=== PATIENT | male | born 1940 | race Caucasian/White ===

== ENCOUNTER 2017-03-23 05:25 | Inpatient (IN) | payer MEDICARE, MEDICAID ==
[~2017-03-23] VITALS: Ht 185.4 cm; Wt 91.8 kg
[~2017-03-23 05:25] MED LIST: CYAN50003 PO; FISH OIL; HYDR4TAB55 PO; LISI10TA4 PO; LONG ACTING INSULIN SQ; MULT-342 PO; [UNRECOGNIZED DRUG - OTHER]
[2017-03-23] MEDS ORDERED: normal saline 1000ML IV soln IVB ONE (06:30)
[2017-03-23] MEDS ORDERED: cefTRIAXone 1g/NS 100ml IVPB 100 ML IV ONE ×2 (06:30→10:45)
[2017-03-23 07:02] LABS: BASOPHILS % (AUTO) 0.2 % (0-1); EOSINOPHILS # (AUTO) 0.1 X10'3 (0-0.9); EOSINOPHILS % (AUTO) 2.3 % (0-6); HEMATOCRIT 39.1 % (42.0-52.0); HEMOGLOBIN 13.3 g/dl (14.0-17.9); LYMPHOCYTES # (AUTO) 0.8 X10'3 (1.1-4.8); LYMPHOCYTES % (AUTO) 12.6 % (21-51); MEAN CORPUSCULAR HEMOGLOBIN 29.1 PG (27.0-31.0); MEAN CORPUSCULAR VOLUME 85.5 FL (78-98); MEAN PLATELET VOLUME 8.3 FL (7.4-10.4); MONOCYTES # (AUTO) 0.6 X10'3 (0-0.9); MONOCYTES % (AUTO) 9.7 % (2-12); NEUTROPHILS # (AUTO) 4.6 X10'3 (1.8-7.7); NEUTROPHILS % (AUTO) 75.2 % (42-75); PLATELET COUNT 132 X10'3 (140-440); RED BLOOD COUNT 4.57 X10'6 (4.70-6.10); RED CELL DISTRIBUTION WIDTH 15.4 % (11.5-14.5); WHITE BLOOD COUNT 6.1 X10'3 (4.5-11.0)
[2017-03-23 07:07] LABS: CLARITY,URINE CLEAR (Clear); COLOR,URINE YELLOW (Yellow); GLUCOSE, URINE NEGATIVE (Neg); KETONES,URINE NEGATIVE (Neg); LEUKOCYTE ESTERASE ,URINE NEGATIVE (Neg); NITRITES, URINE NEGATIVE (Neg); OCCULT BLOOD,URINE NEGATIVE (Neg); PROTEIN,URINE NEGATIVE (Neg); UROBILINOGEN,URINE 0.2 E.U/dL (0.2-1.0)
[2017-03-23 07:09] LABS: UA COLLECTION TYPE URINAL
[2017-03-23 07:19] LABS: INR 1.1 INR; PARTIAL THROMBOPLASTIN TIME 28 SECONDS (22-32); PROTHROMBIN TIME 11.6 SECONDS (9.0-12.0)
[2017-03-23 07:26] LABS: ALANINE AMINOTRANSFERASE 20 U/L (12-78); ALBUMIN 3.8 G/DL (3.4-5.0); ALBUMIN/GLOBULIN RATIO 1.1 (1.1-1.5); ALKALINE PHOSPHATASE 118 IU/L (46-116); ANION GAP 9 (8-16); ASPARTATE AMINO TRANSFERASE 14 U/L (10-37); BILIRUBIN,TOTAL 0.7 MG/DL (0.1-1.0); BLOOD UREA NITROGEN 13 MG/DL (7-18); BUN/CREATININE RATIO 12.3 (5.4-32.0); CALCIUM 9.7 MG/DL (8.5-10.1); CHLORIDE 103 MMOL/L (99-107); CREATININE 1.06 MG/DL (0.60-1.10); GLUCOSE 83 MG/DL (70-104); MAGNESIUM 1.9 MG/DL (1.5-2.4); POTASSIUM 4.3 MMOL/L (3.5-5.1); SODIUM 139 MMOL/L (135-145); TOTAL CARBON DIOXIDE 27.4 MMOL/L (24-32); TOTAL PROTEIN 7.2 G/DL (6.4-8.2); eGFR 68 ML/MIN
[2017-03-23] MEDS ORDERED: iohexol 300mg/ml 100ml inj. ONE (07:37)
[2017-03-23] MEDS ORDERED: CefTRIAXone 2gm/NS 100ml IVPB 100 ML IV ONE (09:35)
[2017-03-23] MEDS ORDERED: vancomycin/NS 1 GM ADD-VANTAGE 250 ML IV ONE (09:35)
[2017-03-23] MEDS ORDERED: magnesium Cl slow-release 64mg tablet PO PRN (10:05)
[2017-03-23] MEDS ORDERED: potassium Cl 20 mEq SR tablet PO PRN ×2 (10:05)
[2017-03-23] MEDS ORDERED: HYDROmorphone 1 mg/ml syringe IV PRN ×2 (10:05)
[2017-03-23] MEDS ORDERED: acetaminophen 325mg tablet PO PRN (10:05)
[2017-03-23] MEDS ORDERED: magnesium hydroxide 30ml (MOM) UD suspension PO PRN (10:05)
[2017-03-23] MEDS ORDERED: mag hydrox/Alum hydrox/simeth 30ml oral suspension PO PRN (10:05)
[2017-03-23] MEDS ORDERED: potassium Cl 40MEQ/NS 500ml 500 ML IV PRN ×2 (10:05)
[2017-03-23] MEDS ORDERED: HYDROcodone/acetaminophen 5mg/325mg tablet PO PRN (10:05)
[2017-03-23] MEDS ORDERED: ondansetron/PF 4mg/2ml inj IV PRN (10:05)
[2017-03-23] MEDS ORDERED: magnesium 2GM in 50ml NS 50 ML IV PRN (10:05)
[2017-03-23] MEDS ORDERED: magnesium 4gm in 100ml NS 100 ML IV PRN (10:05)
[2017-03-23] MEDS: normal saline 1000ml 1,000 ML IV SCH ×2 (10:46→11:37)
[2017-03-23 11:30] VITALS: BP 153/87
[2017-03-23] MEDS: HYDROcodone/acetaminophen 10/325mg tab PO PRN (16:21)
[2017-03-23] MEDS: lactobacillus rhamnosus 10,000 MMU CELLS/CAPSULE PO SCH (17:33)
[2017-03-23 18:00] VITALS: BP 144/82
[2017-03-23] MEDS ORDERED: vancomycin/NS 1 GM ADD-VANTAGE 250 ML IV SCH (20:00)
[2017-03-23] MEDS: vancomycin inj 1,250 MG in normal saline 250ml IV soln 250 ML IV SCH (20:19)
[2017-03-23] MEDS ORDERED: temazepam 15mg capsule PO PRN (21:00)
[2017-03-23 22:00] VITALS: BP 144/73
[2017-03-23] MEDS: lisinopril 10 MG tablet PO SCH (22:22)
[2017-03-23] MEDS: tamsulosin 0.4mg capsule PO SCH (22:23)
[2017-03-24] VITALS (22 sets, daily range): BP systolic 110–179; BP diastolic 57–101
[2017-03-24] MEDS: normal saline 1000ml 1,000 ML IV SCH ×3 (01:18→22:47)
[2017-03-24] MEDS: HYDROcodone/acetaminophen 10/325mg tab PO PRN ×2 (01:21→20:23)
[2017-03-24 06:39] LABS: BASOPHILS % (AUTO) 0.6 % (0-1); EOSINOPHILS # (AUTO) 0.2 X10'3 (0-0.9); EOSINOPHILS % (AUTO) 4.1 % (0-6); HEMOGLOBIN 11.9 g/dl (14.0-17.9); LYMPHOCYTES # (AUTO) 0.9 X10'3 (1.1-4.8); LYMPHOCYTES % (AUTO) 21.5 % (21-51); MEAN CORPUSCULAR HEMOGLOBIN 28.6 PG (27.0-31.0); MEAN CORPUSCULAR HGB CONC 33.2 % (33.0-36.5); MEAN CORPUSCULAR VOLUME 86.3 FL (78-98); MEAN PLATELET VOLUME 8.1 FL (7.4-10.4); MONOCYTES # (AUTO) 0.4 X10'3 (0-0.9); MONOCYTES % (AUTO) 10.7 % (2-12); NEUTROPHILS # (AUTO) 2.6 X10'3 (1.8-7.7); NEUTROPHILS % (AUTO) 63.1 % (42-75); PLATELET COUNT 113 X10'3 (140-440); RED BLOOD COUNT 4.17 X10'6 (4.70-6.10); RED CELL DISTRIBUTION WIDTH 14.8 % (11.5-14.5); WHITE BLOOD COUNT 4.1 X10'3 (4.5-11.0)
[2017-03-24 06:58] LABS: ALANINE AMINOTRANSFERASE 11 U/L (12-78); ALBUMIN 3.1 G/DL (3.4-5.0); ALKALINE PHOSPHATASE 102 IU/L (46-116); ANION GAP 9 (8-16); ASPARTATE AMINO TRANSFERASE 9 U/L (10-37); BILIRUBIN,TOTAL 0.6 MG/DL (0.1-1.0); BLOOD UREA NITROGEN 11 MG/DL (7-18); BUN/CREATININE RATIO 11.5 (5.4-32.0); CALCIUM 8.9 MG/DL (8.5-10.1); CHLORIDE 107 MMOL/L (99-107); CHOL/HDL RATIO 3.1 (0.00-4.99); CHOLESTEROL 122 MG/DL (0-200); CREATININE 0.96 MG/DL (0.60-1.10); GLUCOSE 106 MG/DL (70-104); HDL CHOLESTEROL 40 MG/DL (35-60); LDL CHOLESTEROL 86 MG/DL (50-100); MAGNESIUM 1.8 MG/DL (1.5-2.4); POTASSIUM 3.9 MMOL/L (3.5-5.1); SODIUM 142 MMOL/L (135-145); TOTAL CARBON DIOXIDE 26.5 MMOL/L (24-32); TOTAL PROTEIN 6.2 G/DL (6.4-8.2); TRIGLYCERIDES 46 MG/DL (20-135); eGFR 76 ML/MIN
[2017-03-24] MEDS ORDERED: BUPIVAcaine/PF 2.5 mg/ml (0.25%) 30ml vial ONE (07:14)
[2017-03-24] MEDS: lactobacillus rhamnosus 10,000 MMU CELLS/CAPSULE PO SCH ×2 (07:29→17:46)
[2017-03-24] MEDS: multivitamins, therapeutics tablet PO SCH (08:00)
[2017-03-24] MEDS ORDERED: non-formulary drug (Multivitamins (Multi-Day Vitamin) 1 EACH) PO SCH (08:00)
[2017-03-24] MEDS: cefTRIAXone 1g/NS 100ml IVPB 100 ML IV SCH (08:00)
[2017-03-24] MEDS: vancomycin inj 1,250 MG in normal saline 250ml IV soln 250 ML IV SCH ×2 (08:00→20:22)
[2017-03-24] MEDS: tamsulosin 0.4mg capsule PO SCH ×2 (08:00→20:22)
[2017-03-24] MEDS ORDERED: fentaNYL/PF 50MCG/1 ML 2ML syringe ONE (08:07)
[2017-03-24] MEDS ORDERED: midazolam 2 mg/2 ml injection ONE (08:07)
[2017-03-24] MEDS ORDERED: ringers solution, lacted 1,000 ML IV SCH (08:50)
[2017-03-24] MEDS ORDERED: proCHLORperazine 10 MG/2 ml inj IV PRN (08:50)
[2017-03-24] MEDS ORDERED: ondansetron/PF 4mg/2ml inj IV PRN (08:50)
[2017-03-24] MEDS ORDERED: meperidine/PF 25mg/ml syringe IV PRN ×3 (08:50)
[2017-03-24] MEDS: K and/or MAG REPLACEMENT MC SCH (08:55)
[2017-03-24] MEDS ORDERED: NUT.TX.GLUC.INTOLER,LAC-FR,REG (BOOST GLUCOSE CONTROL) 237 ML PO SCH (18:00)
[2017-03-24] MEDS: lisinopril 10 MG tablet PO SCH (20:22)
[2017-03-24] MEDS ORDERED: MESSAGE TO PHARMACY PO ONE (22:30)
[2017-03-24] MEDS ORDERED: dextrose ORAL solution 15 GM/59 ML bottle PO PRN ×2 (22:30)
[2017-03-24] MEDS ORDERED: insulin Lispro (HumaLOG) vial - multi-dose SQ SCH (22:30)
[2017-03-24] MEDS ORDERED: dextrose 50%-water 50ml dispensing syringe IV PRN ×2 (22:30)
[2017-03-24] MEDS ORDERED: Insulin Detemir pen SQ ONE (23:12)
[2017-03-25 02:00] VITALS: BP 126/66
[2017-03-25 06:53] VITALS: BP 146/92
[2017-03-25] MEDS ORDERED: VANCOMYCIN LEVEL IV NR (07:30)
[2017-03-25] MEDS: tamsulosin 0.4mg capsule PO SCH (07:49)
[2017-03-25] MEDS: cefTRIAXone 1g/NS 100ml IVPB 100 ML IV SCH (07:49)
[2017-03-25] MEDS: multivitamins, therapeutics tablet PO SCH (07:49)
[2017-03-25] MEDS: lactobacillus rhamnosus 10,000 MMU CELLS/CAPSULE PO SCH (07:49)
[2017-03-25] MEDS: normal saline 1000ml 1,000 ML IV SCH (07:56)
[2017-03-25] MEDS: K and/or MAG REPLACEMENT MC SCH (08:00)
[2017-03-25 08:30] LABS: BASOPHILS % (AUTO) 0.4 % (0-1); EOSINOPHILS # (AUTO) 0.2 X10'3 (0-0.9); EOSINOPHILS % (AUTO) 3.3 % (0-6); HEMOGLOBIN 12.3 g/dl (14.0-17.9); LYMPHOCYTES % (AUTO) 20.3 % (21-51); MEAN CORPUSCULAR HEMOGLOBIN 28.6 PG (27.0-31.0); MEAN CORPUSCULAR HGB CONC 33.1 % (33.0-36.5); MEAN CORPUSCULAR VOLUME 86.3 FL (78-98); MEAN PLATELET VOLUME 8.3 FL (7.4-10.4); MONOCYTES # (AUTO) 0.5 X10'3 (0-0.9); NEUTROPHILS # (AUTO) 3.2 X10'3 (1.8-7.7); PLATELET COUNT 127 X10'3 (140-440); RED BLOOD COUNT 4.29 X10'6 (4.70-6.10); WHITE BLOOD COUNT 4.9 X10'3 (4.5-11.0)
[2017-03-25 08:35] LABS: ALANINE AMINOTRANSFERASE 14 U/L (12-78); ALBUMIN 3.2 G/DL (3.4-5.0); ALKALINE PHOSPHATASE 101 IU/L (46-116); ANION GAP 10 (8-16); ASPARTATE AMINO TRANSFERASE 16 U/L (10-37); BILIRUBIN,TOTAL 0.5 MG/DL (0.1-1.0); BLOOD UREA NITROGEN 12 MG/DL (7-18); BUN/CREATININE RATIO 13.2 (5.4-32.0); CALCIUM 9.3 MG/DL (8.5-10.1); CHLORIDE 105 MMOL/L (99-107); CREATININE 0.91 MG/DL (0.60-1.10); GLUCOSE 147 MG/DL (70-104); MAGNESIUM 1.8 MG/DL (1.5-2.4); POTASSIUM 3.5 MMOL/L (3.5-5.1); SODIUM 139 MMOL/L (135-145); TOTAL CARBON DIOXIDE 24.1 MMOL/L (24-32); TOTAL PROTEIN 6.4 G/DL (6.4-8.2); VANCOMYCIN,TROUGH 19.4 UG/ML (6.0-14.0); eGFR 81 ML/MIN
[2017-03-25] MEDS ORDERED: CEPH500C5 PO (09:22)
[2017-03-25] MEDS ORDERED: BACDS PO (09:22)
[2017-03-25] MEDS ORDERED: Insulin Detemir pen SQ SCH (21:00)
== END 2017-03-25 11:00 | disposition home or self-care (01) | DRG 982 ==
LOC: ER 05:26 → ED HOLD 10:05 → EEVIPCON 10:05 → ORTHO 4S 11:30
PROVIDERS: ADMIT Internal Medicine; ATTEND Family Medicine
PROC: BQ2S1ZZ Computerized Tomography (CT Scan) of Left Lower Extremity using Low Osmolar Contrast (ICD-10-PCS; 2017-03-23)
PROC: 0SCG0ZZ Extirpation of Matter from Left Ankle Joint, Open Approach (ICD-10-PCS; principal; 2017-03-24 08:08)
DX: L03.116 Cellulitis of left lower limb (principal); M00.9 Pyogenic arthritis, unspecified; D69.59 Other secondary thrombocytopenia; L02.612 Cutaneous abscess of left foot; D64.9 Anemia, unspecified; B95.62 Methicillin resistant Staphylococcus aureus infection as the cause of diseases classified elsewhere; E11.9 Type 2 diabetes mellitus without complications; B19.20 Unspecified viral hepatitis C without hepatic coma; R58 Hemorrhage, not elsewhere classified; I10 Essential (primary) hypertension; Z79.899 Other long term (current) drug therapy; Z85.72 Personal history of non-Hodgkin lymphomas
CPT/HCPCS: 36415; 73610; 73660; 73701; 80053; 80061; 80202; 81003; 82948; 83036; 83605; 83735; 84145; 85025; 85610; 85730; 87040; 87070; 87075; 87102; 87186; 96365; 99285; A6222; A6255; A6257; A6258; A6446; A6449; A7000; J0696; J2250; J3010; J3370; J3490; J7030; J7120; Q9967

== ENCOUNTER 2017-03-27 10:31 | Emergency (ER) | payer MEDICARE, MEDICAID ==
[~2017-03-27] VITALS: Ht 185.4 cm; Wt 92.0 kg
[~2017-03-27 10:31] MED LIST changes: +BACDS PO; +CEPH500C5 PO; -CYAN50003 PO; -[UNRECOGNIZED DRUG - OTHER]
[2017-03-27 12:45] LABS: BASOPHILS % (AUTO) 0.3 % (0-1); EOSINOPHILS # (AUTO) 0.1 X10'3 (0-0.9); EOSINOPHILS % (AUTO) 2.2 % (0-6); HEMATOCRIT 39.1 % (42.0-52.0); LYMPHOCYTES # (AUTO) 1.1 X10'3 (1.1-4.8); LYMPHOCYTES % (AUTO) 18.4 % (21-51); MEAN CORPUSCULAR HEMOGLOBIN 28.7 PG (27.0-31.0); MEAN CORPUSCULAR HGB CONC 33.1 % (33.0-36.5); MEAN CORPUSCULAR VOLUME 86.6 FL (78-98); MEAN PLATELET VOLUME 7.9 FL (7.4-10.4); MONOCYTES # (AUTO) 0.6 X10'3 (0-0.9); MONOCYTES % (AUTO) 9.1 % (2-12); NEUTROPHILS # (AUTO) 4.3 X10'3 (1.8-7.7); PLATELET COUNT 143 X10'3 (140-440); RED BLOOD COUNT 4.52 X10'6 (4.70-6.10); RED CELL DISTRIBUTION WIDTH 15.1 % (11.5-14.5); WHITE BLOOD COUNT 6.2 X10'3 (4.5-11.0)
[2017-03-27 12:56] LABS: INR 1.1 INR; PARTIAL THROMBOPLASTIN TIME 27 SECONDS (22-32); PROTHROMBIN TIME 11.8 SECONDS (9.0-12.0)
[2017-03-27 13:19] LABS: ALANINE AMINOTRANSFERASE 22 U/L (12-78); ALBUMIN 3.7 G/DL (3.4-5.0); ALBUMIN/GLOBULIN RATIO 1.1 (1.1-1.5); ALKALINE PHOSPHATASE 107 IU/L (46-116); ANION GAP 7 (8-16); ASPARTATE AMINO TRANSFERASE 17 U/L (10-37); BILIRUBIN,TOTAL 0.6 MG/DL (0.1-1.0); BLOOD UREA NITROGEN 15 MG/DL (7-18); BUN/CREATININE RATIO 13.3 (5.4-32.0); CALCIUM 9.7 MG/DL (8.5-10.1); CHLORIDE 103 MMOL/L (99-107); CREATININE 1.13 MG/DL (0.60-1.10); GLUCOSE 187 MG/DL (70-104); MAGNESIUM 2.1 MG/DL (1.5-2.4); POTASSIUM 3.9 MMOL/L (3.5-5.1); SODIUM 137 MMOL/L (135-145); eGFR 63 ML/MIN
[2017-03-27 14:02] LABS: CLARITY,URINE CLEAR (Clear); COLOR,URINE YELLOW (Yellow); GLUCOSE, URINE NEGATIVE (Neg); KETONES,URINE NEGATIVE (Neg); LEUKOCYTE ESTERASE ,URINE NEGATIVE (Neg); NITRITES, URINE NEGATIVE (Neg); OCCULT BLOOD,URINE TRACE-INTACT (Neg); PROTEIN,URINE NEGATIVE (Neg); UA COLLECTION TYPE CLN CATCH MIDSTREAM; UROBILINOGEN,URINE 0.2 E.U/dL (0.2-1.0)
[2017-03-27 14:07] VITALS: BP 128/65
[2017-03-27 14:10] LABS: HYALINE CASTS 0-3 /LPF (NEGATIVE); MUCUS STRANDS FEW /LPF (Neg); SQUAMOUS EPITHELIAL CELL,UR FEW /LPF (FEW)
[2017-03-27 14:11] LABS: BACTERIA,URINE FEW /HPF (Neg); RENAL CELLS, URINE FEW /HPF; WBC,URINE 0-4 /HPF (0-4)
== END 2017-03-27 14:10 | disposition home or self-care (01) ==
LOC: ER 10:31
DX: R60.0 Localized edema (principal); M25.572 Pain in left ankle and joints of left foot; G62.9 Polyneuropathy, unspecified; I10 Essential (primary) hypertension; E11.9 Type 2 diabetes mellitus without complications; Z98.890 Other specified postprocedural states; Z86.19 Personal history of other infectious and parasitic diseases; Z79.899 Other long term (current) drug therapy; Z79.4 Long term (current) use of insulin
CPT/HCPCS: 36415; 71045; 73600; 73630; 80053; 81001; 83605; 83735; 84145; 85025; 85610; 85651; 85730; 87040; 93005; 99285; A6446; A6449

== ENCOUNTER 2017-04-01 09:07 | Day surgery (SDC) | payer MEDICARE, MEDICAID | END 2017-04-01 11:19 | disposition home or self-care (01) | LOC: WOUND CARE 09:07 | PROVIDERS: ATTEND Surgery | DX: T81.89XD Other complications of procedures, not elsewhere classified, subsequent encounter (principal); E11.622 Type 2 diabetes mellitus with other skin ulcer; L97.321 Non-pressure chronic ulcer of left ankle limited to breakdown of skin; I10 Essential (primary) hypertension; E11.42 Type 2 diabetes mellitus with diabetic polyneuropathy; M00.9 Pyogenic arthritis, unspecified; Z96.653 Presence of artificial knee joint, bilateral; Z72.89 Other problems related to lifestyle; Z79.82 Long term (current) use of aspirin; Z79.899 Other long term (current) drug therapy; Y83.8 Other surgical procedures as the cause of abnormal reaction of the patient, or of later complication, without mention of misadventure at the time of the procedure | CPT/HCPCS: 10180; 36416; 82948; 87070; 87075; 87102; A6021; A6222; A6449; 10060 ==

== ENCOUNTER 2017-04-04 10:40 | Outpatient (CLI) | payer MEDICARE, MEDICAID ==
[~2017-04-04 10:40] MED LIST changes: -BACDS PO
[2017-04-04] MEDS ORDERED: LIDOcaine 2% 5ml jelly ONE (12:20)
== END 2017-04-04 12:49 | disposition home or self-care (01) ==
LOC: WOUND CARE 10:40 → EDSTATUS 11:00 → WOUND CARE 12:49
PROVIDERS: ATTEND Surgery
DX: T81.89XD Other complications of procedures, not elsewhere classified, subsequent encounter (principal); E11.622 Type 2 diabetes mellitus with other skin ulcer; L97.321 Non-pressure chronic ulcer of left ankle limited to breakdown of skin; I10 Essential (primary) hypertension; M00.9 Pyogenic arthritis, unspecified; E11.42 Type 2 diabetes mellitus with diabetic polyneuropathy; Z79.82 Long term (current) use of aspirin; Z79.899 Other long term (current) drug therapy; Z72.89 Other problems related to lifestyle; Z96.653 Presence of artificial knee joint, bilateral; Z79.4 Long term (current) use of insulin; Y83.8 Other surgical procedures as the cause of abnormal reaction of the patient, or of later complication, without mention of misadventure at the time of the procedure
CPT/HCPCS: 36416; 82948; 99215; A6266; A6446

== ENCOUNTER 2017-04-08 10:30 | Outpatient (CLI) | payer MEDICARE, MEDICAID | END 2017-04-08 11:45 | disposition home or self-care (01) | LOC: WOUND CARE 10:30 → EDSTATUS 11:00 → WOUND CARE 11:45 | PROVIDERS: ATTEND Surgery | DX: T81.89XD Other complications of procedures, not elsewhere classified, subsequent encounter (principal); E11.622 Type 2 diabetes mellitus with other skin ulcer; L97.321 Non-pressure chronic ulcer of left ankle limited to breakdown of skin; E11.42 Type 2 diabetes mellitus with diabetic polyneuropathy; I10 Essential (primary) hypertension; Z79.82 Long term (current) use of aspirin; Z79.4 Long term (current) use of insulin; Z79.899 Other long term (current) drug therapy; Z72.89 Other problems related to lifestyle; Z96.653 Presence of artificial knee joint, bilateral; Z85.72 Personal history of non-Hodgkin lymphomas; Z85.89 Personal history of malignant neoplasm of other organs and systems; Y83.8 Other surgical procedures as the cause of abnormal reaction of the patient, or of later complication, without mention of misadventure at the time of the procedure | CPT/HCPCS: 36416; 82948; 99215; A6266; A6446 ==

== ENCOUNTER 2017-04-11 10:34 | Outpatient (CLI) | payer MEDICARE, MEDICAID | END 2017-04-11 12:46 | disposition home or self-care (01) | LOC: WOUND CARE 10:34 | PROVIDERS: ATTEND Surgery | DX: T81.89XD Other complications of procedures, not elsewhere classified, subsequent encounter (principal); E11.622 Type 2 diabetes mellitus with other skin ulcer; L97.321 Non-pressure chronic ulcer of left ankle limited to breakdown of skin; E11.42 Type 2 diabetes mellitus with diabetic polyneuropathy; I10 Essential (primary) hypertension; B19.20 Unspecified viral hepatitis C without hepatic coma; Z79.82 Long term (current) use of aspirin; Z79.4 Long term (current) use of insulin; Z79.899 Other long term (current) drug therapy; Z72.89 Other problems related to lifestyle; Z85.89 Personal history of malignant neoplasm of other organs and systems; Z85.72 Personal history of non-Hodgkin lymphomas; Z96.653 Presence of artificial knee joint, bilateral; Y83.8 Other surgical procedures as the cause of abnormal reaction of the patient, or of later complication, without mention of misadventure at the time of the procedure | CPT/HCPCS: 36416; 82948; 99215; A6209; A6266; A6446 ==

== ENCOUNTER 2017-04-15 09:57 | Outpatient (CLI) | payer MEDICARE, MEDICAID | END 2017-04-15 11:59 | disposition home or self-care (01) | LOC: WOUND CARE 09:57 → EDSTATUS 10:00 → WOUND CARE 11:59 | PROVIDERS: ATTEND Surgery | DX: T81.89XD Other complications of procedures, not elsewhere classified, subsequent encounter (principal); E11.622 Type 2 diabetes mellitus with other skin ulcer; L97.321 Non-pressure chronic ulcer of left ankle limited to breakdown of skin; E11.42 Type 2 diabetes mellitus with diabetic polyneuropathy; I10 Essential (primary) hypertension; Z79.82 Long term (current) use of aspirin; Z79.4 Long term (current) use of insulin; Z79.899 Other long term (current) drug therapy; Z72.89 Other problems related to lifestyle; Z85.89 Personal history of malignant neoplasm of other organs and systems; Z85.72 Personal history of non-Hodgkin lymphomas; Z96.653 Presence of artificial knee joint, bilateral; Z86.19 Personal history of other infectious and parasitic diseases; Y83.8 Other surgical procedures as the cause of abnormal reaction of the patient, or of later complication, without mention of misadventure at the time of the procedure | CPT/HCPCS: 82948; 99215; A6196; A6206; A6266 ==

== ENCOUNTER 2017-04-18 08:48 | Outpatient (CLI) | payer MEDICARE, MEDICAID ==
[2017-04-18] MEDS ORDERED: TAM75C PO (19:13)
== END 2017-04-18 11:30 | disposition home or self-care (01) ==
LOC: WOUND CARE 08:48 → EDSTATUS 09:00 → WOUND CARE 11:30
PROVIDERS: ATTEND Surgery
DX: T81.89XD Other complications of procedures, not elsewhere classified, subsequent encounter (principal); L97.321 Non-pressure chronic ulcer of left ankle limited to breakdown of skin; L97.521 Non-pressure chronic ulcer of other part of left foot limited to breakdown of skin; I10 Essential (primary) hypertension; E11.42 Type 2 diabetes mellitus with diabetic polyneuropathy; B19.20 Unspecified viral hepatitis C without hepatic coma; Z79.82 Long term (current) use of aspirin; Z79.4 Long term (current) use of insulin; Z79.899 Other long term (current) drug therapy; Z72.89 Other problems related to lifestyle; Z85.89 Personal history of malignant neoplasm of other organs and systems; Z85.72 Personal history of non-Hodgkin lymphomas; Z96.653 Presence of artificial knee joint, bilateral; Y83.8 Other surgical procedures as the cause of abnormal reaction of the patient, or of later complication, without mention of misadventure at the time of the procedure
CPT/HCPCS: 36416; 82948; 99211; A6206; A6209; A6266

== ENCOUNTER 2017-04-18 16:54 | Emergency (ER) | payer MEDICARE, MEDICAID ==
[~2017-04-18] VITALS: Ht 185.4 cm; Wt 87.3 kg
[2017-04-18] MEDS ORDERED: normal saline 1000ML IV soln IVB ONE (17:15)
[2017-04-18 17:50] LABS: CLARITY,URINE CLEAR (Clear); COLOR,URINE YELLOW (Yellow); GLUCOSE, URINE NEGATIVE (Neg); KETONES,URINE NEGATIVE (Neg); LEUKOCYTE ESTERASE ,URINE NEGATIVE (Neg); NITRITES, URINE NEGATIVE (Neg); OCCULT BLOOD,URINE NEGATIVE (Neg); PH,URINE 5.5 (4.8-8.0); PROTEIN,URINE NEGATIVE (Neg); UA COLLECTION TYPE URINAL; UROBILINOGEN,URINE 0.2 E.U/dL (0.2-1.0)
[2017-04-18 18:01] LABS: URINE AMPHETAMINE SCREEN NEGATIVE (Neg); URINE BARBITUATE SCREEN NEGATIVE (Neg); URINE BENZODIAZEPINES SCREEN NEGATIVE (Neg); URINE CANNABINOID SCREEN NEGATIVE (Neg); URINE COCAINE SCREEN NEGATIVE (Neg); URINE METHADONE SCREEN NEGATIVE (Neg); URINE OPIATE SCREEN POSITIVE (Neg); URINE PHENCYCLIDINE SCREEN NEGATIVE (Neg)
[2017-04-18] MEDS ORDERED: ibuprofen 200mg tablet PO ONE (18:05)
[2017-04-18] MEDS ORDERED: acetaminophen 325mg tablet PO ONE (18:05)
[2017-04-18 18:26] LABS: BASOPHILS % (AUTO) 0.3 % (0-1); EOSINOPHILS % (AUTO) 0 % (0-6); HEMATOCRIT 38.6 % (42.0-52.0); HEMOGLOBIN 13.5 g/dl (14.0-17.9); LYMPHOCYTES # (AUTO) 0.5 X10'3 (1.1-4.8); LYMPHOCYTES % (AUTO) 3.9 % (21-51); MEAN CORPUSCULAR HEMOGLOBIN 29.3 PG (27.0-31.0); MEAN CORPUSCULAR VOLUME 83.7 FL (78-98); MEAN PLATELET VOLUME 7.4 FL (7.4-10.4); MONOCYTES # (AUTO) 0.8 X10'3 (0-0.9); MONOCYTES % (AUTO) 5.6 % (2-12); NEUTROPHILS # (AUTO) 12.3 X10'3 (1.8-7.7); NEUTROPHILS % (AUTO) 90.2 % (42-75); PLATELET COUNT 121 X10'3 (140-440); RED BLOOD COUNT 4.61 X10'6 (4.70-6.10); RED CELL DISTRIBUTION WIDTH 15.5 % (11.5-14.5); WHITE BLOOD COUNT 13.7 X10'3 (4.5-11.0)
[2017-04-18] MEDS ORDERED: clindamycin 600mg/D5W 50ml 50 ML IV ONE (18:35)
[2017-04-18 18:37] LABS: INR 1.2 INR; PARTIAL THROMBOPLASTIN TIME 27 SECONDS (22-32); PROTHROMBIN TIME 11.9 SECONDS (9.0-12.0)
[2017-04-18 18:44] LABS: ALANINE AMINOTRANSFERASE 20 U/L (12-78); ALBUMIN 3.9 G/DL (3.4-5.0); ALBUMIN/GLOBULIN RATIO 1.2 (1.1-1.5); ALKALINE PHOSPHATASE 104 IU/L (46-116); ANION GAP 9 (8-16); ASPARTATE AMINO TRANSFERASE 16 U/L (10-37); BILIRUBIN,TOTAL 0.7 MG/DL (0.1-1.0); BLOOD UREA NITROGEN 22 MG/DL (7-18); CALCIUM 9.2 MG/DL (8.5-10.1); CHLORIDE 103 MMOL/L (99-107); GLUCOSE 68 MG/DL (70-104); POTASSIUM 3.9 MMOL/L (3.5-5.1); SODIUM 138 MMOL/L (135-145); TOTAL CARBON DIOXIDE 26.3 MMOL/L (24-32); TOTAL PROTEIN 7.2 G/DL (6.4-8.2); TROPONIN I < 0.04 NG/ML (0.0-0.05); eGFR 65 ML/MIN
[2017-04-18] MEDS ORDERED: TAM75C PO (19:13)
[2017-04-18 20:08] VITALS: BP 128/81
== END 2017-04-18 20:09 | disposition home or self-care (01) ==
LOC: ER 16:54
DX: J11.1 Influenza due to unidentified influenza virus with other respiratory manifestations (principal); E11.621 Type 2 diabetes mellitus with foot ulcer; E11.42 Type 2 diabetes mellitus with diabetic polyneuropathy; I10 Essential (primary) hypertension; Z86.19 Personal history of other infectious and parasitic diseases; Z98.890 Other specified postprocedural states; Z79.899 Other long term (current) drug therapy
CPT/HCPCS: 36415; 70450; 71045; 80053; 80305; 81003; 83605; 84484; 85025; 85610; 85730; 87040; 87502; 87503; 93005; 96365; 99285; J3490; J7030

== ENCOUNTER 2017-04-22 08:50 | Day surgery (SDC) | payer MEDICARE, MEDICAID ==
[~2017-04-22 08:50] MED LIST changes: -CEPH500C5 PO; +TAM75C PO
[2017-04-22] MEDS ORDERED: LIDOcaine 2% 5ml jelly ONE (09:39)
[2017-04-22] MEDS ORDERED: SULF-14 PO (12:31)
== END 2017-04-22 11:10 | disposition home or self-care (01) ==
LOC: WOUND CARE 08:50
PROVIDERS: ATTEND Surgery
DX: T81.89XD Other complications of procedures, not elsewhere classified, subsequent encounter (principal); E11.622 Type 2 diabetes mellitus with other skin ulcer; L97.321 Non-pressure chronic ulcer of left ankle limited to breakdown of skin; I10 Essential (primary) hypertension; M00.9 Pyogenic arthritis, unspecified; E11.42 Type 2 diabetes mellitus with diabetic polyneuropathy; Z79.82 Long term (current) use of aspirin; Z79.899 Other long term (current) drug therapy; Z72.89 Other problems related to lifestyle; Z96.653 Presence of artificial knee joint, bilateral; Z79.4 Long term (current) use of insulin; Y83.8 Other surgical procedures as the cause of abnormal reaction of the patient, or of later complication, without mention of misadventure at the time of the procedure
CPT/HCPCS: 36416; 82948; 87070; 87075; 87077; 87102; 87186; 99215; A6196; A6206; A6209; A6266

== ENCOUNTER 2017-04-29 11:25 | Day surgery (SDC) | payer MEDICARE, MEDICAID ==
[~2017-04-29 11:25] MED LIST changes: +SULF-14 PO; -TAM75C PO
[2017-04-29] MEDS ORDERED: LIDOcaine 2% 5ml jelly ONE (11:45)
[2017-04-29] MEDS ORDERED: RIFA300C4 PO (13:42)
== END 2017-04-29 13:00 | disposition home or self-care (01) ==
LOC: WOUND CARE 11:25
PROVIDERS: ATTEND Surgery
DX: T81.89XD Other complications of procedures, not elsewhere classified, subsequent encounter (principal); E11.622 Type 2 diabetes mellitus with other skin ulcer; L97.321 Non-pressure chronic ulcer of left ankle limited to breakdown of skin; E11.42 Type 2 diabetes mellitus with diabetic polyneuropathy; I10 Essential (primary) hypertension; M00.9 Pyogenic arthritis, unspecified; Z85.89 Personal history of malignant neoplasm of other organs and systems; Z79.82 Long term (current) use of aspirin; Z79.4 Long term (current) use of insulin; Z79.899 Other long term (current) drug therapy; Z72.89 Other problems related to lifestyle; Z96.653 Presence of artificial knee joint, bilateral; Y83.8 Other surgical procedures as the cause of abnormal reaction of the patient, or of later complication, without mention of misadventure at the time of the procedure
CPT/HCPCS: 11042; 36416; 82948; A6206; A6209

== ENCOUNTER 2017-05-03 09:25 | Day surgery (SDC) | payer MEDICARE, MEDICAID ==
[~2017-05-03 09:25] MED LIST changes: +RIFA300C4 PO
[2017-05-03] MEDS ORDERED: LIDOcaine 2% 5ml jelly ONE (09:48)
== END 2017-05-03 10:48 | disposition home or self-care (01) ==
LOC: WOUND CARE 09:25
PROVIDERS: ATTEND Surgery
DX: T81.89XD Other complications of procedures, not elsewhere classified, subsequent encounter (principal); E11.622 Type 2 diabetes mellitus with other skin ulcer; L97.321 Non-pressure chronic ulcer of left ankle limited to breakdown of skin; E11.42 Type 2 diabetes mellitus with diabetic polyneuropathy; I10 Essential (primary) hypertension; M00.9 Pyogenic arthritis, unspecified; Z85.89 Personal history of malignant neoplasm of other organs and systems; Z79.82 Long term (current) use of aspirin; Z79.4 Long term (current) use of insulin; Z79.899 Other long term (current) drug therapy; Z72.89 Other problems related to lifestyle; Z96.653 Presence of artificial knee joint, bilateral; Y83.8 Other surgical procedures as the cause of abnormal reaction of the patient, or of later complication, without mention of misadventure at the time of the procedure
CPT/HCPCS: 11042; A6021; A6212; A6222; A6223; A6446

== ENCOUNTER 2017-05-10 09:16 | Day surgery (SDC) | payer MEDICARE, MEDICAID ==
[2017-05-10] MEDS ORDERED: LIDOcaine 2% 5ml jelly ONE (10:01)
== END 2017-05-10 10:49 | disposition home or self-care (01) ==
LOC: WOUND CARE 09:16
PROVIDERS: ATTEND Surgery
DX: T81.89XD Other complications of procedures, not elsewhere classified, subsequent encounter (principal); E11.622 Type 2 diabetes mellitus with other skin ulcer; L97.321 Non-pressure chronic ulcer of left ankle limited to breakdown of skin; E11.42 Type 2 diabetes mellitus with diabetic polyneuropathy; I10 Essential (primary) hypertension; M00.9 Pyogenic arthritis, unspecified; Z85.89 Personal history of malignant neoplasm of other organs and systems; Z79.82 Long term (current) use of aspirin; Z79.4 Long term (current) use of insulin; Z79.899 Other long term (current) drug therapy; Z72.89 Other problems related to lifestyle; Z96.653 Presence of artificial knee joint, bilateral; Y83.8 Other surgical procedures as the cause of abnormal reaction of the patient, or of later complication, without mention of misadventure at the time of the procedure
CPT/HCPCS: 11042; 36416; 82948; A6021; A6206; A6209; A6223

== ENCOUNTER 2017-05-17 09:24 | Day surgery (SDC) | payer MEDICARE, MEDICAID ==
[2017-05-17] MEDS ORDERED: LIDOcaine 2% 5ml jelly ONE (09:40)
[2017-05-17] MEDS ORDERED: LINE600T36 PO (13:45)
== END 2017-05-17 10:42 | disposition home or self-care (01) ==
LOC: WOUND CARE 09:24
PROVIDERS: ATTEND Surgery
DX: T81.89XD Other complications of procedures, not elsewhere classified, subsequent encounter (principal); E11.622 Type 2 diabetes mellitus with other skin ulcer; L97.321 Non-pressure chronic ulcer of left ankle limited to breakdown of skin; E11.42 Type 2 diabetes mellitus with diabetic polyneuropathy; I10 Essential (primary) hypertension; M00.9 Pyogenic arthritis, unspecified; Z85.89 Personal history of malignant neoplasm of other organs and systems; Z79.82 Long term (current) use of aspirin; Z79.4 Long term (current) use of insulin; Z79.899 Other long term (current) drug therapy; Z72.89 Other problems related to lifestyle; Z96.653 Presence of artificial knee joint, bilateral; Y83.8 Other surgical procedures as the cause of abnormal reaction of the patient, or of later complication, without mention of misadventure at the time of the procedure
CPT/HCPCS: 11042; 36416; 82948; A6021; A6206; A6223

== ENCOUNTER 2017-05-27 10:39 | Day surgery (SDC) | payer MEDICARE, MEDICAID ==
[~2017-05-27 10:39] MED LIST changes: +LINE600T36 PO
[2017-05-27] MEDS ORDERED: LIDOcaine 2% 5ml jelly ONE (11:42)
[2017-05-27] MEDS ORDERED: dextrose ORAL solution 15 GM/59 ML bottle ONE (11:49)
[2017-05-27] MEDS ORDERED: gentamicin 0.1% topical ointment 15gm TP ONE (15:50)
== END 2017-05-27 12:44 | disposition home or self-care (01) ==
LOC: WOUND CARE 10:39
PROVIDERS: ATTEND Surgery
DX: T81.89XD Other complications of procedures, not elsewhere classified, subsequent encounter (principal); E11.622 Type 2 diabetes mellitus with other skin ulcer; L97.321 Non-pressure chronic ulcer of left ankle limited to breakdown of skin; E11.42 Type 2 diabetes mellitus with diabetic polyneuropathy; I10 Essential (primary) hypertension; M00.9 Pyogenic arthritis, unspecified; Z85.89 Personal history of malignant neoplasm of other organs and systems; Z79.82 Long term (current) use of aspirin; Z79.4 Long term (current) use of insulin; Z79.899 Other long term (current) drug therapy; Z72.89 Other problems related to lifestyle; Z96.653 Presence of artificial knee joint, bilateral; Y83.8 Other surgical procedures as the cause of abnormal reaction of the patient, or of later complication, without mention of misadventure at the time of the procedure
CPT/HCPCS: 11042; 36416; 82948; A6021; A6222; A6223

== ENCOUNTER 2017-06-03 09:38 | Day surgery (SDC) | payer MEDICARE, MEDICAID ==
[2017-06-03] MEDS ORDERED: LIDOcaine 2% 5ml jelly ONE (09:48)
[2017-06-03] MEDS ORDERED: hydrocortisone 1% cream 28gm TP ONE (11:14)
[2017-06-04] MEDS ORDERED: LANTUS SQ (01:19)
[2017-06-04] MEDS ORDERED: DOCU50LI12 (06:49)
[2017-06-04] MEDS ORDERED: GLIM1TAB46 (06:50)
[2017-06-04] MEDS ORDERED: LINE600T36 PO (06:52)
== END 2017-06-03 11:30 | disposition home or self-care (01) ==
LOC: WOUND CARE 09:38
PROVIDERS: ATTEND Surgery
DX: T81.89XD Other complications of procedures, not elsewhere classified, subsequent encounter (principal); E11.622 Type 2 diabetes mellitus with other skin ulcer; L97.321 Non-pressure chronic ulcer of left ankle limited to breakdown of skin; E11.42 Type 2 diabetes mellitus with diabetic polyneuropathy; I10 Essential (primary) hypertension; M00.9 Pyogenic arthritis, unspecified; Z85.89 Personal history of malignant neoplasm of other organs and systems; Z79.82 Long term (current) use of aspirin; Z79.4 Long term (current) use of insulin; Z79.899 Other long term (current) drug therapy; Z72.89 Other problems related to lifestyle; Z96.653 Presence of artificial knee joint, bilateral; Y83.8 Other surgical procedures as the cause of abnormal reaction of the patient, or of later complication, without mention of misadventure at the time of the procedure
CPT/HCPCS: 36416; 82948; 97597; A6209; A6223

== ENCOUNTER 2017-06-03 19:16 | Inpatient (IN) | payer MEDICARE, MEDICAID ==
[~2017-06-03] VITALS: Ht 185.4 cm; Wt 86.4 kg
[2017-06-03] MEDS ORDERED: normal saline 1000ML IV soln IV ONE ×2 (19:30→20:30)
[2017-06-03] MEDS ORDERED: CefTRIAXone 2gm/NS 100ml IVPB 100 ML IV ONE (19:30)
[2017-06-03] MEDS ORDERED: vancomycin/NS 1 GM ADD-VANTAGE 250 ML IV ONE (19:30)
[2017-06-03 19:58] LABS: CLARITY,URINE CLEAR (Clear); COLOR,URINE YELLOW (Yellow); GLUCOSE, URINE NEGATIVE (Neg); KETONES,URINE NEGATIVE (Neg); LEUKOCYTE ESTERASE ,URINE NEGATIVE (Neg); NITRITES, URINE NEGATIVE (Neg); OCCULT BLOOD,URINE NEGATIVE (Neg); PH,URINE 6.5 (4.8-8.0); PROTEIN,URINE NEGATIVE (Neg); UROBILINOGEN,URINE 0.2 E.U/dL (0.2-1.0)
[2017-06-03 20:04] LABS: UA COLLECTION TYPE NON-SPECIFIED
[2017-06-03 20:07] LABS: BASOPHILS % (AUTO) 0.1 % (0-1); EOSINOPHILS % (AUTO) 0 % (0-6); HEMATOCRIT 32.4 % (42.0-52.0); HEMOGLOBIN 11.1 g/dl (14.0-17.9); LYMPHOCYTES # (AUTO) 1.1 X10'3 (1.1-4.8); LYMPHOCYTES % (AUTO) 12.4 % (21-51); MEAN CORPUSCULAR HEMOGLOBIN 29.5 PG (27.0-31.0); MEAN CORPUSCULAR HGB CONC 34.4 % (33.0-36.5); MEAN CORPUSCULAR VOLUME 85.9 FL (78-98); MEAN PLATELET VOLUME 7.2 FL (7.4-10.4); MONOCYTES % (AUTO) 11.1 % (2-12); NEUTROPHILS # (AUTO) 6.8 X10'3 (1.8-7.7); NEUTROPHILS % (AUTO) 76.4 % (42-75); PLATELET COUNT 116 X10'3 (140-440); RED BLOOD COUNT 3.78 X10'6 (4.70-6.10); RED CELL DISTRIBUTION WIDTH 17.7 % (11.5-14.5); WHITE BLOOD COUNT 8.9 X10'3 (4.5-11.0)
[2017-06-03 20:17] LABS: INR 1.2 INR; PARTIAL THROMBOPLASTIN TIME 32 SECONDS (22-32); PROTHROMBIN TIME 12.7 SECONDS (9.0-12.0)
[2017-06-03 20:30] LABS: ALANINE AMINOTRANSFERASE 22 U/L (12-78); ALBUMIN 3.6 G/DL (3.4-5.0); ALKALINE PHOSPHATASE 101 IU/L (46-116); ANION GAP 9 (8-16); ASPARTATE AMINO TRANSFERASE 14 U/L (10-37); BILIRUBIN,TOTAL 0.8 MG/DL (0.1-1.0); BLOOD UREA NITROGEN 20 MG/DL (7-18); BUN/CREATININE RATIO 18.7 (5.4-32.0); CALCIUM 9.1 MG/DL (8.5-10.1); CHLORIDE 101 MMOL/L (99-107); CREATININE 1.07 MG/DL (0.60-1.10); GLUCOSE 91 MG/DL (70-104); MAGNESIUM 1.8 MG/DL (1.5-2.4); POTASSIUM 3.8 MMOL/L (3.5-5.1); SODIUM 137 MMOL/L (135-145); TOTAL CARBON DIOXIDE 26.7 MMOL/L (24-32); TOTAL PROTEIN 7.1 G/DL (6.4-8.2); eGFR 67 ML/MIN
[2017-06-03] MEDS ORDERED: mag hydrox/Alum hydrox/simeth 30ml oral suspension PO PRN (21:25)
[2017-06-03] MEDS ORDERED: acetaminophen 325mg tablet PO PRN (21:25)
[2017-06-03] MEDS ORDERED: magnesium hydroxide 30ml (MOM) UD suspension PO PRN (21:25)
[2017-06-03] MEDS ORDERED: ondansetron/PF 4mg/2ml inj IV PRN (21:25)
[2017-06-04] MEDS: linezolid 600mg tablet PO SCH ×3 (00:19→20:43)
[2017-06-04] MEDS: heparin, porcine 5000 units/ml vial SQ SCH ×4 (00:19→23:23)
[2017-06-04] MEDS ORDERED: LANTUS SQ (01:19)
[2017-06-04] MEDS: morphine 4 MG/ML inj SYRINge IV PRN ×2 (01:44→07:15)
[2017-06-04 06:08] LABS: BASOPHILS % (AUTO) 0.6 % (0-1); EOSINOPHILS # (AUTO) 0.1 X10'3 (0-0.9); HEMATOCRIT 27.1 % (42.0-52.0); HEMOGLOBIN 9.3 g/dl (14.0-17.9); LYMPHOCYTES # (AUTO) 1.3 X10'3 (1.1-4.8); LYMPHOCYTES % (AUTO) 16.8 % (21-51); MEAN CORPUSCULAR HEMOGLOBIN 29.4 PG (27.0-31.0); MEAN CORPUSCULAR HGB CONC 34.4 % (33.0-36.5); MEAN CORPUSCULAR VOLUME 85.5 FL (78-98); MEAN PLATELET VOLUME 6.8 FL (7.4-10.4); MONOCYTES # (AUTO) 0.9 X10'3 (0-0.9); NEUTROPHILS # (AUTO) 5.6 X10'3 (1.8-7.7); NEUTROPHILS % (AUTO) 70.6 % (42-75); PLATELET COUNT 101 X10'3 (140-440); RED BLOOD COUNT 3.17 X10'6 (4.70-6.10); RED CELL DISTRIBUTION WIDTH 18.9 % (11.5-14.5)
[2017-06-04 06:31] LABS: ALANINE AMINOTRANSFERASE 22 U/L (12-78); ALKALINE PHOSPHATASE 80 IU/L (46-116); ANION GAP 8 (8-16); ASPARTATE AMINO TRANSFERASE 12 U/L (10-37); BILIRUBIN,TOTAL 0.7 MG/DL (0.1-1.0); BLOOD UREA NITROGEN 18 MG/DL (7-18); BUN/CREATININE RATIO 19.1 (5.4-32.0); CALCIUM 8.3 MG/DL (8.5-10.1); CHLORIDE 103 MMOL/L (99-107); CREATININE 0.94 MG/DL (0.60-1.10); GLUCOSE 115 MG/DL (70-104); POTASSIUM 3.6 MMOL/L (3.5-5.1); SODIUM 136 MMOL/L (135-145); TOTAL CARBON DIOXIDE 24.7 MMOL/L (24-32); eGFR 78 ML/MIN
[2017-06-04] MEDS ORDERED: DOCU50LI12 (06:49)
[2017-06-04] MEDS ORDERED: GLIM1TAB46 (06:50)
[2017-06-04] MEDS ORDERED: LINE600T36 PO (06:52)
[2017-06-04] MEDS: insulin glargine (Lantus) pen - multi-dose SQ SCH (09:31)
[2017-06-04] MEDS: lisinopril 10 MG tablet PO SCH (09:32)
[2017-06-04 15:57] VITALS: BP 105/54
[2017-06-04 20:00] VITALS: BP 110/66
[2017-06-05] VITALS: BP 122/71
[2017-06-05] MEDS: morphine 4 MG/ML inj SYRINge IV PRN (00:29)
[2017-06-05 05:55] LABS: BASOPHILS % (AUTO) 0.3 % (0-1); EOSINOPHILS # (AUTO) 0.1 X10'3 (0-0.9); EOSINOPHILS % (AUTO) 2.1 % (0-6); HEMATOCRIT 26.5 % (42.0-52.0); HEMOGLOBIN 9.4 g/dl (14.0-17.9); LYMPHOCYTES # (AUTO) 1.3 X10'3 (1.1-4.8); LYMPHOCYTES % (AUTO) 19.8 % (21-51); MEAN CORPUSCULAR HEMOGLOBIN 29.8 PG (27.0-31.0); MEAN CORPUSCULAR HGB CONC 35.4 % (33.0-36.5); MEAN CORPUSCULAR VOLUME 84.2 FL (78-98); MEAN PLATELET VOLUME 7.4 FL (7.4-10.4); MONOCYTES # (AUTO) 0.7 X10'3 (0-0.9); MONOCYTES % (AUTO) 10.4 % (2-12); NEUTROPHILS # (AUTO) 4.5 X10'3 (1.8-7.7); NEUTROPHILS % (AUTO) 67.4 % (42-75); PLATELET COUNT 93 X10'3 (140-440); RED BLOOD COUNT 3.15 X10'6 (4.70-6.10); RED CELL DISTRIBUTION WIDTH 18.4 % (11.5-14.5); WHITE BLOOD COUNT 6.6 X10'3 (4.5-11.0)
[2017-06-05 06:17] LABS: ALANINE AMINOTRANSFERASE 19 U/L (12-78); ALKALINE PHOSPHATASE 77 IU/L (46-116); ANION GAP 8 (8-16); ASPARTATE AMINO TRANSFERASE 10 U/L (10-37); BILIRUBIN,TOTAL 0.6 MG/DL (0.1-1.0); BLOOD UREA NITROGEN 20 MG/DL (7-18); BUN/CREATININE RATIO 18.5 (5.4-32.0); CALCIUM 8.7 MG/DL (8.5-10.1); CHLORIDE 102 MMOL/L (99-107); CREATININE 1.08 MG/DL (0.60-1.10); GLUCOSE 126 MG/DL (70-104); POTASSIUM 3.7 MMOL/L (3.5-5.1); SODIUM 136 MMOL/L (135-145); TOTAL CARBON DIOXIDE 26.5 MMOL/L (24-32); TOTAL PROTEIN 6.1 G/DL (6.4-8.2); eGFR 66 ML/MIN
[2017-06-05 07:00] VITALS: BP 117/69
[2017-06-05] MEDS: heparin, porcine 5000 units/ml vial SQ SCH ×2 (08:00→17:09)
[2017-06-05] MEDS: insulin glargine (Lantus) pen - multi-dose SQ SCH (09:15)
[2017-06-05] MEDS: linezolid 600mg tablet PO SCH ×2 (09:17→20:20)
[2017-06-05] MEDS: lisinopril 10 MG tablet PO SCH (09:17)
[2017-06-05] MEDS ORDERED: pneumococcal 23-VAL P-sac vacc 25 mcg/0.5ml vial IMVAC ONE (10:00)
[2017-06-05 11:00] VITALS: BP 116/62
[2017-06-05 19:30] VITALS: BP 107/58
[2017-06-05] MEDS: lactobacillus rhamnosus 10,000 MMU CELLS/CAPSULE PO SCH (20:20)
[2017-06-05] MEDS: HYDROmorphone 2mg tablet PO PRN (20:21)
[2017-06-06] VITALS: BP 128/84
[2017-06-06] MEDS: heparin, porcine 5000 units/ml vial SQ SCH ×2 (01:14→09:16)
[2017-06-06 05:39] LABS: BASOPHILS % (AUTO) 0.3 % (0-1); EOSINOPHILS # (AUTO) 0.1 X10'3 (0-0.9); EOSINOPHILS % (AUTO) 2.1 % (0-6); HEMATOCRIT 29.9 % (42.0-52.0); HEMOGLOBIN 10.3 g/dl (14.0-17.9); LYMPHOCYTES # (AUTO) 1.3 X10'3 (1.1-4.8); LYMPHOCYTES % (AUTO) 22.8 % (21-51); MEAN CORPUSCULAR HEMOGLOBIN 29.5 PG (27.0-31.0); MEAN CORPUSCULAR HGB CONC 34.4 % (33.0-36.5); MEAN CORPUSCULAR VOLUME 85.7 FL (78-98); MEAN PLATELET VOLUME 7.3 FL (7.4-10.4); MONOCYTES # (AUTO) 0.6 X10'3 (0-0.9); MONOCYTES % (AUTO) 10.8 % (2-12); NEUTROPHILS # (AUTO) 3.5 X10'3 (1.8-7.7); PLATELET COUNT 117 X10'3 (140-440); RED BLOOD COUNT 3.48 X10'6 (4.70-6.10); RED CELL DISTRIBUTION WIDTH 17.9 % (11.5-14.5); WHITE BLOOD COUNT 5.5 X10'3 (4.5-11.0)
[2017-06-06 05:50] LABS: ALANINE AMINOTRANSFERASE 18 U/L (12-78); ALBUMIN 3.2 G/DL (3.4-5.0); ALBUMIN/GLOBULIN RATIO 0.9 (1.1-1.5); ALKALINE PHOSPHATASE 82 IU/L (46-116); ANION GAP 8 (8-16); ASPARTATE AMINO TRANSFERASE 10 U/L (10-37); BILIRUBIN,TOTAL 0.5 MG/DL (0.1-1.0); BLOOD UREA NITROGEN 19 MG/DL (7-18); BUN/CREATININE RATIO 18.1 (5.4-32.0); CHLORIDE 103 MMOL/L (99-107); CREATININE 1.05 MG/DL (0.60-1.10); GLUCOSE 103 MG/DL (70-104); POTASSIUM 3.7 MMOL/L (3.5-5.1); SODIUM 139 MMOL/L (135-145); TOTAL CARBON DIOXIDE 27.7 MMOL/L (24-32); TOTAL PROTEIN 6.6 G/DL (6.4-8.2); eGFR 68 ML/MIN
[2017-06-06] MEDS: lisinopril 10 MG tablet PO SCH (08:00)
[2017-06-06] MEDS: lactobacillus rhamnosus 10,000 MMU CELLS/CAPSULE PO SCH (09:16)
[2017-06-06] MEDS: linezolid 600mg tablet PO SCH (09:16)
[2017-06-06] MEDS: insulin glargine (Lantus) pen - multi-dose SQ SCH (09:17)
[2017-06-06] MEDS: HYDROmorphone 2mg tablet PO PRN (09:22)
[2017-06-06 09:25] VITALS: BP 106/70
[2017-06-06 13:06] VITALS: BP 134/84
[2017-06-06 15:35] LABS: TROPONIN I < 0.04 NG/ML (0.0-0.05)
[2017-06-11] MEDS ORDERED: GLIM1TAB46 PO (11:27)
== END 2017-06-06 15:05 | disposition home or self-care (01) | DRG 871 ==
LOC: ER 19:16 → ED HOLD 21:22 → EDBEDREQ 06-04 13:33 → MED 3N 06-04 14:08
PROVIDERS: ADMIT Internal Medicine; ATTEND Family Medicine
DX: A41.9 Sepsis, unspecified organism (principal); G93.41 Metabolic encephalopathy; E11.42 Type 2 diabetes mellitus with diabetic polyneuropathy; E11.621 Type 2 diabetes mellitus with foot ulcer; L03.116 Cellulitis of left lower limb; L97.529 Non-pressure chronic ulcer of other part of left foot with unspecified severity; I10 Essential (primary) hypertension; B19.20 Unspecified viral hepatitis C without hepatic coma; Z79.899 Other long term (current) drug therapy; Z85.72 Personal history of non-Hodgkin lymphomas; Z86.14 Personal history of Methicillin resistant Staphylococcus aureus infection; Z28.21 Immunization not carried out because of patient refusal
CPT/HCPCS: 36415; 71045; 73700; 73721; 80053; 81003; 82948; 83605; 83735; 84145; 84439; 84443; 84484; 85025; 85610; 85730; 87040; 87070; 87502; 87503; 93005; 93306; 93880; 96360; 99285; A6223; A6446; A6449; J0696; J1644; J1815; J2270; J2405; J3370; J7030

== ENCOUNTER 2017-06-10 10:34 | Outpatient (CLI) | payer MEDICARE, MEDICAID ==
[~2017-06-10 10:34] MED LIST changes: +DOCU50LI12; +LANTUS SQ; -LONG ACTING INSULIN SQ; -RIFA300C4 PO; -SULF-14 PO
[2017-06-11] MEDS ORDERED: GLIM1TAB46 PO (11:27)
== END 2017-06-10 11:32 | disposition home or self-care (01) ==
LOC: WOUND CARE 10:34
PROVIDERS: ATTEND Surgery
DX: T81.89XD Other complications of procedures, not elsewhere classified, subsequent encounter (principal); E11.622 Type 2 diabetes mellitus with other skin ulcer; L97.321 Non-pressure chronic ulcer of left ankle limited to breakdown of skin; E11.42 Type 2 diabetes mellitus with diabetic polyneuropathy; I10 Essential (primary) hypertension; M00.9 Pyogenic arthritis, unspecified; Z85.89 Personal history of malignant neoplasm of other organs and systems; Z79.82 Long term (current) use of aspirin; Z79.4 Long term (current) use of insulin; Z79.899 Other long term (current) drug therapy; Z96.653 Presence of artificial knee joint, bilateral; Y83.8 Other surgical procedures as the cause of abnormal reaction of the patient, or of later complication, without mention of misadventure at the time of the procedure
CPT/HCPCS: 36416; 82948; 99211; A6021; A6223

== ENCOUNTER 2017-06-17 09:53 | Day surgery (SDC) | payer MEDICARE, MEDICAID ==
[~2017-06-17 09:53] MED LIST changes: +GLIM1TAB46 PO
[2017-06-17] MEDS ORDERED: LIDOcaine 2% 5ml jelly ONE (11:15)
== END 2017-06-17 12:27 | disposition home or self-care (01) ==
LOC: WOUND CARE 09:53
PROVIDERS: ATTEND Surgery
DX: T81.89XD Other complications of procedures, not elsewhere classified, subsequent encounter (principal); E11.622 Type 2 diabetes mellitus with other skin ulcer; L97.321 Non-pressure chronic ulcer of left ankle limited to breakdown of skin; E11.42 Type 2 diabetes mellitus with diabetic polyneuropathy; I10 Essential (primary) hypertension; M00.9 Pyogenic arthritis, unspecified; Z85.89 Personal history of malignant neoplasm of other organs and systems; Z79.82 Long term (current) use of aspirin; Z79.4 Long term (current) use of insulin; Z79.899 Other long term (current) drug therapy; Z96.653 Presence of artificial knee joint, bilateral; Y83.8 Other surgical procedures as the cause of abnormal reaction of the patient, or of later complication, without mention of misadventure at the time of the procedure
CPT/HCPCS: 11042; 36416; 82948; A6021; A6222

== ENCOUNTER 2017-06-21 10:00 | Outpatient (CLI) | payer MEDICARE, MEDICAID ==
[2017-06-21] MEDS ORDERED: LIDOcaine 2% 5ml jelly ONE (10:31)
== END 2017-06-21 12:08 | disposition home or self-care (01) ==
LOC: WOUND CARE 10:00 → EDSTATUS 10:00 → WOUND CARE 12:08
PROVIDERS: ATTEND Surgery
DX: T81.89XD Other complications of procedures, not elsewhere classified, subsequent encounter (principal); E11.622 Type 2 diabetes mellitus with other skin ulcer; L97.321 Non-pressure chronic ulcer of left ankle limited to breakdown of skin; E11.621 Type 2 diabetes mellitus with foot ulcer; L97.521 Non-pressure chronic ulcer of other part of left foot limited to breakdown of skin; E11.42 Type 2 diabetes mellitus with diabetic polyneuropathy; I10 Essential (primary) hypertension; M00.9 Pyogenic arthritis, unspecified; Z85.89 Personal history of malignant neoplasm of other organs and systems; Z79.82 Long term (current) use of aspirin; Z79.4 Long term (current) use of insulin; Z79.899 Other long term (current) drug therapy; Z96.653 Presence of artificial knee joint, bilateral; Y83.8 Other surgical procedures as the cause of abnormal reaction of the patient, or of later complication, without mention of misadventure at the time of the procedure
CPT/HCPCS: 36416; 82948; 97597; A6021; A6212; A6223

== ENCOUNTER 2017-07-05 09:35 | Day surgery (SDC) | payer MEDICARE, MEDICAID ==
[2017-07-05] MEDS ORDERED: LIDOcaine 2% 5ml jelly ONE (10:27)
[2017-07-05] MEDS ORDERED: INSU100I31 (12:00)
== END 2017-07-05 11:08 | disposition home or self-care (01) ==
LOC: WOUND CARE 09:35
PROVIDERS: ATTEND Surgery
DX: T81.89XD Other complications of procedures, not elsewhere classified, subsequent encounter (principal); E11.622 Type 2 diabetes mellitus with other skin ulcer; L97.321 Non-pressure chronic ulcer of left ankle limited to breakdown of skin; E11.621 Type 2 diabetes mellitus with foot ulcer; L97.521 Non-pressure chronic ulcer of other part of left foot limited to breakdown of skin; E11.42 Type 2 diabetes mellitus with diabetic polyneuropathy; I10 Essential (primary) hypertension; M00.9 Pyogenic arthritis, unspecified; Z85.89 Personal history of malignant neoplasm of other organs and systems; Z79.82 Long term (current) use of aspirin; Z79.4 Long term (current) use of insulin; Z79.899 Other long term (current) drug therapy; Z96.653 Presence of artificial knee joint, bilateral; Y83.8 Other surgical procedures as the cause of abnormal reaction of the patient, or of later complication, without mention of misadventure at the time of the procedure
CPT/HCPCS: 36416; 82948; 97597; A6021; A6212; A6223

== ENCOUNTER 2017-07-11 09:18 | Day surgery (SDC) | payer MEDICARE, MEDICAID ==
[~2017-07-11 09:18] MED LIST changes: +INSU100I31; -LANTUS SQ
[2017-07-11] MEDS ORDERED: LIDOcaine 2% 5ml jelly ONE (10:09)
== END 2017-07-11 11:14 | disposition home or self-care (01) ==
LOC: WOUND CARE 09:18
PROVIDERS: ATTEND Surgery
DX: T81.89XD Other complications of procedures, not elsewhere classified, subsequent encounter (principal); E11.622 Type 2 diabetes mellitus with other skin ulcer; L97.321 Non-pressure chronic ulcer of left ankle limited to breakdown of skin; E11.621 Type 2 diabetes mellitus with foot ulcer; L97.521 Non-pressure chronic ulcer of other part of left foot limited to breakdown of skin; E11.42 Type 2 diabetes mellitus with diabetic polyneuropathy; I10 Essential (primary) hypertension; M00.9 Pyogenic arthritis, unspecified; Z85.89 Personal history of malignant neoplasm of other organs and systems; Z79.82 Long term (current) use of aspirin; Z79.4 Long term (current) use of insulin; Z79.899 Other long term (current) drug therapy; Z96.653 Presence of artificial knee joint, bilateral; Y83.8 Other surgical procedures as the cause of abnormal reaction of the patient, or of later complication, without mention of misadventure at the time of the procedure
CPT/HCPCS: 10061; 36416; 82948; 87070; 87075; 87077; 87102; 87176; 87186; A6266

== ENCOUNTER 2017-07-15 09:25 | Outpatient (CLI) | payer MEDICARE, MEDICAID ==
[2017-07-15] MEDS ORDERED: RIFA300C4 (15:17)
== END 2017-07-15 11:07 | disposition home or self-care (01) ==
LOC: WOUND CARE 09:25 → EDSTATUS 11:30
PROVIDERS: ATTEND Surgery
DX: T81.89XD Other complications of procedures, not elsewhere classified, subsequent encounter (principal); E11.622 Type 2 diabetes mellitus with other skin ulcer; L97.321 Non-pressure chronic ulcer of left ankle limited to breakdown of skin; E11.42 Type 2 diabetes mellitus with diabetic polyneuropathy; E11.65 Type 2 diabetes mellitus with hyperglycemia; I10 Essential (primary) hypertension; M00.9 Pyogenic arthritis, unspecified; Z85.89 Personal history of malignant neoplasm of other organs and systems; Z79.82 Long term (current) use of aspirin; Z79.4 Long term (current) use of insulin; Z79.899 Other long term (current) drug therapy; Z96.653 Presence of artificial knee joint, bilateral; Y83.8 Other surgical procedures as the cause of abnormal reaction of the patient, or of later complication, without mention of misadventure at the time of the procedure
CPT/HCPCS: 36416; 82948; 99211; A6266

== ENCOUNTER 2017-07-19 09:25 | Day surgery (SDC) | payer MEDICARE, MEDICAID ==
[~2017-07-19 09:25] MED LIST changes: +RIFA300C4
[2017-07-19] MEDS ORDERED: LIDOcaine 2% 5ml jelly ONE (09:57)
== END 2017-07-19 11:11 | disposition home or self-care (01) ==
LOC: WOUND CARE 09:25
PROVIDERS: ATTEND Surgery
DX: T81.89XD Other complications of procedures, not elsewhere classified, subsequent encounter (principal); E11.622 Type 2 diabetes mellitus with other skin ulcer; L97.322 Non-pressure chronic ulcer of left ankle with fat layer exposed; E11.42 Type 2 diabetes mellitus with diabetic polyneuropathy; E11.65 Type 2 diabetes mellitus with hyperglycemia; I10 Essential (primary) hypertension; M00.9 Pyogenic arthritis, unspecified; Z85.89 Personal history of malignant neoplasm of other organs and systems; Z79.82 Long term (current) use of aspirin; Z79.4 Long term (current) use of insulin; Z79.899 Other long term (current) drug therapy; Z96.653 Presence of artificial knee joint, bilateral; Y83.8 Other surgical procedures as the cause of abnormal reaction of the patient, or of later complication, without mention of misadventure at the time of the procedure
CPT/HCPCS: 11042; 36416; 82948; A6209; A6266; A6446

== ENCOUNTER 2017-07-22 09:18 | Day surgery (SDC) | payer MEDICARE, MEDICAID ==
[2017-07-22] MEDS ORDERED: LIDOcaine 2% 5ml jelly ONE (09:38)
== END 2017-07-22 11:05 | disposition home or self-care (01) ==
LOC: WOUND CARE 09:18
PROVIDERS: ATTEND Surgery
DX: T81.89XD Other complications of procedures, not elsewhere classified, subsequent encounter (principal); E11.622 Type 2 diabetes mellitus with other skin ulcer; L97.322 Non-pressure chronic ulcer of left ankle with fat layer exposed; E11.42 Type 2 diabetes mellitus with diabetic polyneuropathy; E11.65 Type 2 diabetes mellitus with hyperglycemia; I10 Essential (primary) hypertension; M00.9 Pyogenic arthritis, unspecified; Z85.89 Personal history of malignant neoplasm of other organs and systems; Z79.82 Long term (current) use of aspirin; Z79.4 Long term (current) use of insulin; Z79.899 Other long term (current) drug therapy; Z96.653 Presence of artificial knee joint, bilateral; Y83.8 Other surgical procedures as the cause of abnormal reaction of the patient, or of later complication, without mention of misadventure at the time of the procedure
CPT/HCPCS: 11042; 36416; 82948; A6266; A6446

== ENCOUNTER 2017-07-26 08:56 | Outpatient (CLI) | payer MEDICARE, MEDICAID | END 2017-07-26 10:08 | disposition home or self-care (01) | LOC: WOUND CARE 08:56 → EDSTATUS 09:30 → WOUND CARE 10:08 | PROVIDERS: ATTEND Surgery | DX: T81.89XD Other complications of procedures, not elsewhere classified, subsequent encounter (principal); E11.622 Type 2 diabetes mellitus with other skin ulcer; L97.322 Non-pressure chronic ulcer of left ankle with fat layer exposed; E11.42 Type 2 diabetes mellitus with diabetic polyneuropathy; E11.65 Type 2 diabetes mellitus with hyperglycemia; I10 Essential (primary) hypertension; M00.9 Pyogenic arthritis, unspecified; Z85.89 Personal history of malignant neoplasm of other organs and systems; Z79.82 Long term (current) use of aspirin; Z79.4 Long term (current) use of insulin; Z79.899 Other long term (current) drug therapy; Z96.653 Presence of artificial knee joint, bilateral; Y83.8 Other surgical procedures as the cause of abnormal reaction of the patient, or of later complication, without mention of misadventure at the time of the procedure | CPT/HCPCS: 36416; 82948; 99211; A6266; A6446 ==

== ENCOUNTER 2017-08-06 09:24 | Outpatient (CLI) | payer MEDICARE, MEDICAID ==
[~2017-08-06 09:24] MED LIST changes: -LINE600T36 PO
== END 2017-08-06 11:20 | disposition home or self-care (01) ==
LOC: WOUND CARE 09:24 → EDSTATUS 09:30 → WOUND CARE 11:20
PROVIDERS: ATTEND Surgery
DX: T81.89XD Other complications of procedures, not elsewhere classified, subsequent encounter (principal); E11.622 Type 2 diabetes mellitus with other skin ulcer; L97.322 Non-pressure chronic ulcer of left ankle with fat layer exposed; E11.42 Type 2 diabetes mellitus with diabetic polyneuropathy; E11.65 Type 2 diabetes mellitus with hyperglycemia; I10 Essential (primary) hypertension; M00.9 Pyogenic arthritis, unspecified; Z85.89 Personal history of malignant neoplasm of other organs and systems; Z79.82 Long term (current) use of aspirin; Z79.4 Long term (current) use of insulin; Z79.899 Other long term (current) drug therapy; Z96.653 Presence of artificial knee joint, bilateral; Y83.8 Other surgical procedures as the cause of abnormal reaction of the patient, or of later complication, without mention of misadventure at the time of the procedure
CPT/HCPCS: 36416; 82948; 99214

== ENCOUNTER 2017-08-09 09:13 | Day surgery (SDC) | payer MEDICARE, MEDICAID ==
[2017-08-09] MEDS ORDERED: mupirocin 2% ointment 22GM ONE (10:52)
== END 2017-08-09 11:12 | disposition home or self-care (01) ==
LOC: WOUND CARE 09:13
PROVIDERS: ATTEND Surgery
DX: T81.89XD Other complications of procedures, not elsewhere classified, subsequent encounter (principal); E11.622 Type 2 diabetes mellitus with other skin ulcer; L97.322 Non-pressure chronic ulcer of left ankle with fat layer exposed; E11.42 Type 2 diabetes mellitus with diabetic polyneuropathy; E11.65 Type 2 diabetes mellitus with hyperglycemia; I10 Essential (primary) hypertension; M00.9 Pyogenic arthritis, unspecified; Z85.89 Personal history of malignant neoplasm of other organs and systems; Z79.82 Long term (current) use of aspirin; Z79.4 Long term (current) use of insulin; Z79.899 Other long term (current) drug therapy; Z96.653 Presence of artificial knee joint, bilateral; Y83.8 Other surgical procedures as the cause of abnormal reaction of the patient, or of later complication, without mention of misadventure at the time of the procedure
CPT/HCPCS: 36416; 82948; 99215; A6223; A6446

== ENCOUNTER 2017-08-15 12:33 | Outpatient (CLI) | payer MEDICARE, MEDICAID ==
[2017-08-15] MEDS ORDERED: LIDOcaine 2% 5ml jelly ONE (12:53)
== END 2017-08-15 13:39 | disposition home or self-care (01) ==
LOC: WOUND CARE 12:33 → EDSTATUS 13:00 → WOUND CARE 13:39
PROVIDERS: ATTEND Surgery
DX: T81.89XD Other complications of procedures, not elsewhere classified, subsequent encounter (principal); E11.622 Type 2 diabetes mellitus with other skin ulcer; L97.322 Non-pressure chronic ulcer of left ankle with fat layer exposed; E11.42 Type 2 diabetes mellitus with diabetic polyneuropathy; E11.65 Type 2 diabetes mellitus with hyperglycemia; I10 Essential (primary) hypertension; M00.9 Pyogenic arthritis, unspecified; Z85.89 Personal history of malignant neoplasm of other organs and systems; Z79.82 Long term (current) use of aspirin; Z79.4 Long term (current) use of insulin; Z79.899 Other long term (current) drug therapy; Z96.653 Presence of artificial knee joint, bilateral; Y83.8 Other surgical procedures as the cause of abnormal reaction of the patient, or of later complication, without mention of misadventure at the time of the procedure
CPT/HCPCS: 99215; A6206; A6223

== ENCOUNTER 2017-08-22 09:12 | Day surgery (SDC) | payer MEDICARE, MEDICAID ==
[~2017-08-22 09:12] MED LIST changes: -RIFA300C4
[2017-08-22] MEDS ORDERED: LIDOcaine 2% 5ml jelly ONE (09:48)
== END 2017-08-22 11:04 | disposition home or self-care (01) ==
LOC: WOUND CARE 09:12
PROVIDERS: ATTEND Surgery
DX: T81.89XD Other complications of procedures, not elsewhere classified, subsequent encounter (principal); E11.622 Type 2 diabetes mellitus with other skin ulcer; L97.322 Non-pressure chronic ulcer of left ankle with fat layer exposed; E11.42 Type 2 diabetes mellitus with diabetic polyneuropathy; E11.65 Type 2 diabetes mellitus with hyperglycemia; I10 Essential (primary) hypertension; M00.9 Pyogenic arthritis, unspecified; Z85.89 Personal history of malignant neoplasm of other organs and systems; Z79.82 Long term (current) use of aspirin; Z79.4 Long term (current) use of insulin; Z79.899 Other long term (current) drug therapy; Z96.653 Presence of artificial knee joint, bilateral; Y83.8 Other surgical procedures as the cause of abnormal reaction of the patient, or of later complication, without mention of misadventure at the time of the procedure
CPT/HCPCS: 11042; 82948; 87070; 87075; 87077; 87102; A6212; A6266; A6449

== ENCOUNTER 2017-08-26 09:15 | Day surgery (SDC) | payer MEDICARE, MEDICAID | END 2017-08-26 10:57 | disposition home or self-care (01) | LOC: WOUND CARE 09:15 | PROVIDERS: ATTEND Surgery | DX: T81.89XD Other complications of procedures, not elsewhere classified, subsequent encounter (principal); E11.622 Type 2 diabetes mellitus with other skin ulcer; L97.322 Non-pressure chronic ulcer of left ankle with fat layer exposed; E11.42 Type 2 diabetes mellitus with diabetic polyneuropathy; E11.65 Type 2 diabetes mellitus with hyperglycemia; I10 Essential (primary) hypertension; M00.9 Pyogenic arthritis, unspecified; Z85.89 Personal history of malignant neoplasm of other organs and systems; Z79.82 Long term (current) use of aspirin; Z79.4 Long term (current) use of insulin; Z79.899 Other long term (current) drug therapy; Z96.653 Presence of artificial knee joint, bilateral; Y83.8 Other surgical procedures as the cause of abnormal reaction of the patient, or of later complication, without mention of misadventure at the time of the procedure | CPT/HCPCS: 97597; A6266 ==

== ENCOUNTER 2017-08-29 09:11 | Outpatient (CLI) | payer MEDICARE, MEDICAID | END 2017-08-29 09:54 | disposition home or self-care (01) | LOC: WOUND CARE 09:11 → EDSTATUS 09:30 → WOUND CARE 09:54 | PROVIDERS: ATTEND Surgery | DX: T81.89XD Other complications of procedures, not elsewhere classified, subsequent encounter (principal); E11.622 Type 2 diabetes mellitus with other skin ulcer; L97.322 Non-pressure chronic ulcer of left ankle with fat layer exposed; E11.42 Type 2 diabetes mellitus with diabetic polyneuropathy; E11.65 Type 2 diabetes mellitus with hyperglycemia; I10 Essential (primary) hypertension; M00.9 Pyogenic arthritis, unspecified; Z85.89 Personal history of malignant neoplasm of other organs and systems; Z79.82 Long term (current) use of aspirin; Z79.4 Long term (current) use of insulin; Z79.899 Other long term (current) drug therapy; Z96.653 Presence of artificial knee joint, bilateral; Y83.8 Other surgical procedures as the cause of abnormal reaction of the patient, or of later complication, without mention of misadventure at the time of the procedure | CPT/HCPCS: 36416; 82948; 99211; A6266; 99214 ==

== ENCOUNTER 2017-09-02 09:05 | Outpatient (CLI) | payer MEDICARE, MEDICAID ==
[2017-09-02] MEDS ORDERED: LIDOcaine 2% 5ml jelly ONE (09:38)
== END 2017-09-02 10:44 | disposition home or self-care (01) ==
LOC: WOUND CARE 09:05 → EDSTATUS 09:30 → WOUND CARE 10:44
PROVIDERS: ATTEND Surgery
DX: T81.89XD Other complications of procedures, not elsewhere classified, subsequent encounter (principal); E11.622 Type 2 diabetes mellitus with other skin ulcer; L97.322 Non-pressure chronic ulcer of left ankle with fat layer exposed; E11.42 Type 2 diabetes mellitus with diabetic polyneuropathy; E11.65 Type 2 diabetes mellitus with hyperglycemia; I10 Essential (primary) hypertension; M00.9 Pyogenic arthritis, unspecified; Z85.89 Personal history of malignant neoplasm of other organs and systems; Z79.82 Long term (current) use of aspirin; Z79.4 Long term (current) use of insulin; Z79.899 Other long term (current) drug therapy; Z96.653 Presence of artificial knee joint, bilateral; Y83.8 Other surgical procedures as the cause of abnormal reaction of the patient, or of later complication, without mention of misadventure at the time of the procedure
CPT/HCPCS: 82948; 99215; A6266

== ENCOUNTER 2017-09-05 09:06 | Day surgery (SDC) | payer MEDICARE, MEDICAID ==
[2017-09-05] MEDS: LIDOcaine 2% 5ml jelly ONE (09:38)
== END 2017-09-05 11:00 | disposition home or self-care (01) ==
LOC: WOUND CARE 09:06
PROVIDERS: ATTEND Surgery
DX: T81.89XD Other complications of procedures, not elsewhere classified, subsequent encounter (principal); E11.622 Type 2 diabetes mellitus with other skin ulcer; L97.322 Non-pressure chronic ulcer of left ankle with fat layer exposed; E11.42 Type 2 diabetes mellitus with diabetic polyneuropathy; E11.65 Type 2 diabetes mellitus with hyperglycemia; I10 Essential (primary) hypertension; M00.9 Pyogenic arthritis, unspecified; Z85.89 Personal history of malignant neoplasm of other organs and systems; Z79.82 Long term (current) use of aspirin; Z79.4 Long term (current) use of insulin; Z79.899 Other long term (current) drug therapy; Z96.653 Presence of artificial knee joint, bilateral; Y83.8 Other surgical procedures as the cause of abnormal reaction of the patient, or of later complication, without mention of misadventure at the time of the procedure
CPT/HCPCS: 11042; 36416; 82948; A6266

== ENCOUNTER 2017-09-09 09:15 | Day surgery (SDC) | payer MEDICARE, MEDICAID ==
[2017-09-09] MEDS ORDERED: LIDOcaine 2% 5ml jelly ONE (09:56)
== END 2017-09-09 12:37 | disposition home or self-care (01) ==
LOC: WOUND CARE 09:15
PROVIDERS: ATTEND Surgery
DX: T81.89XD Other complications of procedures, not elsewhere classified, subsequent encounter (principal); E11.622 Type 2 diabetes mellitus with other skin ulcer; L97.322 Non-pressure chronic ulcer of left ankle with fat layer exposed; E11.42 Type 2 diabetes mellitus with diabetic polyneuropathy; E11.65 Type 2 diabetes mellitus with hyperglycemia; I10 Essential (primary) hypertension; M00.9 Pyogenic arthritis, unspecified; Z85.89 Personal history of malignant neoplasm of other organs and systems; Z79.82 Long term (current) use of aspirin; Z79.4 Long term (current) use of insulin; Z79.899 Other long term (current) drug therapy; Z96.653 Presence of artificial knee joint, bilateral; Y83.8 Other surgical procedures as the cause of abnormal reaction of the patient, or of later complication, without mention of misadventure at the time of the procedure
CPT/HCPCS: 11042; 97605; A6243; A6449

== ENCOUNTER 2017-09-12 09:11 | Day surgery (SDC) | payer MEDICARE, MEDICAID ==
[2017-09-12] MEDS ORDERED: LIDOcaine 2% 5ml jelly ONE (09:40)
== END 2017-09-12 10:46 | disposition home or self-care (01) ==
LOC: WOUND CARE 09:11
PROVIDERS: ATTEND Surgery
DX: T81.89XD Other complications of procedures, not elsewhere classified, subsequent encounter (principal); E11.622 Type 2 diabetes mellitus with other skin ulcer; L97.322 Non-pressure chronic ulcer of left ankle with fat layer exposed; E11.42 Type 2 diabetes mellitus with diabetic polyneuropathy; E11.65 Type 2 diabetes mellitus with hyperglycemia; I10 Essential (primary) hypertension; M00.9 Pyogenic arthritis, unspecified; Z85.89 Personal history of malignant neoplasm of other organs and systems; Z79.82 Long term (current) use of aspirin; Z79.4 Long term (current) use of insulin; Z79.899 Other long term (current) drug therapy; Z96.653 Presence of artificial knee joint, bilateral; Y83.8 Other surgical procedures as the cause of abnormal reaction of the patient, or of later complication, without mention of misadventure at the time of the procedure
CPT/HCPCS: 36416; 82948; 97597

== ENCOUNTER 2017-09-16 09:20 | Day surgery (SDC) | payer MEDICARE, MEDICAID ==
[2017-09-16] MEDS ORDERED: LIDOcaine 2% 5ml jelly ONE (10:00)
== END 2017-09-16 10:58 | disposition home or self-care (01) ==
LOC: WOUND CARE 09:20
PROVIDERS: ATTEND Surgery
DX: T81.89XD Other complications of procedures, not elsewhere classified, subsequent encounter (principal); E11.622 Type 2 diabetes mellitus with other skin ulcer; L97.322 Non-pressure chronic ulcer of left ankle with fat layer exposed; E11.42 Type 2 diabetes mellitus with diabetic polyneuropathy; E11.65 Type 2 diabetes mellitus with hyperglycemia; I10 Essential (primary) hypertension; Z79.82 Long term (current) use of aspirin; Z79.4 Long term (current) use of insulin; Z79.899 Other long term (current) drug therapy; Z96.653 Presence of artificial knee joint, bilateral; Y83.8 Other surgical procedures as the cause of abnormal reaction of the patient, or of later complication, without mention of misadventure at the time of the procedure
CPT/HCPCS: 36416; 82948; 97605

== ENCOUNTER 2017-09-19 09:18 | Day surgery (SDC) | payer MEDICARE, MEDICAID ==
[2017-09-19] MEDS ORDERED: LIDOcaine 2% 5ml jelly ONE (10:05)
== END 2017-09-19 12:06 | disposition home or self-care (01) ==
LOC: WOUND CARE 09:18
PROVIDERS: ATTEND Surgery
DX: T81.89XD Other complications of procedures, not elsewhere classified, subsequent encounter (principal); E11.622 Type 2 diabetes mellitus with other skin ulcer; L97.322 Non-pressure chronic ulcer of left ankle with fat layer exposed; E11.42 Type 2 diabetes mellitus with diabetic polyneuropathy; E11.65 Type 2 diabetes mellitus with hyperglycemia; I10 Essential (primary) hypertension; Z79.82 Long term (current) use of aspirin; Z79.4 Long term (current) use of insulin; Z79.899 Other long term (current) drug therapy; Z96.653 Presence of artificial knee joint, bilateral; Y83.8 Other surgical procedures as the cause of abnormal reaction of the patient, or of later complication, without mention of misadventure at the time of the procedure
CPT/HCPCS: 36416; 82948; 97597

== ENCOUNTER 2017-09-23 09:14 | Day surgery (SDC) | payer MEDICARE, MEDICAID ==
[2017-09-23] MEDS ORDERED: LIDOcaine 2% 5ml jelly ONE (09:47)
[2017-09-23] MEDS ORDERED: hydrocortisone 1% cream 28gm TP ONE (11:29)
== END 2017-09-23 12:03 | disposition home or self-care (01) ==
LOC: WOUND CARE 09:14
PROVIDERS: ATTEND Surgery
DX: T81.89XD Other complications of procedures, not elsewhere classified, subsequent encounter (principal); E11.622 Type 2 diabetes mellitus with other skin ulcer; L97.322 Non-pressure chronic ulcer of left ankle with fat layer exposed; E11.42 Type 2 diabetes mellitus with diabetic polyneuropathy; E11.65 Type 2 diabetes mellitus with hyperglycemia; I10 Essential (primary) hypertension; Z79.82 Long term (current) use of aspirin; Z79.4 Long term (current) use of insulin; Z79.899 Other long term (current) drug therapy; Z96.653 Presence of artificial knee joint, bilateral; Y83.8 Other surgical procedures as the cause of abnormal reaction of the patient, or of later complication, without mention of misadventure at the time of the procedure
CPT/HCPCS: 36416; 82948; 97605

== ENCOUNTER 2017-09-26 09:19 | Outpatient (CLI) | payer MEDICARE, MEDICAID ==
[2017-09-26] MEDS ORDERED: hydrocortisone 1% cream 28gm TP ONE (10:45)
== END 2017-09-26 10:27 | disposition home or self-care (01) ==
LOC: WOUND CARE 09:19 → EDSTATUS 09:30 → WOUND CARE 10:27
PROVIDERS: ATTEND Surgery
DX: T81.89XD Other complications of procedures, not elsewhere classified, subsequent encounter (principal); E11.622 Type 2 diabetes mellitus with other skin ulcer; L97.322 Non-pressure chronic ulcer of left ankle with fat layer exposed; E11.42 Type 2 diabetes mellitus with diabetic polyneuropathy; E11.65 Type 2 diabetes mellitus with hyperglycemia; I10 Essential (primary) hypertension; Z79.82 Long term (current) use of aspirin; Z79.4 Long term (current) use of insulin; Z79.899 Other long term (current) drug therapy; Z96.653 Presence of artificial knee joint, bilateral; Y83.8 Other surgical procedures as the cause of abnormal reaction of the patient, or of later complication, without mention of misadventure at the time of the procedure
CPT/HCPCS: 36416; 82948; 99211; A6021; A6206

== ENCOUNTER 2017-10-03 09:14 | Day surgery (SDC) | payer MEDICARE, MEDICAID ==
[2017-10-03] MEDS ORDERED: LIDOcaine 2% 5ml jelly ONE (09:21)
== END 2017-10-03 11:16 | disposition home or self-care (01) ==
LOC: WOUND CARE 09:14
PROVIDERS: ATTEND Surgery
DX: T81.89XD Other complications of procedures, not elsewhere classified, subsequent encounter (principal); E11.622 Type 2 diabetes mellitus with other skin ulcer; L97.322 Non-pressure chronic ulcer of left ankle with fat layer exposed; E11.42 Type 2 diabetes mellitus with diabetic polyneuropathy; E11.65 Type 2 diabetes mellitus with hyperglycemia; I10 Essential (primary) hypertension; M00.9 Pyogenic arthritis, unspecified; Z79.82 Long term (current) use of aspirin; Z79.4 Long term (current) use of insulin; Z79.899 Other long term (current) drug therapy; Z96.653 Presence of artificial knee joint, bilateral; Z85.89 Personal history of malignant neoplasm of other organs and systems; Y83.8 Other surgical procedures as the cause of abnormal reaction of the patient, or of later complication, without mention of misadventure at the time of the procedure
CPT/HCPCS: 36416; 82948; 97605

== ENCOUNTER 2017-10-07 09:21 | Day surgery (SDC) | payer MEDICARE, MEDICAID ==
[2017-10-07] MEDS ORDERED: LIDOcaine 2% 5ml jelly ONE (11:43)
== END 2017-10-07 12:14 | disposition home or self-care (01) ==
LOC: WOUND CARE 09:21
PROVIDERS: ATTEND Surgery
DX: T81.89XD Other complications of procedures, not elsewhere classified, subsequent encounter (principal); E11.622 Type 2 diabetes mellitus with other skin ulcer; L97.322 Non-pressure chronic ulcer of left ankle with fat layer exposed; E11.42 Type 2 diabetes mellitus with diabetic polyneuropathy; E11.65 Type 2 diabetes mellitus with hyperglycemia; I10 Essential (primary) hypertension; M00.9 Pyogenic arthritis, unspecified; Z79.82 Long term (current) use of aspirin; Z79.4 Long term (current) use of insulin; Z79.899 Other long term (current) drug therapy; Z96.653 Presence of artificial knee joint, bilateral; Z85.89 Personal history of malignant neoplasm of other organs and systems; Y83.8 Other surgical procedures as the cause of abnormal reaction of the patient, or of later complication, without mention of misadventure at the time of the procedure
CPT/HCPCS: 11042; 36416; 82948; A6021; A6206; A6209; A6446

== ENCOUNTER 2017-10-15 08:01 | Day surgery (SDC) | payer MEDICARE, MEDICAID ==
[2017-10-15] MEDS ORDERED: LIDOcaine 2% 5ml jelly ONE (09:47)
== END 2017-10-15 10:59 | disposition home or self-care (01) ==
LOC: WOUND CARE 08:01
PROVIDERS: ATTEND Surgery
DX: T81.89XD Other complications of procedures, not elsewhere classified, subsequent encounter (principal); E11.622 Type 2 diabetes mellitus with other skin ulcer; L97.322 Non-pressure chronic ulcer of left ankle with fat layer exposed; E11.42 Type 2 diabetes mellitus with diabetic polyneuropathy; E11.65 Type 2 diabetes mellitus with hyperglycemia; I10 Essential (primary) hypertension; M00.9 Pyogenic arthritis, unspecified; Z79.82 Long term (current) use of aspirin; Z79.4 Long term (current) use of insulin; Z79.899 Other long term (current) drug therapy; Z96.653 Presence of artificial knee joint, bilateral; Z85.89 Personal history of malignant neoplasm of other organs and systems; Y83.8 Other surgical procedures as the cause of abnormal reaction of the patient, or of later complication, without mention of misadventure at the time of the procedure
CPT/HCPCS: 15271; 36416; 82948; A6021; A6209; A6222; Q4131; A6250

== ENCOUNTER 2017-10-22 08:04 | Day surgery (SDC) | payer MEDICARE, MEDICAID ==
[2017-10-22] MEDS ORDERED: LIDOcaine 2% 5ml jelly ONE (10:23)
== END 2017-10-22 10:56 | disposition home or self-care (01) ==
LOC: WOUND CARE 08:04
PROVIDERS: ATTEND Surgery
DX: T81.89XD Other complications of procedures, not elsewhere classified, subsequent encounter (principal); E11.622 Type 2 diabetes mellitus with other skin ulcer; L97.322 Non-pressure chronic ulcer of left ankle with fat layer exposed; E11.42 Type 2 diabetes mellitus with diabetic polyneuropathy; E11.65 Type 2 diabetes mellitus with hyperglycemia; I10 Essential (primary) hypertension; M00.9 Pyogenic arthritis, unspecified; Z79.82 Long term (current) use of aspirin; Z79.4 Long term (current) use of insulin; Z79.899 Other long term (current) drug therapy; Z96.653 Presence of artificial knee joint, bilateral; Z85.89 Personal history of malignant neoplasm of other organs and systems; Y83.8 Other surgical procedures as the cause of abnormal reaction of the patient, or of later complication, without mention of misadventure at the time of the procedure
CPT/HCPCS: 36416; 82948; 97597; A6021; A6206; A6209

== ENCOUNTER 2017-10-28 08:43 | Outpatient (CLI) | payer MEDICARE, MEDICAID | END 2017-10-28 09:59 | disposition home or self-care (01) | LOC: WOUND CARE 08:43 → EDSTATUS 09:00 → WOUND CARE 09:59 | PROVIDERS: ATTEND Surgery | DX: T81.89XD Other complications of procedures, not elsewhere classified, subsequent encounter (principal); E11.622 Type 2 diabetes mellitus with other skin ulcer; L97.322 Non-pressure chronic ulcer of left ankle with fat layer exposed; E11.42 Type 2 diabetes mellitus with diabetic polyneuropathy; E11.65 Type 2 diabetes mellitus with hyperglycemia; I10 Essential (primary) hypertension; M00.9 Pyogenic arthritis, unspecified; Z79.82 Long term (current) use of aspirin; Z79.4 Long term (current) use of insulin; Z79.899 Other long term (current) drug therapy; Z96.653 Presence of artificial knee joint, bilateral; Z85.89 Personal history of malignant neoplasm of other organs and systems; Y83.8 Other surgical procedures as the cause of abnormal reaction of the patient, or of later complication, without mention of misadventure at the time of the procedure | CPT/HCPCS: 36416; 82948; 99211; A6021; A6206; A6209; A6446 ==

== ENCOUNTER 2017-11-01 08:35 | Day surgery (SDC) | payer MEDICARE, MEDICAID ==
[2017-11-01] MEDS ORDERED: LIDOcaine 2% 5ml jelly ONE (09:58)
== END 2017-11-01 11:36 | disposition home or self-care (01) ==
LOC: WOUND CARE 08:35
PROVIDERS: ATTEND Surgery
DX: T81.89XD Other complications of procedures, not elsewhere classified, subsequent encounter (principal); E11.622 Type 2 diabetes mellitus with other skin ulcer; L97.322 Non-pressure chronic ulcer of left ankle with fat layer exposed; E11.42 Type 2 diabetes mellitus with diabetic polyneuropathy; E11.65 Type 2 diabetes mellitus with hyperglycemia; I10 Essential (primary) hypertension; M00.9 Pyogenic arthritis, unspecified; Z79.82 Long term (current) use of aspirin; Z79.4 Long term (current) use of insulin; Z79.899 Other long term (current) drug therapy; Z96.653 Presence of artificial knee joint, bilateral; Z85.89 Personal history of malignant neoplasm of other organs and systems; Y83.8 Other surgical procedures as the cause of abnormal reaction of the patient, or of later complication, without mention of misadventure at the time of the procedure
CPT/HCPCS: 15271; 36416; 82948; A6209; Q4131; A6250

== ENCOUNTER 2017-11-07 10:18 | Outpatient (CLI) | payer MEDICARE, MEDICAID ==
[2017-11-07] MEDS ORDERED: LIDOcaine 2% 5ml jelly ONE (10:35)
== END 2017-11-07 10:20 | disposition home or self-care (01) ==
LOC: WOUND CARE 10:18
PROVIDERS: ATTEND Surgery
DX: T81.89XD Other complications of procedures, not elsewhere classified, subsequent encounter (principal); E11.622 Type 2 diabetes mellitus with other skin ulcer; L97.322 Non-pressure chronic ulcer of left ankle with fat layer exposed; E11.42 Type 2 diabetes mellitus with diabetic polyneuropathy; E11.65 Type 2 diabetes mellitus with hyperglycemia; I10 Essential (primary) hypertension; M00.9 Pyogenic arthritis, unspecified; Z79.82 Long term (current) use of aspirin; Z79.4 Long term (current) use of insulin; Z79.899 Other long term (current) drug therapy; Z96.653 Presence of artificial knee joint, bilateral; Z85.89 Personal history of malignant neoplasm of other organs and systems; Y83.8 Other surgical procedures as the cause of abnormal reaction of the patient, or of later complication, without mention of misadventure at the time of the procedure
CPT/HCPCS: 36416; 82948; 99214; A6206; A6209; A6446

== ENCOUNTER 2017-11-13 09:00 | Day surgery (SDC) | payer MEDICARE, MEDICAID ==
[2017-11-13] MEDS ORDERED: LIDOcaine 2% 5ml jelly ONE (09:03)
== END 2017-11-13 11:00 | disposition home or self-care (01) ==
LOC: WOUND CARE 09:00
PROVIDERS: ATTEND Surgery
DX: T81.89XD Other complications of procedures, not elsewhere classified, subsequent encounter (principal); E11.622 Type 2 diabetes mellitus with other skin ulcer; L97.322 Non-pressure chronic ulcer of left ankle with fat layer exposed; E11.42 Type 2 diabetes mellitus with diabetic polyneuropathy; E11.65 Type 2 diabetes mellitus with hyperglycemia; I10 Essential (primary) hypertension; M00.9 Pyogenic arthritis, unspecified; Z79.82 Long term (current) use of aspirin; Z79.4 Long term (current) use of insulin; Z79.899 Other long term (current) drug therapy; Z96.653 Presence of artificial knee joint, bilateral; Z85.89 Personal history of malignant neoplasm of other organs and systems; Y83.8 Other surgical procedures as the cause of abnormal reaction of the patient, or of later complication, without mention of misadventure at the time of the procedure
CPT/HCPCS: 36416; 82948; 97597; A6021; A6206; A6209

== ENCOUNTER 2017-11-19 09:00 | Day surgery (SDC) | payer MEDICARE, MEDICAID ==
[2017-11-19] MEDS ORDERED: LIDOcaine/PRILOcaine 5gm cream TP ONE (09:43)
== END 2017-11-19 11:33 | disposition home or self-care (01) ==
LOC: WOUND CARE 09:00
PROVIDERS: ATTEND Surgery
DX: T81.89XD Other complications of procedures, not elsewhere classified, subsequent encounter (principal); E11.622 Type 2 diabetes mellitus with other skin ulcer; L97.322 Non-pressure chronic ulcer of left ankle with fat layer exposed; E11.42 Type 2 diabetes mellitus with diabetic polyneuropathy; E11.65 Type 2 diabetes mellitus with hyperglycemia; I10 Essential (primary) hypertension; M00.9 Pyogenic arthritis, unspecified; Z79.82 Long term (current) use of aspirin; Z79.4 Long term (current) use of insulin; Z79.899 Other long term (current) drug therapy; Z96.653 Presence of artificial knee joint, bilateral; Z85.89 Personal history of malignant neoplasm of other organs and systems; Y83.8 Other surgical procedures as the cause of abnormal reaction of the patient, or of later complication, without mention of misadventure at the time of the procedure
CPT/HCPCS: 15271; 36416; 73630; 82948; A6209; A6222; A6446; Q4131; A6250

== ENCOUNTER 2017-12-04 09:04 | Day surgery (SDC) | payer MEDICARE, MEDICAID ==
[2017-12-04] MEDS ORDERED: LIDOcaine/PRILOcaine 5gm cream TP ONE (09:40)
[2017-12-04] MEDS ORDERED: hydrocortisone 1% cream 28gm TP ONE (10:44)
== END 2017-12-04 11:00 | disposition home or self-care (01) ==
LOC: WOUND CARE 09:04
PROVIDERS: ATTEND Surgery
DX: T81.89XD Other complications of procedures, not elsewhere classified, subsequent encounter (principal); E11.622 Type 2 diabetes mellitus with other skin ulcer; L97.322 Non-pressure chronic ulcer of left ankle with fat layer exposed; E11.42 Type 2 diabetes mellitus with diabetic polyneuropathy; E11.65 Type 2 diabetes mellitus with hyperglycemia; I10 Essential (primary) hypertension; M00.9 Pyogenic arthritis, unspecified; Z79.82 Long term (current) use of aspirin; Z79.4 Long term (current) use of insulin; Z79.899 Other long term (current) drug therapy; Z96.653 Presence of artificial knee joint, bilateral; Z85.89 Personal history of malignant neoplasm of other organs and systems; Y83.8 Other surgical procedures as the cause of abnormal reaction of the patient, or of later complication, without mention of misadventure at the time of the procedure
CPT/HCPCS: 15271; 36416; 82948; A6209; A6446; Q4131; A6250

== ENCOUNTER 2017-12-12 09:03 | Outpatient (CLI) | payer MEDICARE, MEDICAID ==
[2017-12-12] MEDS ORDERED: LIDOcaine/PRILOcaine 5gm cream TP ONE (11:04)
== END 2017-12-12 12:21 | disposition home or self-care (01) ==
LOC: WOUND CARE 09:03
PROVIDERS: ATTEND Surgery
DX: T81.89XD Other complications of procedures, not elsewhere classified, subsequent encounter (principal); E11.622 Type 2 diabetes mellitus with other skin ulcer; L97.322 Non-pressure chronic ulcer of left ankle with fat layer exposed; E11.42 Type 2 diabetes mellitus with diabetic polyneuropathy; E11.65 Type 2 diabetes mellitus with hyperglycemia; I10 Essential (primary) hypertension; M00.9 Pyogenic arthritis, unspecified; Z79.82 Long term (current) use of aspirin; Z79.4 Long term (current) use of insulin; Z79.899 Other long term (current) drug therapy; Z96.653 Presence of artificial knee joint, bilateral; Z85.89 Personal history of malignant neoplasm of other organs and systems; Y83.8 Other surgical procedures as the cause of abnormal reaction of the patient, or of later complication, without mention of misadventure at the time of the procedure
CPT/HCPCS: 36416; 82948; 93922; 99215; A6021; A6206; A6209; A6446

== ENCOUNTER 2017-12-19 09:02 | Day surgery (SDC) | payer MEDICARE, MEDICAID | END 2017-12-19 11:49 | disposition home or self-care (01) | LOC: WOUND CARE 09:02 | PROVIDERS: ATTEND Surgery | DX: T81.89XD Other complications of procedures, not elsewhere classified, subsequent encounter (principal); E11.622 Type 2 diabetes mellitus with other skin ulcer; L97.322 Non-pressure chronic ulcer of left ankle with fat layer exposed; E11.42 Type 2 diabetes mellitus with diabetic polyneuropathy; E11.65 Type 2 diabetes mellitus with hyperglycemia; I10 Essential (primary) hypertension; M00.9 Pyogenic arthritis, unspecified; Z79.82 Long term (current) use of aspirin; Z79.4 Long term (current) use of insulin; Z79.899 Other long term (current) drug therapy; Z96.653 Presence of artificial knee joint, bilateral; Z85.89 Personal history of malignant neoplasm of other organs and systems; Y83.8 Other surgical procedures as the cause of abnormal reaction of the patient, or of later complication, without mention of misadventure at the time of the procedure | CPT/HCPCS: 15271; 36416; 82948; A6209; A6222; A6446; Q4131; A6250 ==

== ENCOUNTER 2017-12-24 08:59 | Outpatient (CLI) | payer MEDICARE, MEDICAID | END 2017-12-24 10:37 | disposition home or self-care (01) | LOC: WOUND CARE 08:59 → EDSTATUS 09:30 → WOUND CARE 10:37 | PROVIDERS: ATTEND Surgery | DX: T81.89XD Other complications of procedures, not elsewhere classified, subsequent encounter (principal); E11.622 Type 2 diabetes mellitus with other skin ulcer; L97.322 Non-pressure chronic ulcer of left ankle with fat layer exposed; E11.42 Type 2 diabetes mellitus with diabetic polyneuropathy; E11.65 Type 2 diabetes mellitus with hyperglycemia; I10 Essential (primary) hypertension; M00.9 Pyogenic arthritis, unspecified; Z79.82 Long term (current) use of aspirin; Z79.4 Long term (current) use of insulin; Z79.899 Other long term (current) drug therapy; Z96.653 Presence of artificial knee joint, bilateral; Z85.89 Personal history of malignant neoplasm of other organs and systems; Y83.8 Other surgical procedures as the cause of abnormal reaction of the patient, or of later complication, without mention of misadventure at the time of the procedure | CPT/HCPCS: 36416; 82948; 99215; A6222; A6446 ==

== ENCOUNTER 2018-01-17 09:00 | Day surgery (SDC) | payer MEDICARE, MEDICAID ==
[2018-01-17] MEDS ORDERED: LIDOcaine/PRILOcaine 5gm cream TP ONE (09:59)
== END 2018-01-17 11:46 | disposition home or self-care (01) ==
LOC: WOUND CARE 09:00
PROVIDERS: ATTEND Surgery
DX: T81.89XD Other complications of procedures, not elsewhere classified, subsequent encounter (principal); E11.622 Type 2 diabetes mellitus with other skin ulcer; L97.322 Non-pressure chronic ulcer of left ankle with fat layer exposed; E11.42 Type 2 diabetes mellitus with diabetic polyneuropathy; E11.65 Type 2 diabetes mellitus with hyperglycemia; I10 Essential (primary) hypertension; M00.9 Pyogenic arthritis, unspecified; Z79.82 Long term (current) use of aspirin; Z79.4 Long term (current) use of insulin; Z79.899 Other long term (current) drug therapy; Z96.653 Presence of artificial knee joint, bilateral; Z85.89 Personal history of malignant neoplasm of other organs and systems; Y83.8 Other surgical procedures as the cause of abnormal reaction of the patient, or of later complication, without mention of misadventure at the time of the procedure
CPT/HCPCS: 11042; 36416; 82948; A6021; A6206; A6209; A6212; A6446

== ENCOUNTER 2018-01-22 08:40 | Day surgery (SDC) | payer MEDICARE, MEDICAID ==
[2018-01-22] MEDS ORDERED: LIDOcaine/PRILOcaine 5gm cream TP ONE ×2 (09:38→09:40)
== END 2018-01-22 11:29 | disposition home or self-care (01) ==
LOC: WOUND CARE 08:40
PROVIDERS: ATTEND Surgery
DX: T81.89XD Other complications of procedures, not elsewhere classified, subsequent encounter (principal); E11.622 Type 2 diabetes mellitus with other skin ulcer; L97.322 Non-pressure chronic ulcer of left ankle with fat layer exposed; E11.42 Type 2 diabetes mellitus with diabetic polyneuropathy; E11.65 Type 2 diabetes mellitus with hyperglycemia; I10 Essential (primary) hypertension; M00.9 Pyogenic arthritis, unspecified; Z79.82 Long term (current) use of aspirin; Z79.4 Long term (current) use of insulin; Z79.899 Other long term (current) drug therapy; Z96.653 Presence of artificial knee joint, bilateral; Z85.89 Personal history of malignant neoplasm of other organs and systems; Y83.8 Other surgical procedures as the cause of abnormal reaction of the patient, or of later complication, without mention of misadventure at the time of the procedure
CPT/HCPCS: 15271; 36416; 82948; A6209; Q4131; A6021; A6250; A6446

== ENCOUNTER 2018-02-04 09:43 | Day surgery (SDC) | payer MEDICARE, MEDICAID ==
[2018-02-04] MEDS ORDERED: LIDOcaine/PRILOcaine 5gm cream TP ONE (10:18)
== END 2018-02-04 12:09 | disposition home or self-care (01) ==
LOC: WOUND CARE 09:43
PROVIDERS: ATTEND Surgery
DX: T81.89XD Other complications of procedures, not elsewhere classified, subsequent encounter (principal); E11.622 Type 2 diabetes mellitus with other skin ulcer; L97.322 Non-pressure chronic ulcer of left ankle with fat layer exposed; E11.42 Type 2 diabetes mellitus with diabetic polyneuropathy; E11.65 Type 2 diabetes mellitus with hyperglycemia; I10 Essential (primary) hypertension; M00.9 Pyogenic arthritis, unspecified; Z79.82 Long term (current) use of aspirin; Z79.4 Long term (current) use of insulin; Z79.899 Other long term (current) drug therapy; Z96.653 Presence of artificial knee joint, bilateral; Z85.89 Personal history of malignant neoplasm of other organs and systems; Y83.8 Other surgical procedures as the cause of abnormal reaction of the patient, or of later complication, without mention of misadventure at the time of the procedure
CPT/HCPCS: 15271; 36416; 82948; A6209; A6222; Q4133; A6250; A6446

== ENCOUNTER 2018-02-12 08:54 | Outpatient (CLI) | payer MEDICARE, MEDICAID | END 2018-02-12 10:13 | disposition home or self-care (01) | LOC: WOUND CARE 08:54 → EDSTATUS 09:00 → WOUND CARE 10:13 | PROVIDERS: ATTEND Surgery | DX: T81.89XD Other complications of procedures, not elsewhere classified, subsequent encounter (principal); E11.622 Type 2 diabetes mellitus with other skin ulcer; L97.322 Non-pressure chronic ulcer of left ankle with fat layer exposed; E11.42 Type 2 diabetes mellitus with diabetic polyneuropathy; E11.65 Type 2 diabetes mellitus with hyperglycemia; I10 Essential (primary) hypertension; M00.9 Pyogenic arthritis, unspecified; Z79.82 Long term (current) use of aspirin; Z79.4 Long term (current) use of insulin; Z79.899 Other long term (current) drug therapy; Z96.653 Presence of artificial knee joint, bilateral; Z85.89 Personal history of malignant neoplasm of other organs and systems; Y83.8 Other surgical procedures as the cause of abnormal reaction of the patient, or of later complication, without mention of misadventure at the time of the procedure | CPT/HCPCS: 36416; 82948; 99215; A6209; A6206; A6446 ==

== ENCOUNTER 2018-02-19 08:53 | Day surgery (SDC) | payer MEDICARE, MEDICAID ==
[2018-02-19] MEDS ORDERED: LIDOcaine/PRILOcaine 5gm cream TP ONE (09:59)
== END 2018-02-19 11:10 | disposition home or self-care (01) ==
LOC: WOUND CARE 08:53
PROVIDERS: ATTEND Surgery
DX: T81.89XD Other complications of procedures, not elsewhere classified, subsequent encounter (principal); E11.622 Type 2 diabetes mellitus with other skin ulcer; L97.322 Non-pressure chronic ulcer of left ankle with fat layer exposed; E11.42 Type 2 diabetes mellitus with diabetic polyneuropathy; E11.65 Type 2 diabetes mellitus with hyperglycemia; I10 Essential (primary) hypertension; M00.9 Pyogenic arthritis, unspecified; Z79.82 Long term (current) use of aspirin; Z79.4 Long term (current) use of insulin; Z79.899 Other long term (current) drug therapy; Z96.653 Presence of artificial knee joint, bilateral; Z85.89 Personal history of malignant neoplasm of other organs and systems; Y83.8 Other surgical procedures as the cause of abnormal reaction of the patient, or of later complication, without mention of misadventure at the time of the procedure
CPT/HCPCS: 15275; 36416; 82948; A6209; A6222; Q4133; A6250; A6446

== ENCOUNTER 2018-02-24 13:26 | Outpatient (CLI) | payer MEDICARE, MEDICAID | END 2018-02-24 23:59 | disposition home or self-care (01) | LOC: RAD 13:26 | PROVIDERS: ATTEND Surgery | DX: T81.89XD Other complications of procedures, not elsewhere classified, subsequent encounter (principal); E11.622 Type 2 diabetes mellitus with other skin ulcer; L97.322 Non-pressure chronic ulcer of left ankle with fat layer exposed; E11.42 Type 2 diabetes mellitus with diabetic polyneuropathy; E11.65 Type 2 diabetes mellitus with hyperglycemia; I10 Essential (primary) hypertension; M00.9 Pyogenic arthritis, unspecified; Z79.82 Long term (current) use of aspirin; Z79.4 Long term (current) use of insulin; Z79.899 Other long term (current) drug therapy; Z96.653 Presence of artificial knee joint, bilateral; Z85.89 Personal history of malignant neoplasm of other organs and systems; Y83.8 Other surgical procedures as the cause of abnormal reaction of the patient, or of later complication, without mention of misadventure at the time of the procedure | CPT/HCPCS: 73721 ==

== ENCOUNTER 2018-02-26 09:10 | Outpatient (CLI) | payer MEDICARE, MEDICAID | END 2018-02-26 11:14 | disposition home or self-care (01) | LOC: WOUND CARE 09:10 | PROVIDERS: ATTEND Surgery | DX: T81.89XD Other complications of procedures, not elsewhere classified, subsequent encounter (principal); E11.622 Type 2 diabetes mellitus with other skin ulcer; L97.322 Non-pressure chronic ulcer of left ankle with fat layer exposed; E11.42 Type 2 diabetes mellitus with diabetic polyneuropathy; E11.65 Type 2 diabetes mellitus with hyperglycemia; I10 Essential (primary) hypertension; M00.9 Pyogenic arthritis, unspecified; Z79.82 Long term (current) use of aspirin; Z79.4 Long term (current) use of insulin; Z79.899 Other long term (current) drug therapy; Z96.653 Presence of artificial knee joint, bilateral; Z85.89 Personal history of malignant neoplasm of other organs and systems; Y83.8 Other surgical procedures as the cause of abnormal reaction of the patient, or of later complication, without mention of misadventure at the time of the procedure | CPT/HCPCS: 36416; 82948; 99215; A6209; A6206; A6446 ==

== ENCOUNTER 2018-03-12 09:23 | Day surgery (SDC) | payer MEDICARE, MEDICAID ==
[2018-03-12] MEDS ORDERED: LIDOcaine 2% 5ml jelly MM ONE (13:55)
== END 2018-03-12 10:57 | disposition home or self-care (01) ==
LOC: WOUND CARE 09:23
PROVIDERS: ATTEND Surgery
DX: T81.89XD Other complications of procedures, not elsewhere classified, subsequent encounter (principal); E11.622 Type 2 diabetes mellitus with other skin ulcer; L97.322 Non-pressure chronic ulcer of left ankle with fat layer exposed; E11.42 Type 2 diabetes mellitus with diabetic polyneuropathy; E11.65 Type 2 diabetes mellitus with hyperglycemia; I10 Essential (primary) hypertension; M00.9 Pyogenic arthritis, unspecified; Z79.82 Long term (current) use of aspirin; Z79.4 Long term (current) use of insulin; Z79.899 Other long term (current) drug therapy; Z96.653 Presence of artificial knee joint, bilateral; Z85.89 Personal history of malignant neoplasm of other organs and systems; Y83.8 Other surgical procedures as the cause of abnormal reaction of the patient, or of later complication, without mention of misadventure at the time of the procedure
CPT/HCPCS: 15271; 36416; 82948; A6209; A6222; Q4133; A6250; A6446

== ENCOUNTER 2018-03-20 09:55 | Outpatient (CLI) | payer MEDICARE, MEDICAID ==
[2018-03-20] MEDS ORDERED: LIDOcaine 2% 5ml jelly MM ONE (15:40)
== END 2018-03-20 12:03 | disposition home or self-care (01) ==
LOC: WOUND CARE 09:55 → EDSTATUS 10:00 → WOUND CARE 12:03
PROVIDERS: ATTEND Surgery
DX: T81.89XD Other complications of procedures, not elsewhere classified, subsequent encounter (principal); E11.622 Type 2 diabetes mellitus with other skin ulcer; L97.322 Non-pressure chronic ulcer of left ankle with fat layer exposed; E11.42 Type 2 diabetes mellitus with diabetic polyneuropathy; E11.65 Type 2 diabetes mellitus with hyperglycemia; I10 Essential (primary) hypertension; M00.9 Pyogenic arthritis, unspecified; Z79.82 Long term (current) use of aspirin; Z79.4 Long term (current) use of insulin; Z79.899 Other long term (current) drug therapy; Z96.653 Presence of artificial knee joint, bilateral; Z85.89 Personal history of malignant neoplasm of other organs and systems; Y83.8 Other surgical procedures as the cause of abnormal reaction of the patient, or of later complication, without mention of misadventure at the time of the procedure
CPT/HCPCS: 36416; 82948; A6209; G0463; A6206; A6446

== ENCOUNTER 2018-03-31 09:55 | Day surgery (SDC) | payer MEDICARE, MEDICAID ==
[2018-03-31] MEDS ORDERED: LIDOcaine/PRILOcaine 5gm cream TP ONE (10:40)
[2018-03-31] MEDS ORDERED: mupirocin 2% ointment 22GM ONE (11:23)
--- NOTE | 2018-03-31 14:19 | NUR ---
Patient ambulated independently from [facility] and was admitted to outpatient wound care for physician visit with Peter Carey MD. Dressing removed, wound cleansed and lidocaine applied per order. Patient assessed for changes in conditions, medications and medical history. [id number] Patient instructed that elevated blood sugars delay healing of the wound and can cause further complications including but not limited to amputation of toes or feet. Dr. Carey at bedside accompanied by RN. Wound assessed, time out performed by MD/RN. Wound debrided as detailed in the physician progress/procedure note. Plan of care discussed with patient. Dressings placed per MD orders. Patient instructed on the signs and symptoms of infection and to call the Wound Center if any occur or to go to the ED if we are closed: Increased pain in wound Increase in drainage from the wound Redness in the skin surrounding the wound Bleeding from the wound Temperature of 101 or greater Patient instructed that the weight of their body puts a large amount of pressure on their wounds. This pressure keeps the new tissue from growing and inhibits new blood vessels from forming. Explained that, if they continue to bear weight on a body part that has a wound, the time it takes to heal the wound increases, the wound may get worse or the wound may not heal at all. Patient verbalized understanding of all discharge instructions and plan of care and ambulated independently out to [facility] in stable condition with no sign or symptom of distress at time of discharge. Addendum: 03/31/18 at 1425 by Marva Ramos RN Amended: Links added.
== END 2018-03-31 11:35 | disposition home or self-care (01) ==
LOC: WOUND CARE 09:55
PROVIDERS: ATTEND Surgery
DX: T81.89XD Other complications of procedures, not elsewhere classified, subsequent encounter (principal); E11.622 Type 2 diabetes mellitus with other skin ulcer; L97.322 Non-pressure chronic ulcer of left ankle with fat layer exposed; E11.42 Type 2 diabetes mellitus with diabetic polyneuropathy; E11.65 Type 2 diabetes mellitus with hyperglycemia; I10 Essential (primary) hypertension; M00.9 Pyogenic arthritis, unspecified; Z79.82 Long term (current) use of aspirin; Z79.4 Long term (current) use of insulin; Z79.899 Other long term (current) drug therapy; Z96.653 Presence of artificial knee joint, bilateral; Z85.89 Personal history of malignant neoplasm of other organs and systems; Y83.8 Other surgical procedures as the cause of abnormal reaction of the patient, or of later complication, without mention of misadventure at the time of the procedure
CPT/HCPCS: 11042; 36416; 82948; A6209; A6021; A6206; A6446

== ENCOUNTER 2018-04-02 11:57 | Outpatient (CLI) | payer MEDICARE, MEDICAID | END 2018-04-02 23:59 | disposition home or self-care (01) | LOC: RAD 11:57 | PROVIDERS: ATTEND Surgery | DX: T81.89XD Other complications of procedures, not elsewhere classified, subsequent encounter (principal); L97.322 Non-pressure chronic ulcer of left ankle with fat layer exposed; E11.621 Type 2 diabetes mellitus with foot ulcer; I10 Essential (primary) hypertension | CPT/HCPCS: 78805; A9570 ==

== ENCOUNTER 2018-04-07 10:05 | Day surgery (SDC) | payer MEDICARE, MEDICAID ==
--- NOTE | 2018-04-07 15:04 | NUR ---
Patient ambulated independently from [facility] and was admitted to outpatient wound care for physician visit. Dressing removed, wound cleansed and Emla applied per order. Patient assessed for changes in conditions, medications and medical history. Dr. Carey at bedside accompanied by RN. Wound assessed, time out performed by MD/RN. Wound debrided as detailed in the physician progress/procedure note. Plan of care discussed with patient. Dressings placed per MD orders. Patient instructed on the signs and symptoms of infection and to call the Wound Center if any occur or to go to the ED if we are closed: Increased pain in wound Increase in drainage from the wound Redness in the skin surrounding the wound Bleeding from the wound Temperature of 101 or greater Patient instructed that elevated blood sugars delay healing of the wound and can cause further complications including but not limited to amputation of toes or feet. Patient instructed that the weight of their body puts a large amount of pressure on their wounds. This pressure keeps the new tissue from growing and inhibits new blood vessels from forming. Explained that, if they continue to bear weight on a body part that has a wound, the time it takes to heal the wound increases, the wound may get worse or the wound may not heal at all. Patient verbalized understanding of all discharge instructions and plan of care and ambulated independently out to [facility] in stable condition with no sign or symptom of distress at time of discharge Addendum: 04/07/18 at 1505 by Marva Ramos RN Amended: Links added.
== END 2018-04-07 12:09 | disposition home or self-care (01) ==
LOC: WOUND CARE 10:05
PROVIDERS: ATTEND Surgery
DX: T81.89XD Other complications of procedures, not elsewhere classified, subsequent encounter (principal); E11.622 Type 2 diabetes mellitus with other skin ulcer; L97.322 Non-pressure chronic ulcer of left ankle with fat layer exposed; E11.42 Type 2 diabetes mellitus with diabetic polyneuropathy; E11.65 Type 2 diabetes mellitus with hyperglycemia; I10 Essential (primary) hypertension; M00.9 Pyogenic arthritis, unspecified; Z79.82 Long term (current) use of aspirin; Z79.4 Long term (current) use of insulin; Z79.899 Other long term (current) drug therapy; Z96.653 Presence of artificial knee joint, bilateral; Z85.89 Personal history of malignant neoplasm of other organs and systems; Y83.8 Other surgical procedures as the cause of abnormal reaction of the patient, or of later complication, without mention of misadventure at the time of the procedure
CPT/HCPCS: 11042; 36416; 82948; 87070; 87075; 87102; 87176; A6222; A6021

== ENCOUNTER 2018-04-14 09:52 | Day surgery (SDC) | payer MEDICARE, MEDICAID ==
[2018-04-14] MEDS ORDERED: LIDOcaine/PRILOcaine 5gm cream TP ONE (10:16)
--- NOTE | 2018-04-14 14:44 | NUR ---
Patient ambulated independently from [facility] and was admitted to outpatient wound care for physician visit. Dressing removed, wound cleansed and Emla applied per order. Patient assessed for changes in conditions, medications and medical history. Dr. Carey at bedside accompanied by RN. Wound assessed, time out performed by MD/RN. Wound debrided as detailed in the physician progress/procedure note. Plan of care discussed with patient. Dressings placed per MD orders. Patient instructed on the signs and symptoms of infection and to call the Wound Center if any occur or to go to the ED if we are closed: Increased pain in wound Increase in drainage from the wound Redness in the skin surrounding the wound Bleeding from the wound Temperature of 101 or greater Patient instructed that the weight of their body puts a large amount of pressure on their wounds. This pressure keeps the new tissue from growing and inhibits new blood vessels from forming. Explained that, if they continue to bear weight on a body part that has a wound, the time it takes to heal the wound increases, the wound may get worse or the wound may not heal at all. Patient instructed that elevated blood sugars delay healing of the wound and can cause further complications including but not limited to amputation of toes or feet. Patient verbalized understanding of all discharge instructions and plan of care and ambulated independently out to [facility] in stable condition with no sign or symptom of distress at time of discharge Addendum: 04/14/18 at 1447 by Marva Ramos RN Amended: Links added.
== END 2018-04-14 11:30 | disposition home or self-care (01) ==
LOC: WOUND CARE 09:52
PROVIDERS: ATTEND Surgery
DX: T81.89XD Other complications of procedures, not elsewhere classified, subsequent encounter (principal); E11.622 Type 2 diabetes mellitus with other skin ulcer; L97.322 Non-pressure chronic ulcer of left ankle with fat layer exposed; E11.42 Type 2 diabetes mellitus with diabetic polyneuropathy; E11.65 Type 2 diabetes mellitus with hyperglycemia; I10 Essential (primary) hypertension; M00.9 Pyogenic arthritis, unspecified; Z79.82 Long term (current) use of aspirin; Z79.4 Long term (current) use of insulin; Z79.899 Other long term (current) drug therapy; Z96.653 Presence of artificial knee joint, bilateral; Z85.89 Personal history of malignant neoplasm of other organs and systems; Y83.8 Other surgical procedures as the cause of abnormal reaction of the patient, or of later complication, without mention of misadventure at the time of the procedure
CPT/HCPCS: 11042; 36416; 82948; A6209; A6021; A6206

== ENCOUNTER 2018-04-22 09:12 | Outpatient (CLI) | payer MEDICARE, MEDICAID ==
[2018-04-22] MEDS ORDERED: LIDOcaine 2% 5ml jelly ONE (10:00)
--- NOTE | 2018-04-22 12:05 | NUR ---
Patient ambulated independently from [facility] and was admitted to outpatient wound care for physician visit with Peter Carey MD. Dressing removed, wound cleansed and lidocaine applied per order. Patient assessed for changes in conditions, medications and medical history. Dr. Carey at bedside accompanied by RN. Wound assessed and no debridement was done. ordered a snap vac to be placed. Patient given patient trouble shoot guide instructions. Patient instructed on the signs and symptoms of infection and to call the Wound Center if any occur or to go to the ED if we are closed: Increased pain in wound Increase in drainage from the wound Redness in the skin surrounding the wound Bleeding from the wound Temperature of 101 or greater Patient instructed that the weight of their body puts a large amount of pressure on their wounds. This pressure keeps the new tissue from growing and inhibits new blood vessels from forming. Explained that, if they continue to bear weight on a body part that has a wound, the time it takes to heal the wound increases, the wound may get worse or the wound may not heal at all. Patient verbalized understanding of all discharge instructions and plan of care and ambulated independently out to [facility] in stable condition with no sign or symptom of distress at time of discharge. Addendum: 04/22/18 at 1208 by Marva Ramos RN Amended: Links added.
== END 2018-04-22 11:23 | disposition home or self-care (01) ==
LOC: WOUND CARE 09:12 → EDSTATUS 10:00 → WOUND CARE 11:23
PROVIDERS: ATTEND Surgery
DX: T81.89XD Other complications of procedures, not elsewhere classified, subsequent encounter (principal); E11.622 Type 2 diabetes mellitus with other skin ulcer; L97.322 Non-pressure chronic ulcer of left ankle with fat layer exposed; E11.42 Type 2 diabetes mellitus with diabetic polyneuropathy; E11.65 Type 2 diabetes mellitus with hyperglycemia; I10 Essential (primary) hypertension; M00.9 Pyogenic arthritis, unspecified; Z79.82 Long term (current) use of aspirin; Z79.4 Long term (current) use of insulin; Z79.899 Other long term (current) drug therapy; Z96.653 Presence of artificial knee joint, bilateral; Z85.89 Personal history of malignant neoplasm of other organs and systems; Y83.8 Other surgical procedures as the cause of abnormal reaction of the patient, or of later complication, without mention of misadventure at the time of the procedure
CPT/HCPCS: 36416; 82948; 97607

== ENCOUNTER 2018-04-25 10:00 | Day surgery (SDC) | payer MEDICARE, MEDICAID ==
[2018-04-25] MEDS ORDERED: LIDOcaine/PRILOcaine 5gm cream TP ONE (11:35)
--- NOTE | 2018-04-25 13:17 | NUR ---
Patient ambulated independently from [facility] and was admitted to outpatient wound care for physician visit with Peter Carey MD. Dressing removed, wound cleansed and lidocaine applied per order. Patient assessed for changes in conditions, medications and medical history. Dr. Carey at bedside accompanied by RN. Wound assessed, time out performed by MD/RN. Wound debrided as detailed in the physician progress/procedure note. Plan of care discussed with patient. Dressings placed per MD orders. Patient instructed on the signs and symptoms of infection and to call the Wound Center if any occur or to go to the ED if we are closed: Increased pain in wound Increase in drainage from the wound Redness in the skin surrounding the wound Bleeding from the wound Temperature of 101 or greater Patient instructed that elevated blood sugars delay healing of the wound and can cause further complications including but not limited to amputation of toes or feet. Patient instructed that the weight of their body puts a large amount of pressure on their wounds. This pressure keeps the new tissue from growing and inhibits new blood vessels from forming. Explained that, if they continue to bear weight on a body part that has a wound, the time it takes to heal the wound increases, the wound may get worse or the wound may not heal at all. Patient verbalized understanding of all discharge instructions and plan of care and ambulated independently out to [facility] in stable condition with no sign or symptom of distress at time if discharge. Addendum: 04/25/18 at 1320 by Marva Ramos RN Amended: Links added.
== END 2018-04-25 12:36 | disposition home or self-care (01) ==
LOC: WOUND CARE 10:00
PROVIDERS: ATTEND Surgery
DX: T81.89XD Other complications of procedures, not elsewhere classified, subsequent encounter (principal); E11.622 Type 2 diabetes mellitus with other skin ulcer; L97.322 Non-pressure chronic ulcer of left ankle with fat layer exposed; E11.42 Type 2 diabetes mellitus with diabetic polyneuropathy; E11.65 Type 2 diabetes mellitus with hyperglycemia; I10 Essential (primary) hypertension; M00.9 Pyogenic arthritis, unspecified; Z79.82 Long term (current) use of aspirin; Z79.4 Long term (current) use of insulin; Z79.899 Other long term (current) drug therapy; Z96.653 Presence of artificial knee joint, bilateral; Z85.89 Personal history of malignant neoplasm of other organs and systems; Y83.8 Other surgical procedures as the cause of abnormal reaction of the patient, or of later complication, without mention of misadventure at the time of the procedure
CPT/HCPCS: 36416; 82948; 97597; A6206

== ENCOUNTER 2018-04-30 10:06 | Day surgery (SDC) | payer MEDICARE, MEDICAID ==
--- NOTE | 2018-04-30 12:22 | NUR ---
Patient ambulated independently from [facility] and was admitted to outpatient wound care for physician visit. Dressings removed, wound cleansed. Patient assessment completed with review of patient's medical history and current medications. Blood Glucose= 218 @ 1050 1150-Dr. Carey at bedside accompanied by RN. Wound assessed, time-out performed by MD/RN. Wound debrided as detailed in the physician progress/procedure note. Plan of care discussed with patient. Dressings placed per MD orders. Patient instructed on the signs and symptoms of infection and to call the Wound Center if any occur or to go to the ED if we are closed: Increased pain in the wound Increase in drainage from the wound Redness in the skin surrounding the wound Bleeding from the wound Temperature of 101F or greater Patient instructed that the weight of their body puts a large amount of pressure on their wounds. This pressure keeps the new tissue from growing and inhibits new blood vessels from forming. Explained that, if they continue to bear weight on a body part that has a wound, the time it takes to heal the wound increases, the wound may get worse, or the wound may not heal at all. Patient verbalized understanding of all discharge instructions and plan of care. Patient ambulated independently out to [facility] in stable condition with no signs or symptoms of distress at time of discharge.
== END 2018-04-30 12:07 | disposition home or self-care (01) ==
LOC: WOUND CARE 10:06
PROVIDERS: ATTEND Surgery
DX: T81.89XD Other complications of procedures, not elsewhere classified, subsequent encounter (principal); E11.622 Type 2 diabetes mellitus with other skin ulcer; L97.322 Non-pressure chronic ulcer of left ankle with fat layer exposed; E11.42 Type 2 diabetes mellitus with diabetic polyneuropathy; E11.65 Type 2 diabetes mellitus with hyperglycemia; I10 Essential (primary) hypertension; M00.9 Pyogenic arthritis, unspecified; Z79.82 Long term (current) use of aspirin; Z79.4 Long term (current) use of insulin; Z79.899 Other long term (current) drug therapy; Z96.653 Presence of artificial knee joint, bilateral; Z85.89 Personal history of malignant neoplasm of other organs and systems; Y83.8 Other surgical procedures as the cause of abnormal reaction of the patient, or of later complication, without mention of misadventure at the time of the procedure
CPT/HCPCS: 15271; 36416; 82948; A6222; Q4133; A6250

== ENCOUNTER 2018-05-05 10:01 | Outpatient (CLI) | payer MEDICARE, MEDICAID ==
--- NOTE | 2018-05-05 13:32 | NUR ---
Patient ambulated independently from [facility] and was admitted to outpatient wound care for physician visit with Peter Carey MD. Dressing removed, wound cleansed and lidocaine applied per order. Patient assessed for changes in conditions, medications and medical history. Dr. Carey at bedside accompanied by RN. Wound assessed and no debridement was done. Plan of care discussed with patient. Dressings placed per MD orders. Patient instructed on the signs and symptoms of infection and to call the Wound Center if any occur or to go to the ED if we are closed: Increased pain in wound Increase in drainage from the wound Redness in the skin surrounding the wound Bleeding from the wound Temperature of 101 or greater Patient instructed that elevated blood sugars delay healing of the wound and can cause further complications including but not limited to amputation of toes or feet. Patient instructed that the weight of their body puts a large amount of pressure on their wounds. This pressure keeps the new tissue from growing and inhibits new blood vessels from forming. Explained that, if they continue to bear weight on a body part that has a wound, the time it takes to heal the wound increases, the wound may get worse or the wound may not heal at all. Patient verbalized understanding of all discharge instructions and plan of care and ambulated independently out to [facility] in stable condition with no sign or symptom of distress at time of discharge. Addendum: 05/05/18 at 1336 by Marva Ramos RN Amended: Links added.
== END 2018-05-05 12:51 | disposition home or self-care (01) ==
LOC: WOUND CARE 10:01
PROVIDERS: ATTEND Surgery
DX: T81.89XD Other complications of procedures, not elsewhere classified, subsequent encounter (principal); E11.622 Type 2 diabetes mellitus with other skin ulcer; L97.322 Non-pressure chronic ulcer of left ankle with fat layer exposed; E11.42 Type 2 diabetes mellitus with diabetic polyneuropathy; E11.65 Type 2 diabetes mellitus with hyperglycemia; I10 Essential (primary) hypertension; M00.9 Pyogenic arthritis, unspecified; Z79.82 Long term (current) use of aspirin; Z79.4 Long term (current) use of insulin; Z79.899 Other long term (current) drug therapy; Z96.653 Presence of artificial knee joint, bilateral; Z85.89 Personal history of malignant neoplasm of other organs and systems; Y83.8 Other surgical procedures as the cause of abnormal reaction of the patient, or of later complication, without mention of misadventure at the time of the procedure
CPT/HCPCS: 36416; 97607; A6209

== ENCOUNTER 2018-05-09 08:55 | Outpatient (CLI) | payer MEDICARE, MEDICAID ==
[2018-05-09] MEDS ORDERED: LIDOcaine 2% 5ml jelly ONE (09:41)
[2018-05-09] MEDS ORDERED: mupirocin 2% ointment 22GM ONE (10:57)
--- NOTE | 2018-05-09 12:17 | NUR ---
Patient ambulated independently from [facility] and was admitted to outpatient wound care for physician visit with Peter Carey MD. Dressing removed, wound cleansed and lidocaine applied per order. Patient assessed for changes in conditions, medications and medical history. Dr. Carey at bedside accompanied by RN. Wound assessed, time out performed by MD/RN. Wound debrided as detailed in the physician progress/procedure note. Plan of care discussed with patient. Dressings placed per MD orders. Patient instructed on the signs and symptoms of infection and to call the Wound Center if any occur or to go to the ED if we are closed: Increased pain in wound Increase in drainage from the wound Redness in the skin surrounding the wound Bleeding from the wound Temperature of 101 or greater Patient instructed that elevated blood sugars delay healing of the wound and can cause further complications including but not limited to amputation of toes or feet. Patient instructed that the weight of their body puts a large amount of pressure on their wounds. This pressure keeps the new tissue from growing and inhibits new blood vessels from forming. Explained that, if they continue to bear weight on a body part that has a wound, the time it takes to heal the wound increases, the wound may get worse or the wound may not heal at all. Patient verbalized understanding of all discharge instructions and plan of care and ambulated independently out to [facility] in stable condition with no sign or symptom of distress at time of discharge. Addendum: 05/09/18 at 1219 by Marva Ramos RN Amended: Links added.
== END 2018-05-09 11:10 | disposition home or self-care (01) ==
LOC: WOUND CARE 08:55 → EDSTATUS 10:00 → WOUND CARE 11:10
PROVIDERS: ATTEND Surgery
DX: T81.89XD Other complications of procedures, not elsewhere classified, subsequent encounter (principal); E11.622 Type 2 diabetes mellitus with other skin ulcer; L97.322 Non-pressure chronic ulcer of left ankle with fat layer exposed; E11.42 Type 2 diabetes mellitus with diabetic polyneuropathy; E11.65 Type 2 diabetes mellitus with hyperglycemia; I10 Essential (primary) hypertension; M00.9 Pyogenic arthritis, unspecified; Z79.82 Long term (current) use of aspirin; Z79.4 Long term (current) use of insulin; Z79.899 Other long term (current) drug therapy; Z96.653 Presence of artificial knee joint, bilateral; Z85.89 Personal history of malignant neoplasm of other organs and systems; Y83.8 Other surgical procedures as the cause of abnormal reaction of the patient, or of later complication, without mention of misadventure at the time of the procedure
CPT/HCPCS: 36416; 82948; G0463; A6021; A6206

== ENCOUNTER 2018-05-12 08:47 | Day surgery (SDC) | payer MEDICARE, MEDICAID ==
[2018-05-12] MEDS ORDERED: LIDOcaine/PRILOcaine 5gm cream TP ONE (09:44)
[2018-05-12] MEDS ORDERED: nystatin/triamcinolone cream 15gm TP ONE (10:47)
--- NOTE | 2018-05-12 15:57 | NUR ---
Patient ambulated independently from [facility] and was admitted to outpatient wound care for physician visit with Peter Carey MD. Dressing removed, wound cleansed and lidocaine applied per order. Patient assessed for changes in conditions, medications and medical history. Dr. Carey at bedside accompanied by RN. Wound assessed, time out performed by MD/RN. Wound debrided as detailed in the physician progress/procedure note. Plan of care discussed with patient. Dressings placed per MD orders. Patient instructed on the signs and symptoms of infection and to call the Wound Center if any occur or to go to the ED if we are closed: Increased pain in wound Increase in drainage from the wound Redness in the skin surrounding the wound Bleeding from the wound Temperature of 101 or greater Patient instructed that elevated blood sugars delay healing of the wound and can cause further complications including but not limited to amputation of toes or feet. Patient instructed that the weight of their body puts a large amount of pressure on their wounds. This pressure keeps the new tissue from growing and inhibits new blood vessels from forming. Explained that, if they continue to bear weight on a body part that has a wound, the time it takes to heal the wound increases, the wound may get worse or the wound may not heal at all. Patient verbalized understanding of all discharge instructions and plan of care and ambulated independently out to [facility] in stable condition with no sign or symptom of distress at time of discharge. Addendum: 05/12/18 at 1558 by Marva Ramos RN Amended: Links added.
== END 2018-05-12 11:25 | disposition home or self-care (01) ==
LOC: WOUND CARE 08:47
PROVIDERS: ATTEND Surgery
DX: T81.89XD Other complications of procedures, not elsewhere classified, subsequent encounter (principal); E11.622 Type 2 diabetes mellitus with other skin ulcer; L97.322 Non-pressure chronic ulcer of left ankle with fat layer exposed; E11.42 Type 2 diabetes mellitus with diabetic polyneuropathy; E11.65 Type 2 diabetes mellitus with hyperglycemia; I10 Essential (primary) hypertension; M00.9 Pyogenic arthritis, unspecified; Z79.82 Long term (current) use of aspirin; Z79.4 Long term (current) use of insulin; Z79.899 Other long term (current) drug therapy; Z96.653 Presence of artificial knee joint, bilateral; Z85.89 Personal history of malignant neoplasm of other organs and systems; Y83.8 Other surgical procedures as the cause of abnormal reaction of the patient, or of later complication, without mention of misadventure at the time of the procedure
CPT/HCPCS: 15271; 36416; 82948; A6222; Q4133; A6021; A6446

== ENCOUNTER 2018-05-15 09:02 | Outpatient (CLI) | payer MEDICARE, MEDICAID ==
[2018-05-15] MEDS ORDERED: LIDOcaine/PRILOcaine 5gm cream TP ONE (09:39)
[2018-05-15] MEDS ORDERED: nystatin/triamcinolone cream 15gm TP ONE (09:46)
--- NOTE | 2018-05-15 14:35 | NUR ---
Patient ambulated independently from [facility] and was admitted to outpatient wound care for nursing visit. Dressings and snap vac removed. Wound cleansed and patient assessed for changes in conditions, medications and medical history. Dressings and snap vac reapplied per physician orders. Patient instructed on the signs and symptoms of infection and to call the Wound Center if any occur or to go to the ED if we are closed: Increased pain in wound Increase in drainage from the wound Redness in the skin surrounding the wound Bleeding from the wound Temperature of 101 or greater Patient instructed that elevated blood sugars delay healing of the wound and can cause further complications including but not limited to amputation of toes or feet. Patient instructed that the weight of their body puts a large amount of pressure on their wounds. This pressure keeps the new tissue from growing and inhibits new blood vessels from forming. Explained that, if they continue to bear weight on a body part that has a wound, the time it takes to heal the wound increases, the wound may get worse or the wound may not heal at all. Patient verbalized understanding of all discharge instructions and plan of care and ambulated independently out to [facility] in stable condition with no sign or symptom of distress at time of discharge. Addendum: 05/15/18 at 1437 by Marva Ramos RN Amended: Links added.
== END 2018-05-15 10:22 | disposition home or self-care (01) ==
LOC: WOUND CARE 09:02 → EDSTATUS 09:30 → WOUND CARE 10:22
PROVIDERS: ATTEND Surgery
DX: T81.89XD Other complications of procedures, not elsewhere classified, subsequent encounter (principal); E11.622 Type 2 diabetes mellitus with other skin ulcer; L97.322 Non-pressure chronic ulcer of left ankle with fat layer exposed; E11.42 Type 2 diabetes mellitus with diabetic polyneuropathy; E11.65 Type 2 diabetes mellitus with hyperglycemia; I10 Essential (primary) hypertension; M00.9 Pyogenic arthritis, unspecified; Z79.82 Long term (current) use of aspirin; Z79.4 Long term (current) use of insulin; Z79.899 Other long term (current) drug therapy; Z96.653 Presence of artificial knee joint, bilateral; Z85.89 Personal history of malignant neoplasm of other organs and systems; Y83.8 Other surgical procedures as the cause of abnormal reaction of the patient, or of later complication, without mention of misadventure at the time of the procedure
CPT/HCPCS: 36416; 82948; 97607

== ENCOUNTER 2018-05-20 08:48 | Day surgery (SDC) | payer MEDICARE, MEDICAID ==
[2018-05-20] MEDS ORDERED: LIDOcaine/PRILOcaine 5gm cream TP ONE (09:48)
[2018-05-20] MEDS ORDERED: nystatin/triamcinolone cream 15gm TP ONE (10:34)
--- NOTE | 2018-05-20 12:15 | NUR ---
Patient ambulated independently from [facility] and was admitted to outpatient wound care for physician visit with Peter Carey MD. Dressing removed, wound cleansed and lidocaine applied per order. Patient assessed for changes in conditions, medications and medical history. Dr. Carey at bedside accompanied by RN. Wound assessed, time out performed by MD/RN. Wound debrided as detailed in the physician progress/procedure note. Plan of care discussed with patient. Dressings placed per MD orders. Patient instructed on the signs and symptoms of infection and to call the Wound Center if any occur or to go to the ED if we are closed: Increased pain in wound Increase in drainage from the wound Redness in the skin surrounding the wound Bleeding from the wound Temperature of 101 or greater Patient instructed that elevated blood sugars delay healing of the wound and can cause further complications including but not limited to amputation of toes or feet. Patient instructed that the weight of their body puts a large amount of pressure on their wounds. This pressure keeps the new tissue from growing and inhibits new blood vessels from forming. Explained that, if they continue to bear weight on a body part that has a wound, the time it takes to heal the wound increases, the wound may get worse or the wound may not heal at all. Patient verbalized understanding of all discharge instructions and plan of care and ambulated independently out to [facility] in stable condition with no sign or symptom of distress at time of discharge. Addendum: 05/20/18 at 1218 by Marva Ramos RN Amended: Links added.
== END 2018-05-20 11:15 | disposition home or self-care (01) ==
LOC: WOUND CARE 08:48
PROVIDERS: ATTEND Surgery
DX: T81.89XD Other complications of procedures, not elsewhere classified, subsequent encounter (principal); E11.622 Type 2 diabetes mellitus with other skin ulcer; L97.322 Non-pressure chronic ulcer of left ankle with fat layer exposed; E11.42 Type 2 diabetes mellitus with diabetic polyneuropathy; E11.65 Type 2 diabetes mellitus with hyperglycemia; I10 Essential (primary) hypertension; M00.9 Pyogenic arthritis, unspecified; Z79.82 Long term (current) use of aspirin; Z79.4 Long term (current) use of insulin; Z79.899 Other long term (current) drug therapy; Z96.653 Presence of artificial knee joint, bilateral; Z85.89 Personal history of malignant neoplasm of other organs and systems; Y83.8 Other surgical procedures as the cause of abnormal reaction of the patient, or of later complication, without mention of misadventure at the time of the procedure
CPT/HCPCS: 36416; 82948; 97597; A6222; A6021

== ENCOUNTER 2018-05-22 09:44 | Day surgery (SDC) | payer MEDICARE, MEDICAID ==
[2018-05-22] MEDS ORDERED: nystatin/triamcinolone cream 15gm TP ONE (11:45)
--- NOTE | 2018-05-22 12:32 | NUR ---
Patient ambulated independently from [facility] and was admitted to outpatient wound care for physician visit with Peter Carey MD. Placed in contact isolation precautions per hospital policy. Dressing removed, wound cleansed and Emla cream applied per order. Patient assessed for changes in conditions, medications and medical history. 1111 - blood glucose 192. Patient instructed that elevated blood sugars delay healing of the wound and can cause further complications including but not limited to amputation of toes or feet. 1130 - Dr. Carey at bedside accompanied by RN. Wound assessed, time out performed by MD/RN. Wound debrided and procedure performed as detailed in the physician progress/procedure note. Plan of care discussed with patient. Dressings placed per MD orders. Patient instructed on the signs and symptoms of infection and to call the Wound Center if any occur or to go to the ED if we are closed: Increased pain in wound Increase in drainage from the wound Redness in the skin surrounding the wound Bleeding from the wound Temperature of 101 or greater Patient instructed that the weight of their body puts a large amount of pressure on their wounds. This pressure keeps the new tissue from growing and inhibits new blood vessels from forming. Explained that, if they continue to bear weight on a body part that has a wound, the time it takes to heal the wound increases, the wound may get worse or the wound may not heal at all. Patient verbalized understanding of all discharge instructions and plan of care and ambulated independently out to [facility] in stable condition with no sign or symptom of distress at time of discharge.
== END 2018-05-22 12:12 | disposition home or self-care (01) ==
LOC: WOUND CARE 09:44
PROVIDERS: ATTEND Surgery
DX: T81.89XD Other complications of procedures, not elsewhere classified, subsequent encounter (principal); E11.622 Type 2 diabetes mellitus with other skin ulcer; L97.322 Non-pressure chronic ulcer of left ankle with fat layer exposed; E11.42 Type 2 diabetes mellitus with diabetic polyneuropathy; E11.65 Type 2 diabetes mellitus with hyperglycemia; I10 Essential (primary) hypertension; M00.9 Pyogenic arthritis, unspecified; Z79.82 Long term (current) use of aspirin; Z79.4 Long term (current) use of insulin; Z79.899 Other long term (current) drug therapy; Z96.653 Presence of artificial knee joint, bilateral; Z85.89 Personal history of malignant neoplasm of other organs and systems; Z86.19 Personal history of other infectious and parasitic diseases; Y83.8 Other surgical procedures as the cause of abnormal reaction of the patient, or of later complication, without mention of misadventure at the time of the procedure
CPT/HCPCS: 15271; 36416; 82948; A6222; Q4133; A6250

== ENCOUNTER 2018-05-27 09:26 | Outpatient (CLI) | payer MEDICARE, MEDICAID ==
--- NOTE | 2018-05-27 11:59 | NUR ---
Patient ambulated independently from [facility] and was admitted to outpatient wound care for physician visit with Peter Carey MD. Dressing removed, wound cleansed and lidocaine applied per order. Patient assessed for changes in conditions, medications and medical history. Dr. Carey at bedside accompanied by RN. Wound assessed, time out performed by MD/RN. Wound debrided as detailed in the physician progress/procedure note. Plan of care discussed with patient. Dressings placed per MD orders. Patient instructed on the signs and symptoms of infection and to call the Wound Center if any occur or to go to the ED if we are closed: Increased pain in wound Increase in drainage from the wound Redness in the skin surrounding the wound Bleeding from the wound Temperature of 101 or greater Patient instructed that elevated blood sugars delay healing of the wound and can cause further complications including but not limited to amputation of toes or feet. Patient instructed that the weight of their body puts a large amount of pressure on their wounds. This pressure keeps the new tissue from growing and inhibits new blood vessels from forming. Explained that, if they continue to bear weight on a body part that has a wound, the time it takes to heal the wound increases, the wound may get worse or the wound may not heal at all. Patient verbalized understanding of all discharge instructions and plan of care and ambulated independently out to [facility] in stable condition with no sign or symptom of distress at time of discharge. Addendum: 05/27/18 at 1201 by Marva Ramos RN Amended: Links added.
== END 2018-05-27 10:54 | disposition home or self-care (01) ==
LOC: WOUND CARE 09:26 → EDSTATUS 09:30 → WOUND CARE 10:54
PROVIDERS: ATTEND Surgery
DX: T81.89XD Other complications of procedures, not elsewhere classified, subsequent encounter (principal); E11.622 Type 2 diabetes mellitus with other skin ulcer; L97.322 Non-pressure chronic ulcer of left ankle with fat layer exposed; E11.42 Type 2 diabetes mellitus with diabetic polyneuropathy; E11.65 Type 2 diabetes mellitus with hyperglycemia; I10 Essential (primary) hypertension; M00.9 Pyogenic arthritis, unspecified; Z79.82 Long term (current) use of aspirin; Z79.4 Long term (current) use of insulin; Z79.899 Other long term (current) drug therapy; Z96.653 Presence of artificial knee joint, bilateral; Z85.89 Personal history of malignant neoplasm of other organs and systems; Z86.19 Personal history of other infectious and parasitic diseases; Y83.8 Other surgical procedures as the cause of abnormal reaction of the patient, or of later complication, without mention of misadventure at the time of the procedure
CPT/HCPCS: 36416; 82948; G0463; A6206; A6446

== ENCOUNTER 2018-06-04 08:47 | Day surgery (SDC) | payer MEDICARE, MEDICAID ==
[2018-06-04] MEDS ORDERED: LIDOcaine/PRILOcaine 5gm cream TP ONE (09:34)
--- NOTE | 2018-06-04 11:41 | NUR ---
Patient ambulated independently from [facility] and was admitted to outpatient wound care for physician visit. Dressings removed, wound cleansed. Patient assessment completed with review of patient's medical history and current medications. Blood Glucose= 173 @ 0920 0957-Dr. Carey at bedside accompanied by RN. Wound assessed, time-out performed by MD/RN. Wound debrided as detailed in the physician progress/procedure note. Plan of care discussed with patient. Dressings placed per MD orders. Patient instructed on the signs and symptoms of infection and to call the Wound Center if any occur or to go to the ED if we are closed: Increased pain in the wound Increase in drainage from the wound Redness in the skin surrounding the wound Bleeding from the wound Temperature of 101F or greater Patient instructed that the weight of their body puts a large amount of pressure on their wounds. This pressure keeps the new tissue from growing and inhibits new blood vessels from forming. Explained that, if they continue to bear weight on a body part that has a wound, the time it takes to heal the wound increases, the wound may get worse, or the wound may not heal at all. Patient verbalized understanding of all discharge instructions and plan of care. Patient ambulated independently out to [facility] in stable condition with no signs or symptoms of distress at time of discharge.
== END 2018-06-04 10:42 | disposition home or self-care (01) ==
LOC: WOUND CARE 08:47
PROVIDERS: ATTEND Surgery
DX: T81.89XD Other complications of procedures, not elsewhere classified, subsequent encounter (principal); E11.622 Type 2 diabetes mellitus with other skin ulcer; L97.322 Non-pressure chronic ulcer of left ankle with fat layer exposed; E11.42 Type 2 diabetes mellitus with diabetic polyneuropathy; E11.65 Type 2 diabetes mellitus with hyperglycemia; I10 Essential (primary) hypertension; M00.9 Pyogenic arthritis, unspecified; Z79.82 Long term (current) use of aspirin; Z79.4 Long term (current) use of insulin; Z79.899 Other long term (current) drug therapy; Z96.653 Presence of artificial knee joint, bilateral; Z85.89 Personal history of malignant neoplasm of other organs and systems; Z86.19 Personal history of other infectious and parasitic diseases; Y83.8 Other surgical procedures as the cause of abnormal reaction of the patient, or of later complication, without mention of misadventure at the time of the procedure
CPT/HCPCS: 15271; 36416; 82948; A6209; Q4133; A6250

== ENCOUNTER 2018-06-17 10:05 | Day surgery (SDC) | payer MEDICARE, MEDICAID ==
--- NOTE | 2018-06-17 12:00 | NUR ---
Patient ambulated independently from [facility] and was admitted to outpatient wound care for physician visit with Peter Carey MD. Placed in contact isolation precautions per hospital policy. Dressing removed, wound cleansed. Patient assessed for changes in conditions, medications and medical history. 1125 - blood glucose 294. Patient instructed that elevated blood sugars delay healing of the wound and can cause further complications including but not limited to amputation of toes or feet. 1120 - Dr. Carey at bedside accompanied by RN. Wound assessed, time out performed by MD/RN. Wound debrided as detailed in the physician progress/procedure note. Plan of care discussed with patient. Dressings placed per MD orders. Patient instructed on the signs and symptoms of infection and to call the Wound Center if any occur or to go to the ED if we are closed: Increased pain in wound Increase in drainage from the wound Redness in the skin surrounding the wound Bleeding from the wound Temperature of 101 or greater Patient instructed that the weight of their body puts a large amount of pressure on their wounds. This pressure keeps the new tissue from growing and inhibits new blood vessels from forming. Explained that, if they continue to bear weight on a body part that has a wound, the time it takes to heal the wound increases, the wound may get worse or the wound may not heal at all. Patient verbalized understanding of all discharge instructions and plan of care and ambulated independently out to [facility] in stable condition with no sign or symptom of distress at time of discharge.
== END 2018-06-17 12:22 | disposition home or self-care (01) ==
LOC: WOUND CARE 10:05
PROVIDERS: ATTEND Surgery
DX: T81.89XD Other complications of procedures, not elsewhere classified, subsequent encounter (principal); E11.622 Type 2 diabetes mellitus with other skin ulcer; L97.322 Non-pressure chronic ulcer of left ankle with fat layer exposed; E11.42 Type 2 diabetes mellitus with diabetic polyneuropathy; E11.65 Type 2 diabetes mellitus with hyperglycemia; I10 Essential (primary) hypertension; M00.9 Pyogenic arthritis, unspecified; Z79.82 Long term (current) use of aspirin; Z79.4 Long term (current) use of insulin; Z79.899 Other long term (current) drug therapy; Z96.653 Presence of artificial knee joint, bilateral; Z85.89 Personal history of malignant neoplasm of other organs and systems; Z86.19 Personal history of other infectious and parasitic diseases; Y83.8 Other surgical procedures as the cause of abnormal reaction of the patient, or of later complication, without mention of misadventure at the time of the procedure
CPT/HCPCS: 36416; 82948; 97607; A6021

== ENCOUNTER 2018-06-19 10:04 | Outpatient (CLI) | payer MEDICARE, MEDICAID ==
--- NOTE | 2018-06-19 14:35 | NUR ---
Patient ambulated independently from [facility] and was admitted to outpatient wound care for physician visit with Peter Carey MD. Dressing removed, wound cleansed and lidocaine applied per order. Patient assessed for changes in conditions, medications and medical history. Dr. Carey at bedside accompanied by RN. Wound assessed, time out performed by MD/RN. Wound debrided as detailed in the physician progress/procedure note. Plan of care discussed with patient. Dressings placed per MD orders. Patient instructed on the signs and symptoms of infection and to call the Wound Center if any occur or to go to the ED if we are closed: Increased pain in wound Increase in drainage from the wound Redness in the skin surrounding the wound Bleeding from the wound Temperature of 101 or greater Patient instructed that elevated blood sugars delay healing of the wound and can cause further complications including but not limited to amputation of toes or feet. Patient instructed that the weight of their body puts a large amount of pressure on their wounds. This pressure keeps the new tissue from growing and inhibits new blood vessels from forming. Explained that, if they continue to bear weight on a body part that has a wound, the time it takes to heal the wound increases, the wound may get worse or the wound may not heal at all. Patient verbalized understanding of all discharge instructions and plan of care and ambulated independently out to [facility] in stable condition with no sign or symptom of distress at time of discharge. Addendum: 06/19/18 at 1437 by Marva Ramos RN Amended: Links added.
== END 2018-06-19 12:36 | disposition home or self-care (01) ==
LOC: WOUND CARE 10:04
PROVIDERS: ATTEND Surgery
DX: T81.89XD Other complications of procedures, not elsewhere classified, subsequent encounter (principal); E11.622 Type 2 diabetes mellitus with other skin ulcer; L97.322 Non-pressure chronic ulcer of left ankle with fat layer exposed; E11.42 Type 2 diabetes mellitus with diabetic polyneuropathy; E11.65 Type 2 diabetes mellitus with hyperglycemia; I10 Essential (primary) hypertension; M00.9 Pyogenic arthritis, unspecified; Z79.82 Long term (current) use of aspirin; Z79.4 Long term (current) use of insulin; Z79.899 Other long term (current) drug therapy; Z96.653 Presence of artificial knee joint, bilateral; Z85.89 Personal history of malignant neoplasm of other organs and systems; Z86.19 Personal history of other infectious and parasitic diseases; Y83.8 Other surgical procedures as the cause of abnormal reaction of the patient, or of later complication, without mention of misadventure at the time of the procedure
CPT/HCPCS: 36416; 82948; 97607; A6209; A6021

== ENCOUNTER 2018-06-24 10:04 | Day surgery (SDC) | payer MEDICARE, MEDICAID ==
[2018-06-24] MEDS ORDERED: LIDOcaine/PRILOcaine 5gm cream TP ONE (11:40)
[2018-06-24] MEDS ORDERED: hydrocortisone 1% cream 28gm TP ONE (12:33)
--- NOTE | 2018-06-24 14:32 | NUR ---
Patient ambulated independently from [facility] and was admitted to outpatient wound care for physician visit with Peter Carey MD. Dressing removed, wound cleansed and lidocaine applied per order. Patient assessed for changes in conditions, medications and medical history. Dr. Carey at bedside accompanied by RN. Wound assessed, time out performed by MD/RN. Wound debrided as detailed in the physician progress/procedure note. Plan of care discussed with patient. Dressings placed per MD orders. Patient instructed on the signs and symptoms of infection and to call the Wound Center if any occur or to go to the ED if we are closed: Increased pain in wound Increase in drainage from the wound Redness in the skin surrounding the wound Bleeding from the wound Temperature of 101 or greater Patient instructed that elevated blood sugars delay healing of the wound and can cause further complications including but not limited to amputation of toes or feet. Patient instructed that the weight of their body puts a large amount of pressure on their wounds. This pressure keeps the new tissue from growing and inhibits new blood vessels from forming. Explained that, if they continue to bear weight on a body part that has a wound, the time it takes to heal the wound increases, the wound may get worse or the wound may not heal at all. Patient verbalized understanding of all discharge instructions and plan of care and ambulated independently out to [facility] in stable condition with no sign or symptom of distress at time of discharge. Addendum: 06/24/18 at 1433 by Marva Ramos RN Amended: Links added.
== END 2018-06-24 14:00 | disposition home or self-care (01) ==
LOC: WOUND CARE 10:04
PROVIDERS: ATTEND Surgery
DX: T81.89XD Other complications of procedures, not elsewhere classified, subsequent encounter (principal); E11.622 Type 2 diabetes mellitus with other skin ulcer; L97.322 Non-pressure chronic ulcer of left ankle with fat layer exposed; E11.42 Type 2 diabetes mellitus with diabetic polyneuropathy; E11.65 Type 2 diabetes mellitus with hyperglycemia; I10 Essential (primary) hypertension; M00.9 Pyogenic arthritis, unspecified; Z79.82 Long term (current) use of aspirin; Z79.4 Long term (current) use of insulin; Z79.899 Other long term (current) drug therapy; Z96.653 Presence of artificial knee joint, bilateral; Z85.89 Personal history of malignant neoplasm of other organs and systems; Z86.19 Personal history of other infectious and parasitic diseases; Y83.8 Other surgical procedures as the cause of abnormal reaction of the patient, or of later complication, without mention of misadventure at the time of the procedure
CPT/HCPCS: 36416; 82948; 97597; A6223; A6021

== ENCOUNTER 2018-06-27 10:04 | Day surgery (SDC) | payer MEDICARE, MEDICAID ==
[2018-06-27] MEDS ORDERED: mupirocin 2% ointment 22GM ONE (11:15)
[2018-06-27] MEDS ORDERED: hydrocortisone 1% cream 28gm TP ONE (11:18)
--- NOTE | 2018-06-27 13:31 | NUR ---
Patient ambulated independently from [facility] and was admitted to outpatient wound care for physician visit with Peter Carey MD. Dressing and snap vac removed and wound cleansed. Patient assessed for changes in conditions, medications and medical history. Dr. Carey at bedside accompanied by RN. Wound assessed, time out performed by MD/RN. Wound debrided as detailed in the physician progress/procedure note. Plan of care discussed with patient. Dressings placed per MD orders. Patient instructed on the signs and symptoms of infection and to call the Wound Center if any occur or to go to the ED if we are closed: Increased pain in wound Increase in drainage from the wound Redness in the skin surrounding the wound Bleeding from the wound Temperature of 101 or greater Patient instructed that elevated blood sugars delay healing of the wound and can cause further complications including but not limited to amputation of toes or feet. Patient instructed that the weight of their body puts a large amount of pressure on their wounds. This pressure keeps the new tissue from growing and inhibits new blood vessels from forming. Explained that, if they continue to bear weight on a body part that has a wound, the time it takes to heal the wound increases, the wound may get worse or the wound may not heal at all. Patient verbalized understanding of all discharge instructions and plan of care and ambulated independently out to [facility] in stable condition with no sign or symptom of distress at time of discharge. Addendum: 06/27/18 at 1333 by Marva Ramos RN Amended: Links added.
== END 2018-06-27 11:51 | disposition home or self-care (01) ==
LOC: WOUND CARE 10:04
PROVIDERS: ATTEND Surgery
DX: T81.89XD Other complications of procedures, not elsewhere classified, subsequent encounter (principal); E11.622 Type 2 diabetes mellitus with other skin ulcer; L97.322 Non-pressure chronic ulcer of left ankle with fat layer exposed; E11.42 Type 2 diabetes mellitus with diabetic polyneuropathy; E11.65 Type 2 diabetes mellitus with hyperglycemia; I10 Essential (primary) hypertension; M00.9 Pyogenic arthritis, unspecified; Z79.82 Long term (current) use of aspirin; Z79.4 Long term (current) use of insulin; Z79.899 Other long term (current) drug therapy; Z96.653 Presence of artificial knee joint, bilateral; Z85.89 Personal history of malignant neoplasm of other organs and systems; Z86.19 Personal history of other infectious and parasitic diseases; Y83.8 Other surgical procedures as the cause of abnormal reaction of the patient, or of later complication, without mention of misadventure at the time of the procedure
CPT/HCPCS: 15271; 36416; 82948; A6222; Q4133; A6021; A6206

== ENCOUNTER 2018-07-01 09:44 | Outpatient (CLI) | payer MEDICARE, MEDICAID ==
[2018-07-01] MEDS ORDERED: mupirocin 2% ointment 22GM ONE (11:26)
--- NOTE | 2018-07-01 12:00 | NUR ---
Patient ambulated independently from [facility] and was admitted to outpatient wound care for physician visit with Peter Carey MD. Dressing removed, wound cleansed. Patient assessed for changes in conditions, medications and medical history. 1016 - blood glucose 115. Patient instructed that elevated blood sugars delay healing of the wound and can cause further complications including but not limited to amputation of toes or feet. 1050 - Dr. Carey at bedside accompanied by RN. Wound assessed by MD, orders written. Plan of care discussed with patient. Dressings placed per MD orders. Patient instructed on the signs and symptoms of infection and to call the Wound Center if any occur or to go to the ED if we are closed: Increased pain in wound Increase in drainage from the wound Redness in the skin surrounding the wound Bleeding from the wound Temperature of 101 or greater Patient instructed that the weight of their body puts a large amount of pressure on their wounds. This pressure keeps the new tissue from growing and inhibits new blood vessels from forming. Explained that, if they continue to bear weight on a body part that has a wound, the time it takes to heal the wound increases, the wound may get worse or the wound may not heal at all. Patient verbalized understanding of all discharge instructions and plan of care and ambulated independently out to [facility] in stable condition with no sign or symptom of distress at time of discharge.
== END 2018-07-01 12:00 | disposition home or self-care (01) ==
LOC: WOUND CARE 09:44 → EDSTATUS 10:00 → WOUND CARE 12:00
PROVIDERS: ATTEND Surgery
DX: T81.89XD Other complications of procedures, not elsewhere classified, subsequent encounter (principal); E11.622 Type 2 diabetes mellitus with other skin ulcer; L97.322 Non-pressure chronic ulcer of left ankle with fat layer exposed; E11.42 Type 2 diabetes mellitus with diabetic polyneuropathy; E11.65 Type 2 diabetes mellitus with hyperglycemia; I10 Essential (primary) hypertension; M00.9 Pyogenic arthritis, unspecified; Z79.82 Long term (current) use of aspirin; Z79.4 Long term (current) use of insulin; Z79.899 Other long term (current) drug therapy; Z96.653 Presence of artificial knee joint, bilateral; Z85.89 Personal history of malignant neoplasm of other organs and systems; Z86.19 Personal history of other infectious and parasitic diseases; Y83.8 Other surgical procedures as the cause of abnormal reaction of the patient, or of later complication, without mention of misadventure at the time of the procedure
CPT/HCPCS: 36416; 82948; 97607; A6222

== ENCOUNTER 2018-07-04 09:16 | Outpatient (CLI) | payer MEDICARE, MEDICAID ==
[2018-07-04] MEDS ORDERED: LIDOcaine/PRILOcaine 5gm cream TP ONE (09:43)
--- NOTE | 2018-07-04 10:45 | NUR ---
Patient ambulated independently from [facility] and was admitted to outpatient wound care for physician visit with Peter Carey MD. Dressing removed, wound cleansed. Patient assessed for changes in conditions, medications and medical history. 0949 - blood glucose 211. Patient instructed that elevated blood sugars delay healing of the wound and can cause further complications including but not limited to amputation of toes or feet. 1000 - Dr. Carey at bedside accompanied by RN. Wound assessed by MD, orders written. Plan of care discussed with patient. Dressings placed per MD orders. Patient instructed on the signs and symptoms of infection and to call the Wound Center if any occur or to go to the ED if we are closed: Increased pain in wound Increase in drainage from the wound Redness in the skin surrounding the wound Bleeding from the wound Temperature of 101 or greater Patient instructed that the weight of their body puts a large amount of pressure on their wounds. This pressure keeps the new tissue from growing and inhibits new blood vessels from forming. Explained that, if they continue to bear weight on a body part that has a wound, the time it takes to heal the wound increases, the wound may get worse or the wound may not heal at all. Patient verbalized understanding of all discharge instructions and plan of care and ambulated independently out to [facility] in stable condition with no sign or symptom of distress at time of discharge.
[2018-07-04] MEDS ORDERED: nystatin/triamcinolone cream 15gm TP ONE (10:53)
== END 2018-07-04 11:20 | disposition home or self-care (01) ==
LOC: WOUND CARE 09:16 → EDSTATUS 09:30 → WOUND CARE 11:20
PROVIDERS: ATTEND Surgery
DX: T81.89XD Other complications of procedures, not elsewhere classified, subsequent encounter (principal); E11.622 Type 2 diabetes mellitus with other skin ulcer; L97.322 Non-pressure chronic ulcer of left ankle with fat layer exposed; E11.42 Type 2 diabetes mellitus with diabetic polyneuropathy; E11.65 Type 2 diabetes mellitus with hyperglycemia; I10 Essential (primary) hypertension; M00.9 Pyogenic arthritis, unspecified; Z79.82 Long term (current) use of aspirin; Z79.4 Long term (current) use of insulin; Z79.899 Other long term (current) drug therapy; Z96.653 Presence of artificial knee joint, bilateral; Z85.89 Personal history of malignant neoplasm of other organs and systems; Z86.19 Personal history of other infectious and parasitic diseases; Y83.8 Other surgical procedures as the cause of abnormal reaction of the patient, or of later complication, without mention of misadventure at the time of the procedure
CPT/HCPCS: 36416; 82948; A6223; G0463; A6021; A6446

== ENCOUNTER 2018-07-09 10:04 | Outpatient (CLI) | payer MEDICARE, MEDICAID ==
[2018-07-09] MEDS ORDERED: LIDOcaine/PRILOcaine 5gm cream TP ONE (11:20)
--- NOTE | 2018-07-09 14:30 | NUR ---
Patient ambulated independently from [facility] and was admitted to outpatient wound care for physician visit with Peter Carey MD. Dressing removed, wound cleansed and Emla cream applied per order. Patient assessed for changes in conditions, medications and medical history. Dr. Carey at bedside accompanied by RN. Wound assessed and no debridement was done. Plan of care discussed with patient. Dressings placed per MD orders. Patient instructed on the signs and symptoms of infection and to call the Wound Center if any occur or to go to the ED if we are closed: Increased pain in wound Increase in drainage from the wound Redness in the skin surrounding the wound Bleeding from the wound Temperature of 101 or greater Patient instructed that elevated blood sugars delay healing of the wound and can cause further complications including but not limited to amputation of toes or feet. Patient instructed that the weight of their body puts a large amount of pressure on their wounds. This pressure keeps the new tissue from growing and inhibits new blood vessels from forming. Explained that, if they continue to bear weight on a body part that has a wound, the time it takes to heal the wound increases, the wound may get worse or the wound may not heal at all. Patient verbalized understanding of all discharge instructions and plan of care and ambulated independently out to [facility] in stable condition with no sign or symptom of distress at time of discharge. Addendum: 07/09/18 at 1437 by Marva Ramos RN Amended: Links added.
== END 2018-07-09 11:56 | disposition home or self-care (01) ==
LOC: WOUND CARE 10:04
PROVIDERS: ATTEND Surgery
DX: T81.89XD Other complications of procedures, not elsewhere classified, subsequent encounter (principal); E11.622 Type 2 diabetes mellitus with other skin ulcer; L97.322 Non-pressure chronic ulcer of left ankle with fat layer exposed; E11.42 Type 2 diabetes mellitus with diabetic polyneuropathy; E11.65 Type 2 diabetes mellitus with hyperglycemia; I10 Essential (primary) hypertension; M00.9 Pyogenic arthritis, unspecified; Z79.82 Long term (current) use of aspirin; Z79.4 Long term (current) use of insulin; Z79.899 Other long term (current) drug therapy; Z96.653 Presence of artificial knee joint, bilateral; Z85.89 Personal history of malignant neoplasm of other organs and systems; Z86.19 Personal history of other infectious and parasitic diseases; Y83.8 Other surgical procedures as the cause of abnormal reaction of the patient, or of later complication, without mention of misadventure at the time of the procedure
CPT/HCPCS: 36416; 82948; A6222; G0463; A6021; A6212

== ENCOUNTER 2018-07-15 09:20 | Day surgery (SDC) | payer MEDICARE, MEDICAID ==
[2018-07-15] MEDS ORDERED: LIDOcaine/PRILOcaine 5gm cream TP ONE (09:44)
[2018-07-15] MEDS ORDERED: nystatin/triamcinolone cream 15gm TP ONE (10:06)
--- NOTE | 2018-07-15 11:18 | NUR ---
Patient ambulated independently from [facility] and was admitted to outpatient wound care for physician visit with Peter Carey MD. Dressing removed, wound cleansed and Emla cream applied per order. Patient assessed for changes in conditions, medications and medical history. Dr. Carey at bedside accompanied by RN. Wound assessed, time out performed by MD/RN. Wound debrided as detailed in the physician progress/procedure note. Plan of care discussed with patient. Dressings placed per MD orders. Patient instructed on the signs and symptoms of infection and to call the Wound Center if any occur or to go to the ED if we are closed: Increased pain in wound Increase in drainage from the wound Redness in the skin surrounding the wound Bleeding from the wound Temperature of 101 or greater Patient instructed that elevated blood sugars delay healing of the wound and can cause further complications including but not limited to amputation of toes or feet. Patient instructed that the weight of their body puts a large amount of pressure on their wounds. This pressure keeps the new tissue from growing and inhibits new blood vessels from forming. Explained that, if they continue to bear weight on a body part that has a wound, the time it takes to heal the wound increases, the wound may get worse or the wound may not heal at all. Patient verbalized understanding of all discharge instructions and plan of care and ambulated independently out to [facility] in stable condition with no sign or symptom of distress at time of discharge. Addendum: 07/15/18 at 1121 by Marva Ramos RN Amended: Links added.
== END 2018-07-15 10:28 | disposition home or self-care (01) ==
LOC: WOUND CARE 09:20
PROVIDERS: ATTEND Surgery
DX: T81.89XD Other complications of procedures, not elsewhere classified, subsequent encounter (principal); E11.622 Type 2 diabetes mellitus with other skin ulcer; L97.322 Non-pressure chronic ulcer of left ankle with fat layer exposed; E11.42 Type 2 diabetes mellitus with diabetic polyneuropathy; E11.65 Type 2 diabetes mellitus with hyperglycemia; I10 Essential (primary) hypertension; M00.9 Pyogenic arthritis, unspecified; Z79.82 Long term (current) use of aspirin; Z79.4 Long term (current) use of insulin; Z79.899 Other long term (current) drug therapy; Z96.653 Presence of artificial knee joint, bilateral; Z85.89 Personal history of malignant neoplasm of other organs and systems; Z86.19 Personal history of other infectious and parasitic diseases; Y83.8 Other surgical procedures as the cause of abnormal reaction of the patient, or of later complication, without mention of misadventure at the time of the procedure
CPT/HCPCS: 36416; 82948; 97597; A6222; A6021; A6213

== ENCOUNTER 2018-07-18 09:20 | Day surgery (SDC) | payer MEDICARE, MEDICAID ==
[2018-07-18] MEDS ORDERED: LIDOcaine/PRILOcaine 5gm cream TP ONE (09:57)
--- NOTE | 2018-07-18 11:15 | NUR ---
Patient ambulated independently from [facility] and was admitted to outpatient wound care for physician visit with Peter Carey MD. Dressing removed, wound cleansed and Emla cream applied per order. Patient assessed for changes in conditions, medications and medical history. 1025 - blood glucose 261. Patient instructed that elevated blood sugars delay healing of the wound and can cause further complications including but not limited to amputation of toes or feet. 1045 - Dr. Carey at bedside accompanied by RN. Wound assessed, time out performed by MD/RN. Wound debrided and procedure performed as detailed in the physician progress/procedure note. Plan of care discussed with patient. Dressings placed per MD orders. Patient instructed on the signs and symptoms of infection and to call the Wound Center if any occur or to go to the ED if we are closed: Increased pain in wound Increase in drainage from the wound Redness in the skin surrounding the wound Bleeding from the wound Temperature of 101 or greater Patient instructed that the weight of their body puts a large amount of pressure on their wounds. This pressure keeps the new tissue from growing and inhibits new blood vessels from forming. Explained that, if they continue to bear weight on a body part that has a wound, the time it takes to heal the wound increases, the wound may get worse or the wound may not heal at all. Patient verbalized understanding of all discharge instructions and plan of care and ambulated independently out to [facility] in stable condition with no sign or symptom of distress at time of discharge.
== END 2018-07-18 12:05 | disposition home or self-care (01) ==
LOC: WOUND CARE 09:20
PROVIDERS: ATTEND Surgery
DX: T81.89XD Other complications of procedures, not elsewhere classified, subsequent encounter (principal); E11.622 Type 2 diabetes mellitus with other skin ulcer; L97.322 Non-pressure chronic ulcer of left ankle with fat layer exposed; E11.42 Type 2 diabetes mellitus with diabetic polyneuropathy; E11.65 Type 2 diabetes mellitus with hyperglycemia; I10 Essential (primary) hypertension; M00.9 Pyogenic arthritis, unspecified; Z79.82 Long term (current) use of aspirin; Z79.4 Long term (current) use of insulin; Z79.899 Other long term (current) drug therapy; Z96.653 Presence of artificial knee joint, bilateral; Z85.89 Personal history of malignant neoplasm of other organs and systems; Z86.19 Personal history of other infectious and parasitic diseases; Y83.8 Other surgical procedures as the cause of abnormal reaction of the patient, or of later complication, without mention of misadventure at the time of the procedure
CPT/HCPCS: 15271; 36416; 82948; A6209; A6222; A6223; Q4133; A6021; A6250; A6446

== ENCOUNTER 2018-07-22 09:36 | Outpatient (CLI) | payer MEDICARE, MEDICAID ==
--- NOTE | 2018-07-22 10:50 | NUR ---
Patient ambulated independently from [facility] and was admitted to outpatient wound care for physician visit with Peter Carey MD. Dressing removed, wound cleansed. Patient assessed for changes in conditions, medications and medical history. 0956 - blood glucose 198. Patient instructed that elevated blood sugars delay healing of the wound and can cause further complications including but not limited to amputation of toes or feet. 1010 - Dr. Carey at bedside accompanied by RN. Wound assessed, time out performed by MD/RN. Wound debrided as detailed in the physician progress/procedure note. Plan of care discussed with patient. Dressings placed per MD orders. Patient instructed on the signs and symptoms of infection and to call the Wound Center if any occur or to go to the ED if we are closed: Increased pain in wound Increase in drainage from the wound Redness in the skin surrounding the wound Bleeding from the wound Temperature of 101 or greater Patient instructed that the weight of their body puts a large amount of pressure on their wounds. This pressure keeps the new tissue from growing and inhibits new blood vessels from forming. Explained that, if they continue to bear weight on a body part that has a wound, the time it takes to heal the wound increases, the wound may get worse or the wound may not heal at all. Patient verbalized understanding of all discharge instructions and plan of care and ambulated independently out to [facility] in stable condition with no sign or symptom of distress at time of discharge.
== END 2018-07-22 11:00 | disposition home or self-care (01) ==
LOC: WOUND CARE 09:36
PROVIDERS: ATTEND Surgery
DX: T81.89XD Other complications of procedures, not elsewhere classified, subsequent encounter (principal); E11.622 Type 2 diabetes mellitus with other skin ulcer; L97.322 Non-pressure chronic ulcer of left ankle with fat layer exposed; E11.42 Type 2 diabetes mellitus with diabetic polyneuropathy; E11.65 Type 2 diabetes mellitus with hyperglycemia; I10 Essential (primary) hypertension; M00.9 Pyogenic arthritis, unspecified; Z79.82 Long term (current) use of aspirin; Z79.4 Long term (current) use of insulin; Z79.899 Other long term (current) drug therapy; Z96.653 Presence of artificial knee joint, bilateral; Z85.89 Personal history of malignant neoplasm of other organs and systems; Z86.19 Personal history of other infectious and parasitic diseases; Y83.8 Other surgical procedures as the cause of abnormal reaction of the patient, or of later complication, without mention of misadventure at the time of the procedure
CPT/HCPCS: 36416; 82948; 97607; A6209; A6222; A6446

== ENCOUNTER 2018-07-25 09:20 | Outpatient (CLI) | payer MEDICARE, MEDICAID ==
--- NOTE | 2018-07-25 11:00 | NUR ---
Patient ambulated independently from [facility] and was admitted to outpatient wound care for physician visit with Peter Carey MD. Dressing removed, wound cleansed. Patient assessed for changes in conditions, medications and medical history. 0943 -blood glucose 248. Patient instructed that elevated blood sugars delay healing of the wound and can cause further complications including but not limited to amputation of toes or feet. 1000 - Dr. Carey at bedside accompanied by RN. Wound assessed by MD, orders written. Plan of care discussed with patient. Dressings placed per MD orders. Patient instructed on the signs and symptoms of infection and to call the Wound Center if any occur or to go to the ED if we are closed: Increased pain in wound Increase in drainage from the wound Redness in the skin surrounding the wound Bleeding from the wound Temperature of 101 or greater Patient instructed that the weight of their body puts a large amount of pressure on their wounds. This pressure keeps the new tissue from growing and inhibits new blood vessels from forming. Explained that, if they continue to bear weight on a body part that has a wound, the time it takes to heal the wound increases, the wound may get worse or the wound may not heal at all. Patient verbalized understanding of all discharge instructions and plan of care and ambulated independently out to [facility] in stable condition with no sign or symptom of distress at time of discharge.
== END 2018-07-25 11:05 | disposition home or self-care (01) ==
LOC: WOUND CARE 09:20 → EDSTATUS 09:30 → WOUND CARE 11:05
PROVIDERS: ATTEND Surgery
DX: T81.89XD Other complications of procedures, not elsewhere classified, subsequent encounter (principal); E11.622 Type 2 diabetes mellitus with other skin ulcer; L97.322 Non-pressure chronic ulcer of left ankle with fat layer exposed; E11.65 Type 2 diabetes mellitus with hyperglycemia; E11.42 Type 2 diabetes mellitus with diabetic polyneuropathy; I10 Essential (primary) hypertension; M00.9 Pyogenic arthritis, unspecified; Z79.82 Long term (current) use of aspirin; Z79.4 Long term (current) use of insulin; Z79.899 Other long term (current) drug therapy; Z96.653 Presence of artificial knee joint, bilateral; Z85.89 Personal history of malignant neoplasm of other organs and systems; Z86.19 Personal history of other infectious and parasitic diseases; Y83.8 Other surgical procedures as the cause of abnormal reaction of the patient, or of later complication, without mention of misadventure at the time of the procedure
CPT/HCPCS: 36416; 82948; 97607; A6222; A6021; A6446

== ENCOUNTER 2018-07-29 09:30 | Day surgery (SDC) | payer MEDICARE, MEDICAID ==
[2018-07-29] MEDS ORDERED: LIDOcaine/PRILOcaine 5gm cream TP ONE (09:49)
--- NOTE | 2018-07-29 11:00 | NUR ---
Patient ambulated independently from [facility] and was admitted to outpatient wound care for physician visit with Peter Carey MD. Dressing removed, wound cleansed and Emla cream applied per order. Patient assessed for changes in conditions, medications and medical history. 953 - blood glucose 252. Patient instructed that elevated blood sugars delay healing of the wound and can cause further complications including but not limited to amputation of toes or feet. Dr. Carey at bedside accompanied by RN. Wound assessed by MD, orders written. Plan of care discussed with patient. Dressings placed per MD orders. Patient instructed on the signs and symptoms of infection and to call the Wound Center if any occur or to go to the ED if we are closed: Increased pain in wound Increase in drainage from the wound Redness in the skin surrounding the wound Bleeding from the wound Temperature of 101 or greater Patient instructed that the weight of their body puts a large amount of pressure on their wounds. This pressure keeps the new tissue from growing and inhibits new blood vessels from forming. Explained that, if they continue to bear weight on a body part that has a wound, the time it takes to heal the wound increases, the wound may get worse or the wound may not heal at all. Patient verbalized understanding of all discharge instructions and plan of care and ambulated independently out to [facility] in stable condition with no sign or symptom of distress at time of discharge.
== END 2018-07-29 10:57 | disposition home or self-care (01) ==
LOC: WOUND CARE 09:30
PROVIDERS: ATTEND Surgery
DX: T81.89XD Other complications of procedures, not elsewhere classified, subsequent encounter (principal); E11.622 Type 2 diabetes mellitus with other skin ulcer; L97.322 Non-pressure chronic ulcer of left ankle with fat layer exposed; E11.65 Type 2 diabetes mellitus with hyperglycemia; E11.42 Type 2 diabetes mellitus with diabetic polyneuropathy; I10 Essential (primary) hypertension; M00.9 Pyogenic arthritis, unspecified; Z79.82 Long term (current) use of aspirin; Z79.4 Long term (current) use of insulin; Z79.899 Other long term (current) drug therapy; Z96.653 Presence of artificial knee joint, bilateral; Z85.89 Personal history of malignant neoplasm of other organs and systems; Z86.19 Personal history of other infectious and parasitic diseases; Y83.8 Other surgical procedures as the cause of abnormal reaction of the patient, or of later complication, without mention of misadventure at the time of the procedure
CPT/HCPCS: 36416; 82948; 97597; A6222; A6021

== ENCOUNTER 2018-08-01 09:25 | Day surgery (SDC) | payer MEDICARE, MEDICAID ==
--- NOTE | 2018-08-01 14:09 | NUR ---
Patient ambulated independently from [facility] and was admitted to outpatient wound care for physician visit with Peter Carey MD. Dressing removed, wound cleansed and patient assessed for changes in conditions, medications and medical history. Dr. Carey at bedside accompanied by RN. Wound assessed, time out performed by MD/RN. Wound debrided as detailed in the physician progress/procedure note. Plan of care discussed with patient. Dressings placed per MD orders. Patient instructed on the signs and symptoms of infection and to call the Wound Center if any occur or to go to the ED if we are closed: Increased pain in wound Increase in drainage from the wound Redness in the skin surrounding the wound Bleeding from the wound Temperature of 101 or greater Patient instructed that elevated blood sugars delay healing of the wound and can cause further complications including but not limited to amputation of toes or feet. Patient instructed that the weight of their body puts a large amount of pressure on their wounds. This pressure keeps the new tissue from growing and inhibits new blood vessels from forming. Explained that, if they continue to bear weight on a body part that has a wound, the time it takes to heal the wound increases, the wound may get worse or the wound may not heal at all. Patient verbalized understanding of all discharge instructions and plan of care and ambulated independently out to [facility] in stable condition with no sign or symptom of distress at time of discharge Addendum: 08/01/18 at 1414 by Marva Ramos RN Amended: Links added.
== END 2018-08-01 11:30 | disposition home or self-care (01) ==
LOC: WOUND CARE 09:25
PROVIDERS: ATTEND Surgery
DX: T81.89XD Other complications of procedures, not elsewhere classified, subsequent encounter (principal); E11.622 Type 2 diabetes mellitus with other skin ulcer; L97.322 Non-pressure chronic ulcer of left ankle with fat layer exposed; E11.65 Type 2 diabetes mellitus with hyperglycemia; E11.42 Type 2 diabetes mellitus with diabetic polyneuropathy; I10 Essential (primary) hypertension; M00.9 Pyogenic arthritis, unspecified; Z79.82 Long term (current) use of aspirin; Z79.4 Long term (current) use of insulin; Z79.899 Other long term (current) drug therapy; Z96.653 Presence of artificial knee joint, bilateral; Z85.89 Personal history of malignant neoplasm of other organs and systems; Z86.19 Personal history of other infectious and parasitic diseases; Y83.8 Other surgical procedures as the cause of abnormal reaction of the patient, or of later complication, without mention of misadventure at the time of the procedure
CPT/HCPCS: 15271; 36416; 82948; A6222; Q4133

== ENCOUNTER 2018-08-05 09:33 | Outpatient (CLI) | payer MEDICARE, MEDICAID ==
--- NOTE | 2018-08-05 12:30 | NUR ---
Patient ambulated independently from [facility] and was admitted to outpatient wound care for physician visit with Peter Carey MD. Dressing removed, wound cleansed. Patient assessed for changes in conditions, medications and medical history. 0955 - blood glucose 131. Patient instructed that elevated blood sugars delay healing of the wound and can cause further complications including but not limited to amputation of toes or feet. 1145 - Dr. Carey at bedside accompanied by RN. Wound assessed by MD, orders written. Plan of care discussed with patient. Dressings placed per MD orders. Patient instructed on the signs and symptoms of infection and to call the Wound Center if any occur or to go to the ED if we are closed: Increased pain in wound Increase in drainage from the wound Redness in the skin surrounding the wound Bleeding from the wound Temperature of 101 or greater Patient instructed that the weight of their body puts a large amount of pressure on their wounds. This pressure keeps the new tissue from growing and inhibits new blood vessels from forming. Explained that, if they continue to bear weight on a body part that has a wound, the time it takes to heal the wound increases, the wound may get worse or the wound may not heal at all. Patient verbalized understanding of all discharge instructions and plan of care and ambulated independently out to [facility] in stable condition with no sign or symptom of distress at time of discharge.
== END 2018-08-05 11:22 | disposition home or self-care (01) ==
LOC: WOUND CARE 09:33
PROVIDERS: ATTEND Surgery
DX: T81.89XD Other complications of procedures, not elsewhere classified, subsequent encounter (principal); E11.622 Type 2 diabetes mellitus with other skin ulcer; L97.322 Non-pressure chronic ulcer of left ankle with fat layer exposed; E11.65 Type 2 diabetes mellitus with hyperglycemia; E11.42 Type 2 diabetes mellitus with diabetic polyneuropathy; I10 Essential (primary) hypertension; M00.9 Pyogenic arthritis, unspecified; Z79.82 Long term (current) use of aspirin; Z79.4 Long term (current) use of insulin; Z79.899 Other long term (current) drug therapy; Z96.653 Presence of artificial knee joint, bilateral; Z85.89 Personal history of malignant neoplasm of other organs and systems; Z86.19 Personal history of other infectious and parasitic diseases; Y83.8 Other surgical procedures as the cause of abnormal reaction of the patient, or of later complication, without mention of misadventure at the time of the procedure
CPT/HCPCS: 36416; 82948; A6209; A6222; G0463; A6446

== ENCOUNTER 2018-08-08 09:08 | Day surgery (SDC) | payer MEDICARE, MEDICAID ==
[2018-08-08] MEDS ORDERED: LIDOcaine/PRILOcaine 5gm cream TP ONE (09:43)
--- NOTE | 2018-08-08 12:40 | NUR ---
Patient ambulated independently from [facility] and was admitted to outpatient wound care for physician visit with Peter Carey MD. Dressing removed, wound cleansed and Emla cream applied per order. Patient assessed for changes in conditions, medications and medical history. Dr. Carey at bedside accompanied by RN. Wound assessed, time out performed by MD/RN. Wound debrided as detailed in the physician progress/procedure note. Plan of care discussed with patient. Dressings placed per MD orders. Patient instructed on the signs and symptoms of infection and to call the Wound Center if any occur or to go to the ED if we are closed: Increased pain in wound Increase in drainage from the wound Redness in the skin surrounding the wound Bleeding from the wound Temperature of 101 or greater Patient instructed that the weight of their body puts a large amount of pressure on their wounds. This pressure keeps the new tissue from growing and inhibits new blood vessels from forming. Explained that, if they continue to bear weight on a body part that has a wound, the time it takes to heal the wound increases, the wound may get worse or the wound may not heal at all. Patient verbalized understanding of all discharge instructions and plan of care and ambulated independently out to [facility] in stable condition with no sign or symptom of distress at time of discharge. Addendum: 08/08/18 at 1241 by Marva Ramos RN Amended: Links added.
== END 2018-08-08 11:20 | disposition home or self-care (01) ==
LOC: WOUND CARE 09:08
PROVIDERS: ATTEND Surgery
DX: T81.89XD Other complications of procedures, not elsewhere classified, subsequent encounter (principal); E11.622 Type 2 diabetes mellitus with other skin ulcer; L97.322 Non-pressure chronic ulcer of left ankle with fat layer exposed; E11.65 Type 2 diabetes mellitus with hyperglycemia; E11.42 Type 2 diabetes mellitus with diabetic polyneuropathy; I10 Essential (primary) hypertension; M00.9 Pyogenic arthritis, unspecified; Z79.82 Long term (current) use of aspirin; Z79.4 Long term (current) use of insulin; Z79.899 Other long term (current) drug therapy; Z96.653 Presence of artificial knee joint, bilateral; Z85.89 Personal history of malignant neoplasm of other organs and systems; Z86.19 Personal history of other infectious and parasitic diseases; Y83.8 Other surgical procedures as the cause of abnormal reaction of the patient, or of later complication, without mention of misadventure at the time of the procedure
CPT/HCPCS: 82948; 97597; A6222; A6021; A6446

== ENCOUNTER 2018-08-12 08:50 | Day surgery (SDC) | payer MEDICARE, MEDICAID ==
[2018-08-12] MEDS ORDERED: LIDOcaine/PRILOcaine 5gm cream TP ONE (09:30)
--- NOTE | 2018-08-12 11:15 | NUR ---
Patient ambulated independently from [facility] and was admitted to outpatient wound care for physician visit with Peter Carey MD. Dressing removed, wound cleansed and Emla cream applied per order. Patient assessed for changes in conditions, medications and medical history. 0916 - blood glucose 219. Patient instructed that elevated blood sugars delay healing of the wound and can cause further complications including but not limited to amputation of toes or feet. 1025 - Dr. Carey at bedside accompanied by RN. Wound assessed, time out performed by MD/RN. Wound debrided as detailed in the physician progress/procedure note. Plan of care discussed with patient. Dressings placed per MD orders. Patient instructed on the signs and symptoms of infection and to call the Wound Center if any occur or to go to the ED if we are closed: Increased pain in wound Increase in drainage from the wound Redness in the skin surrounding the wound Bleeding from the wound Temperature of 101 or greater Patient instructed that the weight of their body puts a large amount of pressure on their wounds. This pressure keeps the new tissue from growing and inhibits new blood vessels from forming. Explained that, if they continue to bear weight on a body part that has a wound, the time it takes to heal the wound increases, the wound may get worse or the wound may not heal at all. Patient verbalized understanding of all discharge instructions and plan of care and ambulated independently out to [facility] in stable condition with no sign or symptom of distress at time of discharge.
== END 2018-08-12 11:37 | disposition home or self-care (01) ==
LOC: WOUND CARE 08:50
PROVIDERS: ATTEND Surgery
DX: T81.89XD Other complications of procedures, not elsewhere classified, subsequent encounter (principal); E11.622 Type 2 diabetes mellitus with other skin ulcer; L97.322 Non-pressure chronic ulcer of left ankle with fat layer exposed; E11.65 Type 2 diabetes mellitus with hyperglycemia; E11.42 Type 2 diabetes mellitus with diabetic polyneuropathy; I10 Essential (primary) hypertension; M00.9 Pyogenic arthritis, unspecified; Z79.82 Long term (current) use of aspirin; Z79.4 Long term (current) use of insulin; Z79.899 Other long term (current) drug therapy; Z96.653 Presence of artificial knee joint, bilateral; Z85.89 Personal history of malignant neoplasm of other organs and systems; Z86.19 Personal history of other infectious and parasitic diseases; Y83.8 Other surgical procedures as the cause of abnormal reaction of the patient, or of later complication, without mention of misadventure at the time of the procedure
CPT/HCPCS: 11042; 82948; 97607; A6209; A6222; A4414; A6021; A6206; A6212

== ENCOUNTER 2018-08-15 09:30 | Day surgery (SDC) | payer MEDICARE, MEDICAID ==
[2018-08-15] MEDS ORDERED: LIDOcaine/PRILOcaine 5gm cream TP ONE (09:42)
--- NOTE | 2018-08-15 11:00 | NUR ---
Patient ambulated independently from [facility] and was admitted to outpatient wound care for physician visit with Peter Carey MD. Dressing removed, wound cleansed and Emla cream applied per order. Patient assessed for changes in conditions, medications and medical history. 0937 - blood glucose 222. Patient instructed that elevated blood sugars delay healing of the wound and can cause further complications including but not limited to amputation of toes or feet. 1010 - Dr. Carey at bedside accompanied by RN. Wound assessed, time out performed by MD/RN. Wound debrided and procedure performed as detailed in the physician progress/procedure note. Plan of care discussed with patient. Dressings placed per MD orders. Patient instructed on the signs and symptoms of infection and to call the Wound Center if any occur or to go to the ED if we are closed: Increased pain in wound Increase in drainage from the wound Redness in the skin surrounding the wound Bleeding from the wound Temperature of 101 or greater Patient instructed that the weight of their body puts a large amount of pressure on their wounds. This pressure keeps the new tissue from growing and inhibits new blood vessels from forming. Explained that, if they continue to bear weight on a body part that has a wound, the time it takes to heal the wound increases, the wound may get worse or the wound may not heal at all. Patient verbalized understanding of all discharge instructions and plan of care and ambulated independently out to [facility] in stable condition with no sign or symptom of distress at time of discharge.
== END 2018-08-15 11:00 | disposition home or self-care (01) ==
LOC: WOUND CARE 09:30
PROVIDERS: ATTEND Surgery
DX: T81.89XD Other complications of procedures, not elsewhere classified, subsequent encounter (principal); E11.622 Type 2 diabetes mellitus with other skin ulcer; L97.322 Non-pressure chronic ulcer of left ankle with fat layer exposed; E11.65 Type 2 diabetes mellitus with hyperglycemia; E11.42 Type 2 diabetes mellitus with diabetic polyneuropathy; I10 Essential (primary) hypertension; M00.9 Pyogenic arthritis, unspecified; Z79.82 Long term (current) use of aspirin; Z79.4 Long term (current) use of insulin; Z79.899 Other long term (current) drug therapy; Z96.653 Presence of artificial knee joint, bilateral; Z85.89 Personal history of malignant neoplasm of other organs and systems; Z86.19 Personal history of other infectious and parasitic diseases; Y83.8 Other surgical procedures as the cause of abnormal reaction of the patient, or of later complication, without mention of misadventure at the time of the procedure
CPT/HCPCS: 15271; 36416; 82948; A6222; Q4133; A6021; A6206; A6212; A6250; A6446

== ENCOUNTER 2018-08-20 09:00 | Outpatient (CLI) | payer MEDICARE, MEDICAID ==
--- NOTE | 2018-08-20 10:30 | NUR ---
Patient ambulated independently from [facility] and was admitted to outpatient wound care for nursing visit under the direct supervision of Peter Carey MD. Dressing removed, wound cleansed. Patient assessed for changes in conditions, medications and medical history. 0923 - blood glucose 172. Patient instructed that elevated blood sugars delay healing of the wound and can cause further complications including but not limited to amputation of toes or feet. Dressings placed per MD orders. Patient instructed on the signs and symptoms of infection and to call the Wound Center if any occur or to go to the ED if we are closed: Increased pain in wound Increase in drainage from the wound Redness in the skin surrounding the wound Bleeding from the wound Temperature of 101 or greater Patient instructed that the weight of their body puts a large amount of pressure on their wounds. This pressure keeps the new tissue from growing and inhibits new blood vessels from forming. Explained that, if they continue to bear weight on a body part that has a wound, the time it takes to heal the wound increases, the wound may get worse or the wound may not heal at all. Patient verbalized understanding of all discharge instructions and plan of care and ambulated independently out to [facility] in stable condition with no sign or symptom of distress at time of discharge.
== END 2018-08-20 10:55 | disposition home or self-care (01) ==
LOC: WOUND CARE 09:00 → EDSTATUS 09:30 → WOUND CARE 10:55
PROVIDERS: ATTEND Surgery
DX: T81.89XD Other complications of procedures, not elsewhere classified, subsequent encounter (principal); E11.622 Type 2 diabetes mellitus with other skin ulcer; L97.322 Non-pressure chronic ulcer of left ankle with fat layer exposed; E11.65 Type 2 diabetes mellitus with hyperglycemia; E11.42 Type 2 diabetes mellitus with diabetic polyneuropathy; I10 Essential (primary) hypertension; M00.9 Pyogenic arthritis, unspecified; Z79.82 Long term (current) use of aspirin; Z79.4 Long term (current) use of insulin; Z79.899 Other long term (current) drug therapy; Z96.653 Presence of artificial knee joint, bilateral; Z85.89 Personal history of malignant neoplasm of other organs and systems; Z86.19 Personal history of other infectious and parasitic diseases; Y83.8 Other surgical procedures as the cause of abnormal reaction of the patient, or of later complication, without mention of misadventure at the time of the procedure
CPT/HCPCS: 36416; 82948; 97607; A6223; A6021; A6212

== ENCOUNTER 2018-08-26 09:12 | Day surgery (SDC) | payer MEDICARE, MEDICAID ==
[2018-08-26] MEDS ORDERED: LIDOcaine/PRILOcaine 5gm cream TP ONE (09:25)
--- NOTE | 2018-08-26 11:00 | NUR ---
Patient ambulated independently from [facility] and was admitted to outpatient wound care for physician visit with Peter Carey MD. Dressing removed, wound cleansed and Emla cream applied per order. Patient assessed for changes in conditions, medications and medical history. 0954 - blood glucose 262. Patient instructed that elevated blood sugars delay healing of the wound and can cause further complications including but not limited to amputation of toes or feet. 1015 - Dr. Carey at bedside accompanied by RN. Wound assessed, time out performed by MD/RN. Wound debrided as detailed in the physician progress/procedure note. Plan of care discussed with patient. Dressings placed per MD orders. Patient instructed on the signs and symptoms of infection and to call the Wound Center if any occur or to go to the ED if we are closed: Increased pain in wound Increase in drainage from the wound Redness in the skin surrounding the wound Bleeding from the wound Temperature of 101 or greater Patient instructed that the weight of their body puts a large amount of pressure on their wounds. This pressure keeps the new tissue from growing and inhibits new blood vessels from forming. Explained that, if they continue to bear weight on a body part that has a wound, the time it takes to heal the wound increases, the wound may get worse or the wound may not heal at all. Patient verbalized understanding of all discharge instructions and plan of care and ambulated independently out to [facility] in stable condition with no sign or symptom of distress at time of discharge.
== END 2018-08-26 16:02 | disposition home or self-care (01) ==
LOC: WOUND CARE 09:12
PROVIDERS: ATTEND Surgery
DX: T81.89XD Other complications of procedures, not elsewhere classified, subsequent encounter (principal); E11.622 Type 2 diabetes mellitus with other skin ulcer; L97.322 Non-pressure chronic ulcer of left ankle with fat layer exposed; E11.65 Type 2 diabetes mellitus with hyperglycemia; E11.42 Type 2 diabetes mellitus with diabetic polyneuropathy; I10 Essential (primary) hypertension; M00.9 Pyogenic arthritis, unspecified; Z79.82 Long term (current) use of aspirin; Z79.4 Long term (current) use of insulin; Z79.899 Other long term (current) drug therapy; Z96.653 Presence of artificial knee joint, bilateral; Z85.89 Personal history of malignant neoplasm of other organs and systems; Z86.19 Personal history of other infectious and parasitic diseases; Y83.8 Other surgical procedures as the cause of abnormal reaction of the patient, or of later complication, without mention of misadventure at the time of the procedure
CPT/HCPCS: 36416; 82948; 97597; A6222; A4456; A6021

== ENCOUNTER 2018-09-01 09:20 | Day surgery (SDC) | payer MEDICARE, MEDICAID ==
[2018-09-01] MEDS ORDERED: LIDOcaine/PRILOcaine 5gm cream TP ONE (10:51)
--- NOTE | 2018-09-01 12:30 | NUR ---
Patient ambulated independently from [facility] and was admitted to outpatient wound care for physician visit with Peter Carey MD. Dressing removed, wound cleansed and Emla cream applied per order. Patient assessed for changes in conditions, medications and medical history. 1031 - blood glucose 206. Patient instructed that elevated blood sugars delay healing of the wound and can cause further complications including but not limited to amputation of toes or feet. 1135 - Dr. Carey at bedside accompanied by RN. Wound assessed, time out performed by MD/RN. Wound debrided as detailed in the physician progress/procedure note. Plan of care discussed with patient. Dressings placed per MD orders. Patient instructed on the signs and symptoms of infection and to call the Wound Center if any occur or to go to the ED if we are closed: Increased pain in wound Increase in drainage from the wound Redness in the skin surrounding the wound Bleeding from the wound Temperature of 101 or greater Patient instructed that the weight of their body puts a large amount of pressure on their wounds. This pressure keeps the new tissue from growing and inhibits new blood vessels from forming. Explained that, if they continue to bear weight on a body part that has a wound, the time it takes to heal the wound increases, the wound may get worse or the wound may not heal at all. Patient verbalized understanding of all discharge instructions and plan of care and ambulated independently out to [facility] in stable condition with no sign or symptom of distress at time of discharge.
== END 2018-09-01 12:18 | disposition home or self-care (01) ==
LOC: WOUND CARE 09:20
PROVIDERS: ATTEND Surgery
DX: T81.89XD Other complications of procedures, not elsewhere classified, subsequent encounter (principal); E11.622 Type 2 diabetes mellitus with other skin ulcer; L97.322 Non-pressure chronic ulcer of left ankle with fat layer exposed; E11.65 Type 2 diabetes mellitus with hyperglycemia; E11.42 Type 2 diabetes mellitus with diabetic polyneuropathy; I10 Essential (primary) hypertension; M00.9 Pyogenic arthritis, unspecified; Z79.82 Long term (current) use of aspirin; Z79.4 Long term (current) use of insulin; Z79.899 Other long term (current) drug therapy; Z96.653 Presence of artificial knee joint, bilateral; Z85.89 Personal history of malignant neoplasm of other organs and systems; Z86.19 Personal history of other infectious and parasitic diseases; Y83.8 Other surgical procedures as the cause of abnormal reaction of the patient, or of later complication, without mention of misadventure at the time of the procedure
CPT/HCPCS: 11042; 36416; 82948; 97607; A6209; A6222; A6223; A6021; A6212

== ENCOUNTER 2018-09-05 09:00 | Outpatient (CLI) | payer MEDICARE, MEDICAID ==
--- NOTE | 2018-09-05 11:24 | NUR ---
Patient ambulated independently from [facility] and was admitted to outpatient wound care for nursing visit under direct supervision of . Dressings and snap vac removed, wound cleansed and patient assessed for changes in conditions, medications and medical history. Dressings and wound vac reapplied per physician orders. Patient instructed on the signs and symptoms of infection and to call the Wound Center if any occur or to go to the ED if we are closed: Increased pain in wound Increase in drainage from the wound Redness in the skin surrounding the wound Bleeding from the wound Temperature of 101 or greater Patient instructed that elevated blood sugars delay healing of the wound and can cause further complications including but not limited to amputation of toes or feet. Patient instructed that the weight of their body puts a large amount of pressure on their wounds. This pressure keeps the new tissue from growing and inhibits new blood vessels from forming. Explained that, if they continue to bear weight on a body part that has a wound, the time it takes to heal the wound increases, the wound may get worse or the wound may not heal at all. Patient verbalized understanding of all discharge instructions and plan of care and ambulated independently out to [facility] in stable condition with no sign or symptom of distress at time of discharge. Addendum: 09/05/18 at 1126 by Marva Ramos RN Amended: Links added.
== END 2018-09-05 10:30 | disposition home or self-care (01) ==
LOC: WOUND CARE 09:00 → EDSTATUS 09:30 → WOUND CARE 10:30
PROVIDERS: ATTEND Surgery
DX: T81.89XD Other complications of procedures, not elsewhere classified, subsequent encounter (principal); E11.622 Type 2 diabetes mellitus with other skin ulcer; L97.322 Non-pressure chronic ulcer of left ankle with fat layer exposed; E11.65 Type 2 diabetes mellitus with hyperglycemia; E11.42 Type 2 diabetes mellitus with diabetic polyneuropathy; I10 Essential (primary) hypertension; M00.9 Pyogenic arthritis, unspecified; Z79.82 Long term (current) use of aspirin; Z79.4 Long term (current) use of insulin; Z79.899 Other long term (current) drug therapy; Z96.653 Presence of artificial knee joint, bilateral; Z85.89 Personal history of malignant neoplasm of other organs and systems; Z86.19 Personal history of other infectious and parasitic diseases; Y83.8 Other surgical procedures as the cause of abnormal reaction of the patient, or of later complication, without mention of misadventure at the time of the procedure
CPT/HCPCS: 36416; 82948; 97607; A6222; A6021

== ENCOUNTER 2018-09-10 09:30 | Day surgery (SDC) | payer MEDICARE, MEDICAID ==
[2018-09-10] MEDS ORDERED: LIDOcaine/PRILOcaine 5gm cream TP ONE (09:59)
--- NOTE | 2018-09-10 11:00 | NUR ---
Patient ambulated independently from [facility] and was admitted to outpatient wound care for physician visit with Peter Carey MD. Dressing removed, wound cleansed. Patient assessed for changes in conditions, medications and medical history. 1019 - blood glucose 263. Patient instructed that elevated blood sugars delay healing of the wound and can cause further complications including but not limited to amputation of toes or feet. 1015 - Dr. Carey at bedside accompanied by RN. Wound assessed, time out performed by MD/RN. Wound debrided and procedure performed as detailed in the physician progress/procedure note. Plan of care discussed with patient. Dressings placed per MD orders. Xray to bedside. Patient instructed on the signs and symptoms of infection and to call the Wound Center if any occur or to go to the ED if we are closed: Increased pain in wound Increase in drainage from the wound Redness in the skin surrounding the wound Bleeding from the wound Temperature of 101 or greater Patient instructed that the weight of their body puts a large amount of pressure on their wounds. This pressure keeps the new tissue from growing and inhibits new blood vessels from forming. Explained that, if they continue to bear weight on a body part that has a wound, the time it takes to heal the wound increases, the wound may get worse or the wound may not heal at all. Patient verbalized understanding of all discharge instructions and plan of care and ambulated independently out to [facility] in stable condition with no sign or symptom of distress at time of discharge.
== END 2018-09-10 11:23 | disposition home or self-care (01) ==
LOC: WOUND CARE 09:30
PROVIDERS: ATTEND Surgery
DX: T81.89XD Other complications of procedures, not elsewhere classified, subsequent encounter (principal); E11.622 Type 2 diabetes mellitus with other skin ulcer; L97.322 Non-pressure chronic ulcer of left ankle with fat layer exposed; E11.65 Type 2 diabetes mellitus with hyperglycemia; E11.42 Type 2 diabetes mellitus with diabetic polyneuropathy; I10 Essential (primary) hypertension; M00.9 Pyogenic arthritis, unspecified; Z79.82 Long term (current) use of aspirin; Z79.4 Long term (current) use of insulin; Z79.899 Other long term (current) drug therapy; Z96.653 Presence of artificial knee joint, bilateral; Z85.89 Personal history of malignant neoplasm of other organs and systems; Z86.19 Personal history of other infectious and parasitic diseases; Y83.8 Other surgical procedures as the cause of abnormal reaction of the patient, or of later complication, without mention of misadventure at the time of the procedure
CPT/HCPCS: 15271; 36416; 73610; 82948; A6209; A6222; Q4196; A6250; A6446

== ENCOUNTER 2018-10-07 09:10 | Day surgery (SDC) | payer MEDICARE, MEDICAID ==
[2018-10-07] MEDS ORDERED: nystatin/triamcinolone cream 15gm TP ONE (10:14)
--- NOTE | 2018-10-07 11:36 | NUR ---
Patient ambulated independently from [facility] and was admitted to outpatient wound care for physician visit with Peter Carey MD. Dressing removed, wound cleansed and lidocaine applied per order. Patient assessed for changes in conditions, medications and medical history. Dr. Carey at bedside accompanied by RN. Wound assessed, time out performed by MD/RN. Wound debrided as detailed in the physician progress/procedure note. Plan of care discussed with patient. Dressings placed per MD orders. Patient instructed on the signs and symptoms of infection and to call the Wound Center if any occur or to go to the ED if we are closed: Increased pain in wound Increase in drainage from the wound Redness in the skin surrounding the wound Bleeding from the wound Temperature of 101 or greater Patient instructed that elevated blood sugars delay healing of the wound and can cause further complications including but not limited to amputation of toes or feet. Patient instructed that the weight of their body puts a large amount of pressure on their wounds. This pressure keeps the new tissue from growing and inhibits new blood vessels from forming. Explained that, if they continue to bear weight on a body part that has a wound, the time it takes to heal the wound increases, the wound may get worse or the wound may not heal at all. Patient verbalized understanding of all discharge instructions and plan of care and ambulated independently out to [facility] in stable condition with no sign or symptom of distress at time of discharge. Addendum: 10/07/18 at 1139 by Marva Ramos RN Amended: Links added.
== END 2018-10-07 10:30 | disposition home or self-care (01) ==
LOC: WOUND CARE 09:10
PROVIDERS: ATTEND Surgery
DX: T81.89XD Other complications of procedures, not elsewhere classified, subsequent encounter (principal); E11.622 Type 2 diabetes mellitus with other skin ulcer; L97.322 Non-pressure chronic ulcer of left ankle with fat layer exposed; E11.65 Type 2 diabetes mellitus with hyperglycemia; E11.42 Type 2 diabetes mellitus with diabetic polyneuropathy; I10 Essential (primary) hypertension; M00.9 Pyogenic arthritis, unspecified; Z79.82 Long term (current) use of aspirin; Z79.4 Long term (current) use of insulin; Z79.899 Other long term (current) drug therapy; Z96.653 Presence of artificial knee joint, bilateral; Z85.89 Personal history of malignant neoplasm of other organs and systems; Z86.19 Personal history of other infectious and parasitic diseases; Y83.8 Other surgical procedures as the cause of abnormal reaction of the patient, or of later complication, without mention of misadventure at the time of the procedure
CPT/HCPCS: 15271; 36416; 82948; A6209; A6222; J7999; Q4133; 29581; A6250

== ENCOUNTER 2018-10-14 09:10 | Outpatient (CLI) | payer MEDICARE, MEDICAID ==
[~2018-10-14 09:10] MED LIST changes: -GLIM1TAB46 PO; +GLIM1TAB6 PO
--- NOTE | 2018-10-14 10:40 | NUR ---
Patient ambulated independently from [facility] and was admitted to outpatient wound care for physician visit. Dressings removed, wound cleansed. Patient assessment completed with review of patient's medical history and current medications. Blood Glucose= 297 @ 0920 1000-Dr. Carey at bedside accompanied by RN. Wound assessed, time-out performed by MD/RN. Wound debrided as detailed in the physician progress/procedure note. Plan of care discussed with patient. Dressings placed per MD orders. Patient instructed on the signs and symptoms of infection and to call the Wound Center if any occur or to go to the ED if we are closed: Increased pain in the wound Increase in drainage from the wound Redness in the skin surrounding the wound Bleeding from the wound Temperature of 101F or greater Patient instructed that the weight of their body puts a large amount of pressure on their wounds. This pressure keeps the new tissue from growing and inhibits new blood vessels from forming. Explained that, if they continue to bear weight on a body part that has a wound, the time it takes to heal the wound increases, the wound may get worse, or the wound may not heal at all. Patient verbalized understanding of all discharge instructions and plan of care. Patient ambulated independently out to [facility] in stable condition with no signs or symptoms of distress at time of discharge.
== END 2018-10-14 10:42 | disposition home or self-care (01) ==
LOC: WOUND CARE 09:10 → EDSTATUS 09:30 → WOUND CARE 10:42
PROVIDERS: ATTEND Surgery
DX: T81.89XD Other complications of procedures, not elsewhere classified, subsequent encounter (principal); E11.622 Type 2 diabetes mellitus with other skin ulcer; L97.322 Non-pressure chronic ulcer of left ankle with fat layer exposed; E11.65 Type 2 diabetes mellitus with hyperglycemia; E11.42 Type 2 diabetes mellitus with diabetic polyneuropathy; I10 Essential (primary) hypertension; M00.9 Pyogenic arthritis, unspecified; Z79.82 Long term (current) use of aspirin; Z79.4 Long term (current) use of insulin; Z79.899 Other long term (current) drug therapy; Z96.653 Presence of artificial knee joint, bilateral; Z85.89 Personal history of malignant neoplasm of other organs and systems; Z86.19 Personal history of other infectious and parasitic diseases; Y83.8 Other surgical procedures as the cause of abnormal reaction of the patient, or of later complication, without mention of misadventure at the time of the procedure
CPT/HCPCS: 36416; 82948; A6222; G0463; A4663

== ENCOUNTER 2018-10-21 09:10 | Outpatient (CLI) | payer MEDICARE, MEDICAID ==
[2018-10-21] MEDS ORDERED: LIDOcaine 2% 5ml jelly ONE (09:50)
--- NOTE | 2018-10-21 11:15 | NUR ---
Patient ambulated independently from [facility] and was admitted to outpatient wound care for physician visit with Peter Carey MD. Dressing removed, wound cleansed and lidocaine applied per order. Patient assessed for changes in conditions, medications and medical history. 0944 - blood glucose 201. Patient instructed that elevated blood sugars delay healing of the wound and can cause further complications including but not limited to amputation of toes or feet. 1034 - Dr. Carey at bedside accompanied by RN. Wound assessed by MD, orders written. Plan of care discussed with patient. Dressings placed per MD orders. Patient instructed on the signs and symptoms of infection and to call the Wound Center if any occur or to go to the ED if we are closed: Increased pain in wound Increase in drainage from the wound Redness in the skin surrounding the wound Bleeding from the wound Temperature of 101 or greater Patient instructed that the weight of their body puts a large amount of pressure on their wounds. This pressure keeps the new tissue from growing and inhibits new blood vessels from forming. Explained that, if they continue to bear weight on a body part that has a wound, the time it takes to heal the wound increases, the wound may get worse or the wound may not heal at all. Patient verbalized understanding of all discharge instructions and plan of care and ambulated independently out to [facility] in stable condition with no sign or symptom of distress at time of discharge.
== END 2018-10-21 11:14 | disposition home or self-care (01) ==
LOC: WOUND CARE 09:10 → EDSTATUS 09:30 → WOUND CARE 11:14
PROVIDERS: ATTEND Surgery
DX: T81.89XD Other complications of procedures, not elsewhere classified, subsequent encounter (principal); E11.622 Type 2 diabetes mellitus with other skin ulcer; L97.322 Non-pressure chronic ulcer of left ankle with fat layer exposed; E11.65 Type 2 diabetes mellitus with hyperglycemia; E11.42 Type 2 diabetes mellitus with diabetic polyneuropathy; I10 Essential (primary) hypertension; M00.9 Pyogenic arthritis, unspecified; Z79.82 Long term (current) use of aspirin; Z79.4 Long term (current) use of insulin; Z79.899 Other long term (current) drug therapy; Z96.653 Presence of artificial knee joint, bilateral; Z85.89 Personal history of malignant neoplasm of other organs and systems; Z86.19 Personal history of other infectious and parasitic diseases; Y83.8 Other surgical procedures as the cause of abnormal reaction of the patient, or of later complication, without mention of misadventure at the time of the procedure
CPT/HCPCS: 36416; 82948; A6222; G0463; A4663; A6021

== ENCOUNTER 2018-10-29 09:15 | Outpatient (CLI) | payer MEDICARE, MEDICAID | END 2018-10-29 11:25 | disposition home or self-care (01) | LOC: WOUND CARE 09:15 → EDSTATUS 09:30 → WOUND CARE 11:25 | PROVIDERS: ATTEND Surgery | DX: T81.89XD Other complications of procedures, not elsewhere classified, subsequent encounter (principal); E11.622 Type 2 diabetes mellitus with other skin ulcer; L97.322 Non-pressure chronic ulcer of left ankle with fat layer exposed; E11.65 Type 2 diabetes mellitus with hyperglycemia; E11.42 Type 2 diabetes mellitus with diabetic polyneuropathy; I10 Essential (primary) hypertension; M00.9 Pyogenic arthritis, unspecified; Z79.82 Long term (current) use of aspirin; Z79.4 Long term (current) use of insulin; Z79.899 Other long term (current) drug therapy; Z96.653 Presence of artificial knee joint, bilateral; Z85.89 Personal history of malignant neoplasm of other organs and systems; Z86.19 Personal history of other infectious and parasitic diseases; Y83.8 Other surgical procedures as the cause of abnormal reaction of the patient, or of later complication, without mention of misadventure at the time of the procedure | CPT/HCPCS: 36416; 82948; 97597; A4663; A6021; A6154 ==

== ENCOUNTER 2018-11-06 09:45 | Day surgery (SDC) | payer MEDICARE, MEDICAID ==
[2018-11-06] MEDS ORDERED: LIDOcaine 2% 5ml jelly ONE (10:29)
== END 2018-11-06 11:48 | disposition home or self-care (01) ==
LOC: WOUND CARE 09:45
PROVIDERS: ATTEND Surgery
DX: T81.89XD Other complications of procedures, not elsewhere classified, subsequent encounter (principal); E11.622 Type 2 diabetes mellitus with other skin ulcer; L97.322 Non-pressure chronic ulcer of left ankle with fat layer exposed; E11.65 Type 2 diabetes mellitus with hyperglycemia; E11.42 Type 2 diabetes mellitus with diabetic polyneuropathy; I10 Essential (primary) hypertension; M00.9 Pyogenic arthritis, unspecified; Z79.82 Long term (current) use of aspirin; Z79.4 Long term (current) use of insulin; Z79.899 Other long term (current) drug therapy; Z96.653 Presence of artificial knee joint, bilateral; Z85.89 Personal history of malignant neoplasm of other organs and systems; Z86.19 Personal history of other infectious and parasitic diseases; Y83.8 Other surgical procedures as the cause of abnormal reaction of the patient, or of later complication, without mention of misadventure at the time of the procedure
CPT/HCPCS: 15271; 36416; 82948; A6222; Q4160; A4663; A6212

== ENCOUNTER 2018-11-14 09:25 | Outpatient (CLI) | payer MEDICARE, MEDICAID ==
[2018-11-14] MEDS ORDERED: LIDOcaine 2% 5ml jelly ONE (09:57)
== END 2018-11-14 11:24 | disposition home or self-care (01) ==
LOC: WOUND CARE 09:25 → EDSTATUS 09:30 → WOUND CARE 11:24
PROVIDERS: ATTEND Surgery
DX: T81.89XD Other complications of procedures, not elsewhere classified, subsequent encounter (principal); E11.622 Type 2 diabetes mellitus with other skin ulcer; L97.322 Non-pressure chronic ulcer of left ankle with fat layer exposed; E11.65 Type 2 diabetes mellitus with hyperglycemia; E11.42 Type 2 diabetes mellitus with diabetic polyneuropathy; I10 Essential (primary) hypertension; M00.9 Pyogenic arthritis, unspecified; Z79.82 Long term (current) use of aspirin; Z79.4 Long term (current) use of insulin; Z79.899 Other long term (current) drug therapy; Z96.653 Presence of artificial knee joint, bilateral; Z85.89 Personal history of malignant neoplasm of other organs and systems; Z86.19 Personal history of other infectious and parasitic diseases; Y83.8 Other surgical procedures as the cause of abnormal reaction of the patient, or of later complication, without mention of misadventure at the time of the procedure
CPT/HCPCS: 36416; 82948; G0463; A4663; A6021; A6154; A6446

== ENCOUNTER 2018-11-21 09:30 | Day surgery (SDC) | payer MEDICARE, MEDICAID ==
[2018-11-21] MEDS ORDERED: LIDOcaine 2% 5ml jelly ONE (09:42)
== END 2018-11-21 10:55 | disposition home or self-care (01) ==
LOC: WOUND CARE 09:30
PROVIDERS: ATTEND Surgery
DX: T81.89XD Other complications of procedures, not elsewhere classified, subsequent encounter (principal); E11.622 Type 2 diabetes mellitus with other skin ulcer; L97.322 Non-pressure chronic ulcer of left ankle with fat layer exposed; E11.65 Type 2 diabetes mellitus with hyperglycemia; E11.42 Type 2 diabetes mellitus with diabetic polyneuropathy; I10 Essential (primary) hypertension; M00.9 Pyogenic arthritis, unspecified; Z79.82 Long term (current) use of aspirin; Z79.4 Long term (current) use of insulin; Z79.899 Other long term (current) drug therapy; Z96.653 Presence of artificial knee joint, bilateral; Z85.89 Personal history of malignant neoplasm of other organs and systems; Z86.19 Personal history of other infectious and parasitic diseases; Y83.8 Other surgical procedures as the cause of abnormal reaction of the patient, or of later complication, without mention of misadventure at the time of the procedure
CPT/HCPCS: 15271; 36416; 82948; A6209; A6222; Q4160; A4663; A6446

== ENCOUNTER 2018-11-28 09:30 | Day surgery (SDC) | payer MEDICARE, MEDICAID | END 2018-11-28 11:50 | disposition home or self-care (01) | LOC: WOUND CARE 09:30 | PROVIDERS: ATTEND Surgery | DX: T81.89XD Other complications of procedures, not elsewhere classified, subsequent encounter (principal); E11.622 Type 2 diabetes mellitus with other skin ulcer; L97.322 Non-pressure chronic ulcer of left ankle with fat layer exposed; E11.65 Type 2 diabetes mellitus with hyperglycemia; E11.42 Type 2 diabetes mellitus with diabetic polyneuropathy; I10 Essential (primary) hypertension; M00.9 Pyogenic arthritis, unspecified; Z79.82 Long term (current) use of aspirin; Z79.4 Long term (current) use of insulin; Z79.899 Other long term (current) drug therapy; Z96.653 Presence of artificial knee joint, bilateral; Z85.89 Personal history of malignant neoplasm of other organs and systems; Z86.19 Personal history of other infectious and parasitic diseases; Y83.8 Other surgical procedures as the cause of abnormal reaction of the patient, or of later complication, without mention of misadventure at the time of the procedure | CPT/HCPCS: 82948; G0463; A4663; A6021; A6154; A6446 ==

== ENCOUNTER 2018-12-08 09:00 | Day surgery (SDC) | payer MEDICARE, MEDICAID ==
[2018-12-08] MEDS ORDERED: LIDOcaine 2% 5ml jelly ONE (09:23)
== END 2018-12-08 11:33 | disposition home or self-care (01) ==
LOC: WOUND CARE 09:00
PROVIDERS: ATTEND Surgery
DX: T81.89XD Other complications of procedures, not elsewhere classified, subsequent encounter (principal); E11.622 Type 2 diabetes mellitus with other skin ulcer; L97.322 Non-pressure chronic ulcer of left ankle with fat layer exposed; E11.65 Type 2 diabetes mellitus with hyperglycemia; E11.42 Type 2 diabetes mellitus with diabetic polyneuropathy; I10 Essential (primary) hypertension; M00.9 Pyogenic arthritis, unspecified; Z79.82 Long term (current) use of aspirin; Z79.4 Long term (current) use of insulin; Z79.899 Other long term (current) drug therapy; Z96.653 Presence of artificial knee joint, bilateral; Z85.89 Personal history of malignant neoplasm of other organs and systems; Z86.19 Personal history of other infectious and parasitic diseases; Y83.8 Other surgical procedures as the cause of abnormal reaction of the patient, or of later complication, without mention of misadventure at the time of the procedure
CPT/HCPCS: 36416; 82948; 97597; A4663; A6021; A6212

== ENCOUNTER 2018-12-11 09:35 | Day surgery (SDC) | payer MEDICARE, MEDICAID ==
[2018-12-11] MEDS ORDERED: LIDOcaine 2% 5ml jelly ONE (10:05)
== END 2018-12-11 11:00 | disposition home or self-care (01) ==
LOC: WOUND CARE 09:35
PROVIDERS: ATTEND Surgery
DX: T81.89XD Other complications of procedures, not elsewhere classified, subsequent encounter (principal); E11.622 Type 2 diabetes mellitus with other skin ulcer; L97.322 Non-pressure chronic ulcer of left ankle with fat layer exposed; E11.65 Type 2 diabetes mellitus with hyperglycemia; E11.42 Type 2 diabetes mellitus with diabetic polyneuropathy; I10 Essential (primary) hypertension; M00.9 Pyogenic arthritis, unspecified; Z79.82 Long term (current) use of aspirin; Z79.4 Long term (current) use of insulin; Z79.899 Other long term (current) drug therapy; Z96.653 Presence of artificial knee joint, bilateral; Z85.89 Personal history of malignant neoplasm of other organs and systems; Z86.19 Personal history of other infectious and parasitic diseases; Y83.8 Other surgical procedures as the cause of abnormal reaction of the patient, or of later complication, without mention of misadventure at the time of the procedure
CPT/HCPCS: 36416; 82948; 97597; A4663; A6021; A6154; A6212